=== PATIENT | female | born 1980 | race Caucasian/White ===

== ENCOUNTER 2020-06-18 15:46 | Emergency (ER) | payer OTHER, SELFPAY ==
[2020-06-18 16:26] VITALS: BP 129/58; PULSE 69; RESP 18; TEMP 36.1; O2SAT 98; BMI 30.2
--- NOTE | 2020-06-18 19:05 | XR_ITS ---
EXAMINATION: XR CHEST CLINICAL INFORMATION: Chest pain COMPARISON: 10/04/2018 TECHNIQUE: Frontal view of the chest was obtained. FINDINGS: No significant abnormality is noted involving the heart, lungs, mediastinum, bony thorax or soft tissues. XR/XR chest 1V IMPRESSION: Unremarkable examination.
[2020-06-18 19:25] VITALS: BP 121/70; PULSE 58; RESP 13; TEMP 36.7; O2SAT 99
--- NOTE | 2020-06-18 19:38 | ECG_ITS ---
Test Reason : CHEST AIN Blood Pressure : / mmHG Vent. Rate : 063 BPM Atrial Rate : 063 BPM P-R Int : 120 ms QRS Dur : 080 ms QT Int : 394 ms P-R-T Axes : 057 067 040 degrees QTc Int : 403 ms Normal sinus rhythm Normal ECG When compared with ECG of 04-OCT-2018 18:15, No significant change was found Referred By: Nesha Arce Electronically Signed By:SHEMAR THORNE MD
[2020-06-18 19:47] LABS: MANUAL DIFF FLAG NO
--- NOTE | 2020-06-18 19:47 | ED_ITS ---
HPI - Chest Pain General Chief Complaint: Chest Pain Stated Complaint: cp Time Seen by Provider: 06/18/20 19:29 Source: patient Mode of arrival: ambulatory Limitations: no limitations History of Present Illness HPI narrative: 40yoF c PMHx of anxiety reaction, depression, chronic migraine headaches, vertigo, asthma, bronchospasm, atypical chest pain, pleurisy, rheumatoid arthritis, recurrent UTIs an ovarian cyst presenting to the ED with complaints of left-sided chest pain pressure-like in sensation intermittent for the past week constant since 12 this afternoon with associated dizziness. Reports the chest pain is worse with laying down. Reports the dizziness is worse with standing. Denies anything making the chest pain better. Denies any changes in vision, nausea/vomiting, radiation of the chest pain, paresthesias, arm numbness/tingling, palpitations, dyspnea on exertion, orthopnea, back pain, symptoms, lower extremity edema or extremity edema or any other symptoms complaints or concerns at this time. Denies recent surgery, immobilization, recent travel no long plane train or car ride, patient denies being on any OCPs, history of PE or DVT or hypercoagulation disorder. Denies any drug usage including cocaine. Denies any alcohol usage. MD complaint: chest pain Pertinent past history: asthma Onset (ago): day(s) (Intermittent for 1 week constant since 12 this afternoon) Timing of current episode: episodic and constant Prior episodes: Yes Onset: during rest and during exertion Pain location: left chest Pain radiation: none Severity: moderate Quality: other (Pressure sensation) Relieving factors: nothing Exacerbating factors: supine Treatment prior to arrival: none Risk Factors Coronary artery disease risk factors: none Thoracic aortic dissection risk factors: none Related Data On Oral Contraceptives: No Previous Rx's Medication Instructions Recorded diazepam [Valium] 5 mg PO TID PRN #10 tab 06/18/20 naproxen 500 mg PO BID PRN #10 tab 06/18/20 Allergies Allergy/AdvReac Type Severity Reaction Status Date / Time shrimp [SHRIMP] Allergy Unknown UNKNOWN Verified 06/18/20 16:26 Review of Systems Review of Systems: Constitutional : No Weight loss, No Fever, No Chills, No Night Sweats, No Fatigue, No Malaise ENT/Mouth : No Hearing loss, No Ear Pain, No Nasal Congestion, No Sinus Pain, No Hoarseness, No sore throat, No Rhinorrhea, No Swallowing Difficulty Eyes: No Eye Pain, No Swelling, No Redness, No Foreign Body, No Discharge, No Vision Changes Cardiovascular : + Chest pain, No SOB, no Dyspnea on Exertion, No Orthopnea, No Edema, No extremity swelling, No Palpitations Respiratory : + Cough, No Sputum, No Wheezing, No Dyspnea Gastrointestinal : No Nausea, No Vomiting, No Diarrhea, No abdominal Pain, No Hematochezia, No Melena Genitourinary : No irregular bleeding, No Dysuria, No Urinary Frequency, No Hematuria,No Urinary Incontinence, No Urgency, No Flank Pain, No Urinary Flow Changes, No Hesitancy Musculoskeletal : No joint pain, No Myalgias, No Joint Swelling Skin : No Skin Lesions, No rash Neuro : + Dizziness, No Weakness, No Numbness, No Paresthesias, No Loss of Consciousness, No Headache Psych : No Anxiety/Panic, No Depression, No SI/HI/AH/VH Heme/Lymph: No Bruising, No Bleeding,No Lymphadenopathy Endocrine : No Polyuria, No Polydipsia, No Temperature Intolerance Yes all other systems are reviewed and are negative [facility] Past Medical History Attestation statement: The following information was validated with the patient. Social History Social History Alcohol intake: current Alcohol intake frequency: a few times a month Smoking Status: Never smoker Use of substances other than those prescribed or required for medical reasons: No Advance Directives: No Advance Directives Information Provided: Yes Physical Exam Vital Signs: Vital Signs: Last Vital Signs Temp 98.1 F 06/18/20 19:25 Pulse 58 06/18/20 19:25 Resp 13 06/18/20 19:25 BP 121/70 06/18/20 19:25 Pulse Ox 99 06/18/20 19:25 Body Mass Index 30.2 vital signs have been reviewed as normal and appeared to be correct. Blood pressure normal. Heart rate normal. Respiration rate normal. Temperature normal. Oxygen saturation normal. Appearance: Alert. Oriented X3. No acute distress. Head: Normal external exam. Normocephalic. Atraumatic. Eyes: PERRLA. EOMI. Conjunctiva and sclera normal. Eyelids normal. ENT: Pharynx normal. Uvula midline. Moist mucous membranes. Neck: Normal inspection. Neck supple. FROM. No adenopathy. Thyroid Normal. Trachea midline. No meningeal signs. No neck mass noted. CVS: Normal heart rate and rhythm. Heart sound normal. No murmurs noted. Pulses normal throughout. Respiratory: No respiratory distress. Painless inspiration. Breath sounds nor mal. No wheezes/rales/rhonchi noted. Chest nontender. No accessory muscle usage noted or decreased air movement noted. No rashes/lesion/induration/fluctuance or signs of infection noted. Back: Full range of motion noted. Skin: Skin warm and dry. Normal skin color. Normal skin turgor. No rashe s/lesions/lacerations noted. Extremities: No lower extremity edema. No calf tenderness noted. Extremities exhibit normal range of motion. Extremities nontender. Neuro: Oriented X 3. No motor deficit. No sensory deficit. Reflexes normal. Course Course Course Narrative: 19:38pm - 40yoF c PMHx of anxiety reaction, depression, chronic migraine headaches, vertigo, asthma, bronchospasm, atypical chest pain, pleurisy, rheumatoid arthritis, recurrent UTIs an ovarian cyst presenting to the ED with complaints of left-sided chest pain pressure-like in sensation intermittent for the past week constant since 12 this afternoon with associated dizziness. Reports the chest pain is worse with laying down. Reports the dizziness is worse with standing. - Concern for ACS vs PE vs PNA vs Anxiety vs COVID-19 - Plan: Labs, CXR, EKG. Provide 5 mg of Valium and 500 mg of naproxen and re- evaluate. MDM - Chest Pain Medical Records Data Attestation: I reviewed the patient's medical records. Lab Data Attestation: I reviewed the patient's lab results. Result diagrams: 06/18/20 19:41 06/18/20 19:41 Labs: Lab Results 06/18/20 06/18/20 06/18/20 Range/Units 19:41 19:41 19:41 WBC 6.8 (4.8-10.8) X10*3/uL RBC 4.62 (4.20-5.50) X10*6/uL Hgb 14.7 (12.0-16.0) g/dl Hct 42.3 (37-47) % MCV 91.6 (80-98) fL MCH 31.8 (27.0-33.0) pg MCHC 34.8 (31.0-35.0) g/dl RDW 11.8 (11.0-16.0) % Plt Count 270 (160-400) X10*3/uL MPV 11.3 (9.4-12.3) fL Immature Gran % (Auto) 0.3 (0.0-0.4) % Neut % (Auto) 61.9 (45-73) % Lymph % (Auto) 30.4 (20-40) % Braxton % (Auto) 5.3 (2-11) % Eos % (Auto) 1.5 (0-4) % Baso % (Auto) 0.6 (0-2) % Lymph # (Auto) 2.1 (1.2-4.9) X10*3/uL Braxton # (Auto) 0.4 (0.1-1.2) X10*3/uL Eos # (Auto) 0.1 (0.0-0.4) X10*3/uL Baso # (Auto) 0.0 (0.0-0.2) X10*3/uL Abs Immat Gran (auto) 0.02 (0.00-0.03) X10*3/uL Absolute Neuts (auto) 4.2 (2.0-8.3) X10*3/uL Absolute Nucleated RBC 0.000 (0.0-0.012) X10*3/uL Nucleated RBC % (auto) 0.0 (0.0-0.2) /100WBC PT 12.9 (10.8-13.0) SEC INR 1.1 (0.9-1.1) D-Dimer < 200 NG/ML Hold Blue Top SEE NOTE Sodium 141 (135-145) mmol/L Potassium 3.8 (3.3-5.1) mmol/L Chloride 108 (96-108) mmol/L Carbon Dioxide 25 (22-29) mmol/L Anion Gap 12 (12-20) BUN 11 (9-16) mg/dL Creatinine 0.79 (0.5-1.4) mg/dL Estim Creat Clear Calc 80.9 Estimated GFR > 60 Random Glucose 80 (60-115) mg/dL Calcium 8.9 (8.4-10.2) mg/dL Magnesium 2.0 (1.6-2.6) mg/dL Troponin I High Sens (<3.5-17.0) ng/L 06/18/20 Range/Units 19:41 WBC (4.8-10.8) X10*3/uL RBC (4.20-5.50) X10*6/uL Hgb (12.0-16.0) g/dl Hct (37-47) % MCV (80-98) fL MCH (27.0-33.0) pg MCHC (31.0-35.0) g/dl RDW (11.0-16.0) % Plt Count (160-400) X10*3/uL MPV (9.4-12.3) fL Immature Gran % (Auto) (0.0-0.4) % Neut % (Auto) (45-73) % Lymph % (Auto) (20-40) % Braxton % (Auto) (2-11) % Eos % (Auto) (0-4) % Baso % (Auto) (0-2) % Lymph # (Auto) (1.2-4.9) X10*3/uL Braxton # (Auto) (0.1-1.2) X10*3/uL Eos # (Auto) (0.0-0.4) X10*3/uL Baso # (Auto) (0.0-0.2) X10*3/uL Abs Immat Gran (auto) (0.00-0.03) X10*3/uL Absolute Neuts (auto) (2.0-8.3) X10*3/uL Absolute Nucleated RBC (0.0-0.012) X10*3/uL Nucleated RBC % (auto) (0.0-0.2) /100WBC PT (10.8-13.0) SEC INR (0.9-1.1) D-Dimer NG/ML Hold Blue Top Sodium (135-145) mmol/L Potassium (3.3-5.1) mmol/L Chloride (96-108) mmol/L Carbon Dioxide (22-29) mmol/L Anion Gap (12-20) BUN (9-16) mg/dL Creatinine (0.5-1.4) mg/dL Estim Creat Clear Calc Estimated GFR Random Glucose (60-115) mg/dL Calcium (8.4-10.2) mg/dL Magnesium (1.6-2.6) mg/dL Troponin I High Sens < 3.5 (<3.5-17.0) ng/L Imaging Data Chest x-ray: Attestation: I personally reviewed and interpreted this imaging study as follows: Radiologist's impression: FINDINGS: No significant abnormality is noted involving the heart, lungs, mediastinum, bony thorax or soft tissues. XR/XR chest 1V IMPRESSION: Unremarkable examination. ECG Data ECG #1: Attestation: I personally reviewed and interpreted this ECG as follows: ECG interpretation date: 06/18/20 ECG interpretation time: 19:00 Interpretation: Normal sinus rhythm with ventricular rate of 63 with a normal [place] interval normal QRS duration normal QT/QTC interval. No acute ischemic changes noted. No prior EKGs to compare to at this time. Scores Heart Score History: -0- slightly suspicious ECG: -0- normal Age: -0- < or = 45 Risk factory: -0- no risk factors known Troponin: -0- < or = normal limit Score: 0 Risk: 1.7% Discharge Plan Discharge Clinical Impression: Atypical chest pain Patient Disposition: Home, Self-Care Instructions: Chest Pain (ED) Prescriptions: New diazepam [Valium] 5 mg tablet 5 mg PO TID PRN (Reason: muscle spasm) Qty: 10 RF: 0 naproxen 500 mg tablet 500 mg PO BID PRN (Reason: pain) Qty: 10 RF: 0 Referrals: Ludy Daley MD [Primary Care Provider] - 2 days Stand Alone Forms: Work/School Release Print Language: Kyrgyz
[2020-06-18 19:51] LABS: Basophils Percent Auto 0.6 % (0-2); Eosinophils Absolute Auto 0.1 X10*3/uL (0.0-0.4); Eosinophils Percent Auto 1.5 % (0-4); Hematocrit 42.3 % (37-47); Hemoglobin 14.7 g/dl (12.0-16.0); Imm Gran Abs Auto 0.02 X10*3/uL (0.00-0.03); Imm Gran Pct Auto 0.3 % (0.0-0.4); Lymphocytes Absolute Auto 2.1 X10*3/uL (1.2-4.9); Lymphocytes Percent Auto 30.4 % (20-40); Mean Corpuscular HGB Conc 34.8 g/dl (31.0-35.0); Mean Corpuscular Hemoglobin 31.8 pg (27.0-33.0); Mean Corpuscular Volume 91.6 fL (80-98); Mean Platelet Volume 11.3 fL (9.4-12.3); Monocytes Absolute Auto 0.4 X10*3/uL (0.1-1.2); Monocytes Percent Auto 5.3 % (2-11); Neutrophils Absolute Auto 4.2 X10*3/uL (2.0-8.3); Neutrophils Percent Auto 61.9 % (45-73); Platelet Count 270 X10*3/uL (160-400); Red Blood Count 4.62 X10*6/uL (4.20-5.50); Red Cell Distribution Width 11.8 % (11.0-16.0); White Blood Count 6.8 X10*3/uL (4.8-10.8)
[2020-06-18 19:56] LABS: INTERNATIONAL NORM RATIO 1.1 (0.9-1.1); Prothrombin Time 12.9 SEC (10.8-13.0)
[2020-06-18 20:01] LABS: D Dimer < 200 NG/ML
[2020-06-18 20:11] LABS: Anion Gap 12 (12-20); Blood Urea Nitrogen 11 mg/dL (9-16); Calcium 8.9 mg/dL (8.4-10.2); Carbon Dioxide 25 mmol/L (22-29); Chloride 108 mmol/L (96-108); Creatinine Clr Calc Pharmacy 80.9; Estimated Glomerular Filt Rate > 60; Glucose Random 80 mg/dL (60-115); Potassium 3.8 mmol/L (3.3-5.1); Sodium 141 mmol/L (135-145)
[2020-06-18 20:26] LABS: Troponin-I High Sensitivity < 3.5 ng/L (<3.5-17.0)
[2020-06-18] MEDS: NaPROXEN 500 MG TABLET PO (20:33)
[2020-06-18 20:59] VITALS: BP 110/73; PULSE 62; RESP 15; O2SAT 98
== END 2020-06-18 21:06 | disposition home or self-care (01) ==
PROVIDERS: Physician Assistant Medical; Emergency Provider Internal Medicine; PCP Internal Medicine
DX: R07.89 Other chest pain (principal); F41.1 Generalized anxiety disorder; F43.0 Acute stress reaction; R42 Dizziness and giddiness
CPT/HCPCS: 36415; 71045; 80048; 83735; 84484; 85025; 85379; 85610; 93005; 99284

== ENCOUNTER 2020-07-22 23:13 | Emergency (ER) | payer OTHER, SELFPAY ==
[2020-07-22 23:23] VITALS: BP 121/73; PULSE 61; RESP 16; TEMP 36.6; O2SAT 98; BMI 30.2
--- NOTE | 2020-07-22 23:42 | ED_ITS ---
HPI - General Adult General Chief complaint: Back Pain/Injury Stated complaint: Lower Back pain/abd pain Time Seen by Provider: 07/22/20 23:26 Source: patient Mode of arrival: ambulatory Limitations: no limitations History of Present Illness HPI narrative: 40-year-old female who presents emergency department for evaluation of lower back pain which began yesterday. The patient does not recall any injury. She states that yesterday morning at 8:30 a.m. she had a gradual onset of lower back pain. She states the pain started in the middle of her back and radiated to her left lower back. She states that the pain then developed in her right lower back as well. The pain did radiate down her left leg yesterday and now is radiating down her right leg today. She states the pain is a constant, dull ache which is 10/10 at its worst. The pain is worse with movement. She denied any fever, chills, nausea, vomiting, chest pain, shortness of breath, cough. She has had no loss of bowel or bladder control. She denies numbness or weakness of her lower extremities. She states that she took 1 dose of naproxen yesterday and 1 dose of naproxen this morning with no relief of her pain. She states that this evening the pain got severe so she came to the emergency department for evaluation. In reviewing the record, the patient was here in May 2020 for atypical chest pain/anxiety. She states that the symptoms resolved. Related Data Previous Rx's Medication Instructions Recorded diazepam [Valium] 5 mg PO TID PRN #10 tab 06/18/20 naproxen 500 mg PO BID PRN #10 tab 06/18/20 cyclobenzaprine 10 mg PO TID PRN #20 tab 07/23/20 Allergies Allergy/AdvReac Type Severity Reaction Status Date / Time shrimp [SHRIMP] Allergy Unknown UNKNOWN Verified 06/18/20 16:26 Review of Systems Review of Systems: Yes all other systems are reviewed and are negative Neurologic: Denies Abnormal speech present [facility] Past Medical History [facility] Narrative: Patient has history of asthma, depression, anxiety, pleurisy, proctitis, rheumatoid arthritis, UTI. Past surgical history of cholecystectomy, x2 and ovarian torsion. She denies tobacco, alcohol and drug use. Social History Social History Alcohol intake: current Alcohol intake frequency: a few times a month Smoking Status: Never smoker Advance Directives: No Physical Exam Vital Signs: Vital Signs: Last Vital Signs Temp 97.9 F 07/22/20 23:23 Pulse 61 07/22/20 23:23 Resp 16 07/22/20 23:23 BP 121/73 07/22/20 23:23 Pulse Ox 98 07/22/20 23:23 Body Mass Index 30.2 Const: General: cooperative and in distress moderate (Secondary to pain) Orientation/consciousness: oriented to person and oriented to place Limitations: no limitations HENMT: Head: Yes normal to inspection, Yes normocephalic and Yes atraumatic Ears: external ears normal General nose exam: Normal external nose present Face and sinus: Yes normal facial exam Mouth: Normal oral and palatal mucosa present Throat: Yes posterior oropharynx normal Eyes: Periorbital: periorbital findings normal Eyelids: Yes eyelids normal Conjunctivae: conjunctivae normal Sclerae: sclerae normal Corneas: corneas normal Pupils: Equal, round and reactive pupils present Direct Ophthalmoscopy: normal light reflex Neck: Neck: Yes full ROM, Yes no lymphadenopathy, Yes no meningeal signs, Yes trachea midline and Yes supple Chest: Chest palpation & inspection: normal inspection of the chest and normal palpation of entire chest wall Resp: Effort & Inspection: normal respiratory effort and able to speak in complete sentences Auscultation: clear to auscultation bilaterally Cardio: Rate: regular rate Rhythm: regular rhythm Heart sounds: S1 normal heart sound present, S2 normal heart sound present and no murmurs GI: Inspection: Yes normal to inspection Palpation (GI): Soft to palpation, nontender, no guarding, not rigid and No hepatosplenomegaly present : General: Yes no CVA tenderness Back/Spine/Pelvis: Back: no CVA tenderness Cervical Spine: normal cervical lordosis Thoracic/Lumbar Spine: thoracic and lumbar spine normal to inspection, paraspinal muscle tenderness bilaterally in the lower lumbar (Moderate), lumbar spinal tenderness at L1, at L2, at L3, at L4 and at L5 and No straight leg raise positive Skin: Lesions: no lesions Rashes: no rashes Wounds: no wounds Neuro: General: oriented to person, oriented to place and no meningeal signs Cranial nerves: Yes CN's II-XII intact bilaterally and Yes Equal, round and reactive pupils present Cognition (Neuro): normal cognition Speech: No Abnormal speech present Motor exam (neuro): 5/5 motor strength present throughout Extrem: General: Yes normal to inspection and Yes full ROM Psych: Appearance: well kempt Mental Status: mental status grossly normal Speech and movement: Normal speech and movement present Affect: normal affect Attitude: cooperative Thought process: Normal thought process present Thought content: Normal thought content present Course Course Course Narrative: 40-year-old female who presents emergency department for evaluation of lower back pain which began yesterday is gotten progressively worse to the point where the pain is now 10/10. The patient's vital signs were normal, the patient was afebrile. Patient's exam did reveal lumbar vertebral tenderness and lumbar sacral paraspinal muscle tenderness with negative straight leg raise bilaterally and nonfocal neurologic exam. Patient's presentation is consistent with acute musculoskeletal so drain her lower back. The patient was treated with Toradol 60 mg IM. The patient does appear to be anxious and she was given Ativan 1 mg orally. 0047: The patient feels significantly better after the above treatment. The patient was advised to take her prescribed naproxen twice a day for 4 days, extra-strength Tylenol 1000 mg 3 times a day and Flexeril 10 mg 3 times a day as needed for pain or spasm. Patient was given a note not return to work tomorrow. She was given verbal and printed instructions discharged home. Discharge Plan Discharge Clinical Impression: Back strain Qualifiers: Encounter type: initial encounter Qualified Code(s): S39.012A - Strain of muscle, fascia and tendon of lower back, initial encounter Patient Disposition: Home, Self-Care Instructions: Acute Low Back Pain (ED) Additional Instructions: Back Pain Discharge Instructions: Take your prescribed naproxen 1 pill every 12 hours for 4 days then every 12 hours as needed for pain. Take Tyleno(acetaminophen) 500 mg pills, 2 pills every 6 hours as needed for pain. Take Flexerl(cyclobenzaprine) 10 mg pills, 1 pill every 8 hours as needed for pain or muscle spasm. This is a prescription medication. This medication will make you sleepy, therefore do not drive or work while taking this medication. Apply ice for 15 minutes to the area that hurts on your back, then apply a heating a pad on low for 15 minutes. Do this 4-6 times a day to help reduce the pain in your back. Continue with normal activities as tolerated since staying in bed and not moving around will make your pain worse. Please return to the Emergency Department or see your doctor immediately if your symptoms get worse or if you develop any new symptoms that are concerning you. Follow up with your doctor in 2 day. Please read the other printed discharge instructions on back pain. Prescriptions: New cyclobenzaprine 10 mg tablet 10 mg PO TID PRN (Reason: muscle pain or spasm) Qty: 20 RF: 0 No Action diazepam [Valium] 5 mg tablet 5 mg PO TID PRN (Reason: muscle spasm) Qty: 10 RF: 0 naproxen 500 mg tablet 500 mg PO BID PRN (Reason: pain) Qty: 10 RF: 0
[2020-07-22] MEDS: Ketorolac Tromethamine 60 MG/2 ML VIAL IM (23:52)
[2020-07-22] MEDS: LORazepam 1 MG TABLET PO (23:52)
== END 2020-07-23 01:00 | disposition home or self-care (01) ==
PROVIDERS: Emergency Provider Emergency Medicine Emergency Medical Services; PCP Internal Medicine
DX: S39.012A Strain of muscle, fascia and tendon of lower back, initial encounter (principal); X58.XXXA Exposure to other specified factors, initial encounter; F41.9 Anxiety disorder, unspecified; J45.909 Unspecified asthma, uncomplicated; Z87.440 Personal history of urinary (tract) infections; Z90.49 Acquired absence of other specified parts of digestive tract; Y93.9 Activity, unspecified; Y92.9 Unspecified place or not applicable; Y99.9 Unspecified external cause status
CPT/HCPCS: 96372; 99283; 99284; J1885

== ENCOUNTER 2020-12-25 23:16 | Emergency (ER) | payer OTHER, SELFPAY ==
[2020-12-25 23:41] VITALS: BP 110/57; PULSE 52; RESP 16; TEMP 36.7; O2SAT 99; BMI 28.3
[2020-12-26] VITALS: BP 110/57; PULSE 52; RESP 16; TEMP 36.7; O2SAT 99
--- NOTE | 2020-12-26 01:34 | ED.URI ---
HPI - URI/Sore Throat General Chief Complaint: Upper Respiratory Symptoms Stated Complaint: Flu like Time Seen by Provider: 12/26/20 00:14 Source: patient Mode of arrival: ambulatory Limitations: no limitations History of Present Illness HPI Narrative: Patient post vaccinated with COVID complaining of mild headache sinus pressure , no COVID contacts lately no fever or shortness of breath or cough Related Data Previous Rx's Medication Instructions Recorded diazepam 5 mg tablet (Valium) 5 mg PO TID PRN #10 tab 06/18/20 naproxen 500 mg tablet 500 mg PO BID PRN #10 tab 06/18/20 cyclobenzaprine 10 mg tablet 10 mg PO TID PRN #20 tab 07/23/20 Allergies Allergy/AdvReac Type Severity Reaction Status Date / Time shrimp [SHRIMP] Allergy Unknown UNKNOWN Verified 06/18/20 16:26 Review of Systems Review of Systems: Yes all other systems are reviewed and are negative [facility] Social History Social History Alcohol intake: current Alcohol intake frequency: a few times a month Advance Directives: No Advance Directives Information Provided: Yes Patient : No Physical Exam Vital Signs: Vital Signs: Last Vital Signs Temp 98.0 F 12/25/20 23:41 Pulse 52 12/25/20 23:41 Resp 16 12/25/20 23:41 BP 110/57 L 12/25/20 23:41 Pulse Ox 99 12/25/20 23:41 Body Mass Index 28.3 Appearance: Alert. Oriented X3. No acute distress. ENT: Pharynx normal. Oral Mucosa moist nasal turbinates inflamed with some clear discharge no sinus tenderness Neck: Normal inspection. Neck supple. No lymphadenopathy CVS: Normal heart rate and rhythm. Pulses normal. Respiratory: No respiratory distress. Equal air entry bilateral, no wheezing/rales/rhonchi Abdomen: Soft and nontender. Skin: Skin warm and dry. . Extremities: No lower extremity edema. Neuro: Oriented X 3. MDM - URI/Sore Throat Lab Data Attestation: I reviewed the patient's lab results. Labs: Lab Results 12/26/20 Range/Units 00:48 Coronavirus (PCR) NEGATIVE (Negative) Influenza Type A (PCR) NEGATIVE (Negative) Influenza Type B (PCR) NEGATIVE (Negative) RSV RNA Qual (PCR) NEGATIVE (Negative) Discharge Plan Discharge Clinical Impression: Allergic rhinitis Qualifiers: Allergic rhinitis trigger: other Allergic rhinitis seasonality: seasonal Qualified Code(s): J30.89 - Other allergic rhinitis Patient Disposition: Home, Self-Care Instructions: Allergic Rhinitis (ED) Additional Instructions: Take Claritin daily as needed Your COVID test is negative Prescriptions: No Action cyclobenzaprine 10 mg tablet 10 mg PO TID PRN (Reason: muscle pain or spasm) Qty: 20 RF: 0 diazepam [Valium] 5 mg tablet 5 mg PO TID PRN (Reason: muscle spasm) Qty: 10 RF: 0 naproxen 500 mg tablet 500 mg PO BID PRN (Reason: pain) Qty: 10 RF: 0
[2020-12-26 01:50] LABS: Influenza A PCR NEGATIVE (Negative); Influenza B PCR NEGATIVE (Negative); Resp Syncy Virus RNA Qual PCR NEGATIVE (Negative); SARS COV2 PCR INHOUSE NEGATIVE (Negative)
== END 2020-12-26 02:15 | disposition home or self-care (01) ==
PROVIDERS: Emergency Provider Internal Medicine; PCP Internal Medicine
DX: J30.89 Other allergic rhinitis (principal); Z20.822 Contact with and (suspected) exposure to COVID-19; R51.9 Headache, unspecified
CPT/HCPCS: 0241U; 36415; 99283; 99285

== ENCOUNTER 2021-01-18 02:31 | Emergency (ER) | payer OTHER, SELFPAY ==
[2021-01-18 02:46] VITALS: BP 116/59; PULSE 67; RESP 16; TEMP 36.1; O2SAT 99; BMI 32.4
--- NOTE | 2021-01-18 03:06 | ED.URI ---
HPI - URI/Sore Throat General Chief Complaint: Upper Respiratory Symptoms Stated Complaint: Covid symptoms Time Seen by Provider: 01/18/21 02:39 Source: patient Mode of arrival: ambulatory History of Present Illness HPI Narrative: 40-year-old female with positive COVID-19 exposure via her boyfriend now comes in with body aches but denies any fevers, nausea, vomiting. Patient has had both COVID-19 vaccines. Related Data Previous Rx's Medication Instructions Recorded diazepam 5 mg tablet (Valium) 5 mg PO TID PRN #10 tab 06/18/20 naproxen 500 mg tablet 500 mg PO BID PRN #10 tab 06/18/20 cyclobenzaprine 10 mg tablet 10 mg PO TID PRN #20 tab 07/23/20 Allergies Allergy/AdvReac Type Severity Reaction Status Date / Time shrimp [SHRIMP] Allergy Unknown UNKNOWN Verified 06/18/20 16:26 Review of Systems Review of Systems: Pertinent positives and negatives as stated in HPI 10 point review of systems is otherwise negative. [facility] Past Medical History Source: nursing notes reviewed Social History Social History Alcohol intake: never Patient Tobacco Use Status: Never used Tobacco Advance Directives: No Patient : No Physical Exam Vital Signs: Vital Signs: Last Vital Signs Temp 97.0 F 01/18/21 02:46 Pulse 67 01/18/21 02:46 Resp 16 01/18/21 02:46 BP 116/59 L 01/18/21 02:46 Pulse Ox 99 01/18/21 02:46 Body Mass Index 32.4 VITAL SIGNS: Reviewed. GENERAL: Well developed, well nourished, in no acute distress. HEAD: Normocephalic/atraumatic EYES: PERRLA, EOMI OROPHARYNX: no oral lesions noted, posterior pharynx clear but erythematous without noted tonsillar enlargement/erythema/exudates NECK: Supple, no adenopathy LUNGS: Normal breath sounds. No adventitious sounds or accessory muscle use. SpO2<99> CARDIOVASCULAR: Regular rate and rhythm without noted murmurs ABDOMEN: Soft, non-tender, non-distended with bowel sounds. Course Course Course Narrative: 40-year-old female with history and clinical presentation consistent with viral syndrome and on review of all investigations patient is found to be COVID-19 positive MDM - URI/Sore Throat Lab Data Labs: Lab Results 01/18/21 Range/Units 02:58 COVID-19 (BELL) Positive A (Negative) COVID-19 Clin Com See Note Discharge Plan Discharge Clinical Impression: Lab test positive for detection of COVID-19 virus, Viral syndrome Patient Disposition: Home, Self-Care Instructions: COVID-19 (Coronavirus Disease 2019) (ED), Viral Syndrome (ED) Additional Instructions: 1. You must quarantine for 14 days and follow all state and Federal guidelines regarding COVID-19 positivity. 2. Increase fluid hydration especially with water and treat all body aches and temperatures greater than 100.4 with [id number] Tylenol/ibuprofen. 3. Follow-up with your primary care provider next 2-3 days via telemedicine appointment. Return to the ER for acute worsening of symptoms. Prescriptions: No Action cyclobenzaprine 10 mg tablet 10 mg PO TID PRN (Reason: muscle pain or spasm) Qty: 20 RF: 0 diazepam [Valium] 5 mg tablet 5 mg PO TID PRN (Reason: muscle spasm) Qty: 10 RF: 0 naproxen 500 mg tablet 500 mg PO BID PRN (Reason: pain) Qty: 10 RF: 0 Referrals: Physician,Unknown [Primary Care Provider] - 2 days
[2021-01-18 03:12] LABS: IDNOW Serial# 9DD0AD1C
[2021-01-18 03:15] LABS: COVID-19 Test Positive (Negative)
[2021-01-18 05:14] VITALS: PULSE 72; RESP 16; O2SAT 100
== END 2021-01-18 05:17 | disposition home or self-care (01) ==
PROVIDERS: Emergency Provider Student in an Organized Health Care Education/Training Program
DX: U07.1 COVID-19 (principal); B34.9 Viral infection, unspecified
CPT/HCPCS: 36415; 87635; 99283; 99284

== ENCOUNTER 2021-01-23 21:48 | Emergency (ER) | payer OTHER, SELFPAY ==
--- NOTE | 2021-01-23 | ECG_ITS ---
Test Reason : CHEST PAIN Blood Pressure : / mmHG Vent. Rate : 066 BPM Atrial Rate : 066 BPM P-R Int : 122 ms QRS Dur : 084 ms QT Int : 392 ms P-R-T Axes : 050 077 044 degrees QTc Int : 410 ms Normal sinus rhythm Normal ECG When compared with ECG of 18-JUN-2020 16:19, No significant change was found Referred By: Generic ED Physician Electronically Signed By:LAKISHA RIOS
--- NOTE | ~2021-01-23 | XR_ITS ---
EXAMINATION: XR CHEST CLINICAL INFORMATION: COVID positive COMPARISON: 06/18/2020 TECHNIQUE: AP portable upright view of the chest was obtained. FINDINGS: No plain film evidence for COVID pneumonia. Incidental azygous fissure again noted. Normal lung volumes. No consolidation effusion or pneumothorax. Normal, stable cardiac and mediastinal contours. Cholecystectomy. Normal gas pattern. Normal osseous structures. XR/XR chest 1V IMPRESSION: No focal pneumonia.
[2021-01-23 22:04] VITALS: BP 113/70; PULSE 65; RESP 18; TEMP 36.6; O2SAT 98; BMI 33.3
--- NOTE | 2021-01-23 22:26 | ED_ITS ---
HPI - Chest Pain General Chief Complaint: Chest Pain Stated Complaint: covid + Time Seen by Provider: 01/23/21 22:16 Source: patient Mode of arrival: ambulatory Limitations: no limitations History of Present Illness HPI narrative: Patient comes emergency room complaining of substernal chest pain that is present with coughing. Patient states that she has been having dry cough for a week, 6 days ago she tested positive for COVID-19. Patient denies shortness of breath, no vomiting or diarrhea. Patient states that this time she has no chest pain, is only happens when she coughs, in the middle of the chest. Related Data Previous Rx's Medication Instructions Recorded diazepam 5 mg tablet (Valium) 5 mg PO TID PRN #10 tab 06/18/20 naproxen 500 mg tablet 500 mg PO BID PRN #10 tab 06/18/20 cyclobenzaprine 10 mg tablet 10 mg PO TID PRN #20 tab 07/23/20 benzonatate 100 mg capsule 100 mg PO TID PRN #10 cap 01/23/21 (Laron Betancourt) Allergies Allergy/AdvReac Type Severity Reaction Status Date / Time shrimp [SHRIMP] Allergy Unknown UNKNOWN Verified 06/18/20 16:26 Review of Systems Review of Systems: Constitutional : No Weight loss, No Fever, No Chills, No Night Sweats, No Fatigue, No Malaise ENT/Mouth : No Hearing loss, No Ear Pain, No Nasal Congestion, No Sinus Pain, No Hoarseness, No sore throat, No Rhinorrhea, No Swallowing Difficulty Eyes: No Eye Pain, No Swelling, No Redness, No Foreign Body, No Discharge, No Vision Changes Cardiovascular : Substernal chest pressure while coughing No SOB, No Dyspnea on Exertion, No Orthopnea, No Edema, No Palpitations Respiratory : Dry Cough, No Sputum, No Wheezing, No Smoke Exposure, No Dyspnea Gastrointestinal : No Nausea, No Vomiting, No Diarrhea, No Constipation, No abdominal Pain, No Hematochezia, No Melena Genitourinary : no irregular bleeding, No Dysuria, No Urinary Frequency, No Hematuria, No Urinary Incontinence, No Urgency, No Flank Pain, No Urinary Flow Changes, No Hesitancy Musculoskeletal : No joint pain, No Myalgias, No Joint Swelling Skin : No Skin Lesions, No rash Neuro : No Weakness, No Numbness, No Paresthesias, No Loss of Consciousness, No Dizziness, No Headache Psych : No Anxiety/Panic, No Depression, No SI/HI/AH/VH, No Social Issues, Heme/Lymph: No Bruising, No Bleeding,No Lymphadenopathy Endocrine : No Polyuria, No Polydipsia, No Temperature Intolerance COUNT INCLUDES THE [facility] Past Medical History Medical History (Updated 01/23/21 @ 23:51 by Lindsey Noriega MD) COVID-19 Social History Social History Alcohol intake: never Patient Tobacco Use Status: Never used Tobacco Use of substances other than those prescribed or required for medical reasons: No Advance Directives: No Advance Directives Information Provided: No Physical Exam Vital Signs: Vital Signs: Last Vital Signs Temp 97.8 F 01/23/21 22:04 Pulse 65 01/23/21 22:04 Resp 18 01/23/21 22:04 BP 113/70 01/23/21 22:04 Pulse Ox 98 01/23/21 22:04 Body Mass Index 33.3 Const: Other: Appearance: Alert. Oriented X3. No acute distress. Well- appearing Eyes: Pupils equal, round and reactive to light. ENT: Pharynx normal. Neck: Normal inspection. Neck supple. No lymph nodes noted. No crepitus CVS: Normal heart rate and rhythm. Pulses normal. Normal S1 and S2, clear reproducible chest pain to palpation over the sternum Respiratory: No respiratory distress. Breath sounds normal. No Wheezing. No rales Abdomen: Soft and nontender. No rigidity. No distention. Skin: Skin warm and dry. Normal skin color. Normal skin turgor. Extremities: No lower extremity edema. No lower extremity edema. No Lacerations. No Rash Neuro: Oriented X 3. No motor deficit. No sensory deficit. Moving all extermities. No slurred speech. Course Course Course Narrative: I discussed the x-ray finding with the patient, patient's pain is musculoskeletal, has reproducible pain on deep palpation, and the chest pain only is present with coughs, otherwise asymptomatic. Chest pain from cardiac etiology not suspected at this time. MDM - Chest Pain Imaging Data Chest x-ray: Radiologist's impression: No plain film evidence for COVID pneumonia. Incidental azygous fissure again noted. Normal lung volumes. No consolidation effusion or pneumothorax. Normal, stable cardiac and mediastinal contours. Cholecystectomy. Normal gas pattern. Normal osseous structures. XR/XR chest 1V IMPRESSION: No focal pneumonia. ECG Data ECG #1: Attestation: I personally reviewed and interpreted this ECG as follows: (Heart rate 66, no ST segment depression or elevation, no T-wave inversion, QTC 410) Discharge Plan Discharge Clinical Impression: Costochondritis Patient Disposition: Home, Self-Care Instructions: Costochondritis (ED) Additional Instructions: Please follow-up with your primary care physician tomorrow. If you have any worsening or new symptoms, please return to the emergency room or call 911 Prescriptions: New benzonatate [Tessalon Perles] 100 mg capsule 100 mg PO TID PRN (Reason: cough) Qty: 10 RF: 0 No Action cyclobenzaprine 10 mg tablet 10 mg PO TID PRN (Reason: muscle pain or spasm) Qty: 20 RF: 0 diazepam [Valium] 5 mg tablet 5 mg PO TID PRN (Reason: muscle spasm) Qty: 10 RF: 0 naproxen 500 mg tablet 500 mg PO BID PRN (Reason: pain) Qty: 10 RF: 0
[2021-01-23] MEDS: Benzonatate 100 MG CAPSULE 200 MG PO (23:10)
== END 2021-01-24 00:10 | disposition home or self-care (01) ==
PROVIDERS: Emergency Provider Emergency Medicine
DX: M94.0 Chondrocostal junction syndrome [Tietze] (principal); R07.89 Other chest pain; R05 Cough; Z20.822 Contact with and (suspected) exposure to COVID-19; Z79.899 Other long term (current) drug therapy; Z86.16 Personal history of COVID-19
CPT/HCPCS: 71045; 93005; 99284

== ENCOUNTER 2021-07-17 21:34 | Emergency (ER) | payer OTHER, SELFPAY ==
--- NOTE | ~2021-07-17 | CT_ITS ---
EXAMINATION: CT ABDOMEN AND PELVIS WITH CONTRAST CLINICAL INFORMATION: Right lower quadrant pain COMPARISON: 05/12/2018 TECHNIQUE: Multidetector volumetric images were obtained from the superior aspect of the liver through the pubic symphysis following administration 85 mL of Omnipaque 350 intravenous contrast. Sagittal and coronal reformatted images were obtained on the technologist's workstation. Oral contrast: No This CT examination was performed using dose optimization techniques as appropriate, variously including the following: *Automated exposure control *Adjustment of mA and/or kV according to patient size (this includes techniques or standardized protocols for targeted exams where dose is matched to indication/reason for exam; i.e. extremities or head) *Use of iterative reconstruction technique DLP: 464 mGy-cm FINDINGS: LUNG BASES: The visualized lung bases are unremarkable. LIVER, GALLBLADDER, AND BILIARY TREE: The liver is normal in size, shape, and attenuation. No biliary ductal dilatation is present. Multiple hypoattenuating lesions throughout the liver, too small to fully characterize. Cholecystectomy. PANCREAS: Unremarkable. SPLEEN: Unremarkable. ADRENAL GLANDS: Unremarkable. KIDNEYS AND URETERS: The kidneys are normal in size, shape, and attenuation. No hydronephrosis, hydroureter, or calculi seen. No perinephric stranding. BLADDER: Unremarkable. GASTROINTESTINAL TRACT: The small and large bowel are unremarkable. The appendix is unremarkable. ABDOMINAL WALL: No significant hernia is appreciated. LYMPH NODES: Normal. VASCULAR: Unremarkable. PELVIC VISCERA: Anteverted uterus. No suspicious adnexal mass. Prominent follicles in both ovaries. Trace pelvic free fluid. OSSEOUS STRUCTURES: No acute or suspicious osseous abnormality. CT/CT abdomen pelvis w con IMPRESSION: No suspicious findings of the abdomen or pelvis. Prominent follicles of both ovaries with trace pelvic free fluid, likely physiologic. Fleischner guidelines were followed.
--- NOTE | ~2021-07-17 | US_ITS ---
EXAMINATION: ULTRASOUND OF THE PELVIS CLINICAL INFORMATION: Pain. Rule out torsion.. COMPARISON: None. TECHNIQUE: Transabdominal and transvaginal pelvic ultrasound. Doppler evaluation with spectral analysis was performed. A transvaginal study was performed in addition to the transabdominal study which did not yield an adequate examination of the uterus and ovaries due to superimposed distended gas-filled loops of bowel. FINDINGS: The uterus is normal in size and appearance, measuring 12.9 x 3.7 x 6.4 cm longitudinally, anteroposteriorly and transversely. The endometrial stripe thickness is normal, measuring 1.2 cm in thickness. No focal myometrial mass is seen. Nabothian cyst at the cervix. The ovaries bilaterally are visualized and appear normal, with the right ovary measuring 4 x 2.8 x 3.3 cm and the left ovary measuring 4.4 x 1.7 x 2.9 cm. There are normal arterial and venous spectral waveforms bilaterally. Trace pelvic free fluid. US/US pelvic and transvaginal IMPRESSION: Unremarkable pelvic ultrasound. No evidence of active ovarian torsion at this time..
--- NOTE | ~2021-07-17 | US_ITS ---
EXAMINATION: ULTRASOUND OF THE PELVIS CLINICAL INFORMATION: Pain. Rule out torsion.. COMPARISON: None. TECHNIQUE: Transabdominal and transvaginal pelvic ultrasound. Doppler evaluation with spectral analysis was performed. A transvaginal study was performed in addition to the transabdominal study which did not yield an adequate examination of the uterus and ovaries due to superimposed distended gas-filled loops of bowel. FINDINGS: The uterus is normal in size and appearance, measuring 12.9 x 3.7 x 6.4 cm longitudinally, anteroposteriorly and transversely. The endometrial stripe thickness is normal, measuring 1.2 cm in thickness. No focal myometrial mass is seen. Nabothian cyst at the cervix. The ovaries bilaterally are visualized and appear normal, with the right ovary measuring 4 x 2.8 x 3.3 cm and the left ovary measuring 4.4 x 1.7 x 2.9 cm. There are normal arterial and venous spectral waveforms bilaterally. Trace pelvic free fluid. US/US pelvic ovarian doppler IMPRESSION: Unremarkable pelvic ultrasound. No evidence of active ovarian torsion at this time..
[2021-07-17 21:37] VITALS: BP 113/79; PULSE 62; RESP 17; TEMP 36.2; O2SAT 98; BMI 29.9
[2021-07-17 23:46] VITALS: BP 116/62; PULSE 56; RESP 12; TEMP 36.9; O2SAT 100
--- NOTE | 2021-07-17 23:47 | ED_ITS ---
HPI - Female Genitourinary General Chief complaint: Urogenital-Female Stated complaint: uro gen female Time Seen by Provider: 07/17/21 21:51 Source: patient Mode of arrival: ambulatory Limitations: no limitations History of Present Illness HPI Narrative: Patient comes to the emergency room complaining of right lower quadrant pain. Patient states it started tonight while shopping. The pain is intermittent, radiates towards the back. Patient states she has had ovarian cysts in the past. Patient denies nausea vomiting or diarrhea, no hematuria or dysuria. No flank pain. No fever chills. Related Data Previous Rx's Medication Instructions Recorded diazepam 5 mg tablet (Valium) 5 mg PO TID PRN #10 tab 06/18/20 naproxen 500 mg tablet 500 mg PO BID PRN #10 tab 06/18/20 cyclobenzaprine 10 mg tablet 10 mg PO TID PRN #20 tab 07/23/20 benzonatate 100 mg capsule 100 mg PO TID PRN #10 cap 01/23/21 (Tessalon [place]) ketorolac 10 mg tablet 10 mg PO TID PRN 5 Days #10 tab 07/18/21 tramadol 50 mg tablet 50 mg PO BID PRN #7 tab 07/18/21 Allergies Allergy/AdvReac Type Severity Reaction Status Date / Time No Known Allergies Allergy Verified 07/17/21 21:37 Review of Systems Review of Systems: Constitutional : No Weight loss, No Fever, No Chills, No Night Sweats, No Fatigue, No Malaise ENT/Mouth : No Hearing loss, No Ear Pain, No Nasal Congestion, No Sinus Pain, No Hoarseness, No sore throat, No Rhinorrhea, No Swallowing Difficulty Eyes: No Eye Pain, No Swelling, No Redness, No Foreign Body, No Discharge, No Vision Changes Cardiovascular : No Chest Pain, No SOB, No Dyspnea on Exertion, No Orthopnea, No Edema, No Palpitations Respiratory : No Cough, No Sputum, No Wheezing, No Smoke Exposure, No Dyspnea Gastrointestinal : No Nausea, No Vomiting, No Diarrhea, No Constipation, complaining of right lower quadrant pain radiating towards the back, No Hematochezia, No Melena Genitourinary : no irregular bleeding, No Dysuria, No Urinary Frequency, No Hematuria, No Urinary Incontinence, No Urgency, No Flank Pain, No Urinary Flow Changes, No Hesitancy Musculoskeletal : No joint pain, No Myalgias, No Joint Swelling Skin : No Skin Lesions, No rash Neuro : No Weakness, No Numbness, No Paresthesias, No Loss of Consciousness, No Dizziness, No Headache Psych : No Anxiety/Panic, No Depression, No SI/HI/AH/VH, No Social Issues, Heme/Lymph: No Bruising, No Bleeding,No Lymphadenopathy Endocrine : No Polyuria, No Polydipsia, No Temperature Intolerance [facility] Past Medical History Medical History Asthma COVID-19 Migraine Ovarian cyst Surgical History Hx of tubal ligation Social History Social History Alcohol intake: never Patient Tobacco Use Status: Never used Tobacco Advance Directives: No Advance Directives Information Provided: Yes Patient : No Physical Exam Vital Signs: Vital Signs: Last Vital Signs Temp 98.6 F 07/18/21 02:26 Pulse 52 07/18/21 02:26 Resp 12 07/18/21 02:26 BP 121/68 07/18/21 02:26 Pulse Ox 99 07/18/21 02:26 BMI result Body Mass Index 29.9 Const: Other: Appearance: Alert. Oriented X3. No acute distress. Eyes: Pupils equal, round and reactive to light. ENT: Pharynx normal. Neck: Normal inspection. Neck supple. No lymph nodes noted. No crepitus CVS: Normal heart rate and rhythm. Pulses normal. Normal S1 and S2 Respiratory: No respiratory distress. Breath sounds normal. No Wheezing. No rales Abdomen: Soft , pain to palpation on the right lower quadrant, borderline rebound and guarding Back: No CVA tenderness Skin: Skin warm and dry. Normal skin color. Normal skin turgor. Extremities: No lower extremity edema. No Lacerations. No Rash Neuro: Oriented X 3. No motor deficit. No sensory deficit. Moving all extermi ties. No slurred speech. Course Course Course Narrative: I discussed the CT scan and the ultrasound with the patient, at this time, there is no evidence of ovarian torsion. However she has prominent ovarian cyst. 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 Patient received 1 dose of IV Toradol and 1 p.o. dose of tramadol. MDM - Female Genitourinary Lab Data Result diagrams: 07/18/21 00:11 07/18/21 00:11 Labs: Lab Results 07/18/21 07/18/21 07/18/21 Range/Units 00:11 00:11 00:22 WBC 8.9 (4.8-10.8) X10*3/uL RBC 4.59 (4.20-5.50) X10*6/uL Hgb 14.6 (12.0-16.0) g/dl Hct 42.5 (37.0-47.0) % MCV 92.6 (80.0-98.0) fL MCH 31.8 (27.0-33.0) pg MCHC 34.4 (31.0-35.0) g/dl RDW 12.1 (11.0-16.0) % Plt Count 247 (160-400) X10*3/uL MPV 11.3 (9.4-12.3) fL Immature Gran % (Auto) 0.2 (0.0-0.4) % Neut % (Auto) 67.2 (45-73) % Lymph % (Auto) 25.3 (20-40) % Young % (Auto) 5.5 (2-11) % Eos % (Auto) 1.2 (0-4) % Baso % (Auto) 0.6 (0-2) % Lymph # (Auto) 2.2 (1.2-4.9) X10*3/uL Young # (Auto) 0.5 (0.1-1.2) X10*3/uL Eos # (Auto) 0.1 (0.0-0.4) X10*3/uL Baso # (Auto) 0.1 (0.0-0.2) X10*3/uL Abs Immat Gran (auto) 0.02 (0.00-0.03) X10*3/uL Absolute Neuts (auto) 6.0 (2.0-8.3) x10*3/uL Absolute Nucleated RBC 0.000 (0.0-0.012) X10*3/uL Nucleated RBC % (auto) 0.0 (0.0-0.2) /100WBC Sodium 140 (135-145) mmol/L Potassium 4.3 (3.3-5.1) mmol/L Chloride 106 (96-108) mmol/L Carbon Dioxide 26 (22-29) mmol/L Anion Gap 12 (12-20) BUN 14 (9-16) mg/dL Creatinine 0.74 (0.5-1.4) mg/dL Estim Creat Clear Calc 85.0 Estimated GFR > 60 Random Glucose 87 (60-115) mg/dL Calcium 9.9 D (8.4-10.2) mg/dL Total Bilirubin 1.7 H (0.0-1.0) mg/dL Direct Bilirubin 0.6 H (0.0-0.5) mg/dL AST 17 (5-31) U/L ALT 19 (0-31) U/L Alkaline Phosphatase 59 (39-117) U/L Total Protein 7.3 (6.5-8.0) g/dL Albumin 4.2 (3.5-5.0) g/dL Urine Color YELLOW Urine Appearance CLEAR Urine pH 6.0 (5.0-8.0) Ur Specific [place] >= 1.030 H (1.005-1.025) Urine Protein NEG (NEG-TRACE) MG/DL Urine Glucose (UA) NEG (NEG) MG/DL Urine Ketones NEG (NEG) MG/DL Urine Blood NEG (NEG) Urine Nitrite NEG (NEG) Ur Leukocyte Esterase NEG (NEG) Urine Test (NEGATIVE) 07/18/21 Range/Units 00:22 WBC (4.8-10.8) X10*3/uL RBC (4.20-5.50) X10*6/uL Hgb (12.0-16.0) g/dl Hct (37.0-47.0) % MCV (80.0-98.0) fL MCH (27.0-33.0) pg MCHC (31.0-35.0) g/dl RDW (11.0-16.0) % Plt Count (160-400) X10*3/uL MPV (9.4-12.3) fL Immature Gran % (Auto) (0.0-0.4) % Neut % (Auto) (45-73) % Lymph % (Auto) (20-40) % Young % (Auto) (2-11) % Eos % (Auto) (0-4) % Baso % (Auto) (0-2) % Lymph # (Auto) (1.2-4.9) X10*3/uL Young # (Auto) (0.1-1.2) X10*3/uL Eos # (Auto) (0.0-0.4) X10*3/uL Baso # (Auto) (0.0-0.2) X10*3/uL Abs Immat Gran (auto) (0.00-0.03) X10*3/uL Absolute Neuts (auto) (2.0-8.3) x10*3/uL Absolute Nucleated RBC (0.0-0.012) X10*3/uL Nucleated RBC % (auto) (0.0-0.2) /100WBC Sodium (135-145) mmol/L Potassium (3.3-5.1) mmol/L Chloride (96-108) mmol/L Carbon Dioxide (22-29) mmol/L Anion Gap (12-20) BUN (9-16) mg/dL Creatinine (0.5-1.4) mg/dL Estim Creat Clear Calc Estimated GFR Random Glucose (60-115) mg/dL Calcium (8.4-10.2) mg/dL Total Bilirubin (0.0-1.0) mg/dL Direct Bilirubin (0.0-0.5) mg/dL AST (5-31) U/L ALT (0-31) U/L Alkaline Phosphatase (39-117) U/L Total Protein (6.5-8.0) g/dL Albumin (3.5-5.0) g/dL Urine Color Urine Appearance Urine pH (5.0-8.0) Ur Specific [place] (1.005-1.025) Urine Protein (NEG-TRACE) MG/DL Urine Glucose (UA) (NEG) MG/DL Urine Ketones (NEG) MG/DL Urine Blood (NEG) Urine Nitrite (NEG) Ur Leukocyte Esterase (NEG) Urine Test NEGATIVE (NEGATIVE) Imaging Data US - abdomen: Radiologist's impression: FINDINGS: The uterus is normal in size and appearance, measuring 12.9 x 3.7 x 6.4 cm longitudinally, anteroposteriorly and transversely. The endometrial stripe thickness is normal, measuring 1.2 cm in thickness. No focal myometrial mass is seen. Nabothian cyst at the cervix. The ovaries bilaterally are visualized and appear normal, with the right ovary measuring 4 x 2.8 x 3.3 cm and the left ovary measuring 4.4 x 1.7 x 2.9 cm. There are normal arterial and venous spectral waveforms bilaterally. Trace pelvic free fluid. US/US pelvic ovarian doppler IMPRESSION: Unremarkable pelvic ultrasound. No evidence of active ovarian torsion at this time.. CT scan - abdomen: Radiologist's impression: FINDINGS: LUNG BASES: The visualized lung bases are unremarkable.? LIVER, GALLBLADDER, AND BILIARY TREE: The liver is normal in size, shape, and attenuation. No biliary ductal dilatation is present. Multiple hypoattenuating lesions throughout the liver, too small to fully characterize. Cholecystectomy.? PANCREAS: Unremarkable.? SPLEEN: Unremarkable.? ADRENAL GLANDS: Unremarkable.? KIDNEYS AND URETERS: The kidneys are normal in size, shape, and attenuation. No hydronephrosis, hydroureter, or calculi seen. No perinephric stranding. ? BLADDER: Unremarkable.? GASTROINTESTINAL TRACT: The small and large bowel are unremarkable. The appendix is unremarkable.? ABDOMINAL WALL: No significant hernia is appreciated.? LYMPH NODES: Normal. VASCULAR: Unremarkable. PELVIC VISCERA: Anteverted uterus. No suspicious adnexal mass. Prominent follicles in both ovaries. Trace pelvic free fluid.? OSSEOUS STRUCTURES: No acute or suspicious osseous abnormality.? CT/CT abdomen pelvis w con IMPRESSION: No suspicious findings of the abdomen or pelvis. Prominent follicles of both ovaries with trace pelvic free fluid, likely physiologic. ? ? ? Fleischner guidelines were followed. Discharge Plan Discharge Clinical Impression: Ovarian cyst Patient Disposition: Home, Self-Care Instructions: Ovarian Cyst (ED) Additional Instructions: Please follow-up with your primary care physician tomorrow. If you have any worsening or new symptoms, please return to the emergency room or call 911 Prescriptions: New ketorolac 10 mg tablet 10 mg PO TID PRN (Reason: pain) 5 Days Qty: 10 0RF Rx Instructions: Do not use naproxen, ibuprofen. You may use tramadol or Tylenol if needed tramadol 50 mg tablet 50 mg PO BID PRN (Reason: pain) Qty: 7 0RF No Action cyclobenzaprine 10 mg tablet 10 mg PO TID PRN (Reason: muscle pain or spasm) Qty: 20 0RF benzonatate [Tessalon Perles] 100 mg capsule 100 mg PO TID PRN (Reason: cough) Qty: 10 0RF diazepam [Valium] 5 mg tablet 5 mg PO TID PRN (Reason: muscle spasm) Qty: 10 0RF naproxen 500 mg tablet 500 mg PO BID PRN (Reason: pain) Qty: 10 0RF
[2021-07-18 00:16] LABS: MANUAL DIFF FLAG NO
[2021-07-18 00:22] LABS: Basophils Absolute Auto 0.1 X10*3/uL (0.0-0.2); Basophils Percent Auto 0.6 % (0-2); Eosinophils Absolute Auto 0.1 X10*3/uL (0.0-0.4); Eosinophils Percent Auto 1.2 % (0-4); Hematocrit 42.5 % (37.0-47.0); Hemoglobin 14.6 g/dl (12.0-16.0); Imm Gran Abs Auto 0.02 X10*3/uL (0.00-0.03); Imm Gran Pct Auto 0.2 % (0.0-0.4); Lymphocytes Absolute Auto 2.2 X10*3/uL (1.2-4.9); Lymphocytes Percent Auto 25.3 % (20-40); Mean Corpuscular HGB Conc 34.4 g/dl (31.0-35.0); Mean Corpuscular Hemoglobin 31.8 pg (27.0-33.0); Mean Corpuscular Volume 92.6 fL (80.0-98.0); Mean Platelet Volume 11.3 fL (9.4-12.3); Monocytes Absolute Auto 0.5 X10*3/uL (0.1-1.2); Monocytes Percent Auto 5.5 % (2-11); Neutrophils Percent Auto 67.2 % (45-73); Platelet Count 247 X10*3/uL (160-400); Red Blood Count 4.59 X10*6/uL (4.20-5.50); Red Cell Distribution Width 12.1 % (11.0-16.0); White Blood Count 8.9 X10*3/uL (4.8-10.8)
[2021-07-18 00:40] LABS: Alanine Aminotransferase 19 U/L (0-31); Albumin Level 4.2 g/dL (3.5-5.0); Alkaline Phosphatase 59 U/L (39-117); Anion Gap 12 (12-20); Aspartate Amino Transferase 17 U/L (5-31); Bilirubin Direct 0.6 mg/dL (0.0-0.5); Bilirubin Total 1.7 mg/dL (0.0-1.0); Blood Urea Nitrogen 14 mg/dL (9-16); Calcium 9.9 mg/dL (8.4-10.2); Carbon Dioxide 26 mmol/L (22-29); Chloride 106 mmol/L (96-108); Estimated Glomerular Filt Rate > 60; Glucose Random 87 mg/dL (60-115); Potassium 4.3 mmol/L (3.3-5.1); Sodium 140 mmol/L (135-145); Total Protein 7.3 g/dL (6.5-8.0)
[2021-07-18 00:41] LABS: Appearance Urine CLEAR; Color Urine YELLOW; Glucose Urine UA NEG (NEG); Leukocyte Esterase Urine NEG (NEG); Nitrite Urine NEG (NEG); Specific Gravity - Urine >= 1.030 (1.005-1.025); Urine Blood NEG (NEG); Urine Ketones NEG (NEG); Urine Protein NEG (NEG-TRACE)
[2021-07-18] MEDS: Ketorolac Tromethamine 30 MG/ML VIAL IVPUSH (00:42)
[2021-07-18 00:48] LABS: UPreg QC Valid YES; Urine Pregnancy NEGATIVE (NEGATIVE)
[2021-07-18] MEDS: iohexoL 350 MG/ML 100 ML INFUS..BTL 85 ML IV (00:57)
[2021-07-18 02:26] VITALS: BP 121/68; PULSE 52; RESP 12; TEMP 37; O2SAT 99
== END 2021-07-18 03:40 | disposition home or self-care (01) ==
PROVIDERS: Emergency Provider Emergency Medicine; PCP Internal Medicine
DX: N83.201 Unspecified ovarian cyst, right side (principal); R10.31 Right lower quadrant pain; M54.50 Low back pain, unspecified; Z79.899 Other long term (current) drug therapy
CPT/HCPCS: 36415; 74177; 76830; 76856; 80048; 80076; 81003; 81025; 85025; 93975; 96374; 99283; 99284; J1885; Q9967

== ENCOUNTER 2021-09-19 06:46 | Outpatient (REF) | payer OTHER, SELFPAY ==
--- NOTE | ~2021-09-19 | XR_ITS ---
EXAMINATION: XI KNEES, STANDING AP XR KNEE, RIGHT XR KNEE, LEFT CLINICAL INFORMATION: Knee pain, M25.569 COMPARISON: Standing AP knees and right knee radiographs 01/15/2017. TECHNIQUE: Standing AP view of both knees is performed. In addition, each knee is imaged in lateral and axial patella views. FINDINGS: Right: Normal bony mineralization. No fracture, dislocation, or destructive process. No definite joint narrowing. No erosive change or chondrocalcinosis or subchondral sclerosis. No effusion. Hoffa's fat pad appears normal. Axial view patella shows no lateralization or tilting. Left: Normal bony mineralization. No fracture, dislocation, or destructive process. No definite joint narrowing. No erosive change or chondrocalcinosis or subchondral sclerosis. No effusion. Hoffa's fat pad appears normal. Punctate soft tissue mineralization overlies the mid patellar tendon on lateral view. Axial view patella shows no lateralization or tilting. XR/XR knee standing BI IMPRESSION: -No focal joint narrowing or subchondral sclerosis. No erosive change. -No suprapatellar effusion. -No lateralization or tilting patella.
--- NOTE | ~2021-09-19 | XR_ITS ---
EXAMINATION: XI KNEES, STANDING AP XR KNEE, RIGHT XR KNEE, LEFT CLINICAL INFORMATION: Knee pain, M25.569 COMPARISON: Standing AP knees and right knee radiographs 01/15/2017. TECHNIQUE: Standing AP view of both knees is performed. In addition, each knee is imaged in lateral and axial patella views. FINDINGS: Right: Normal bony mineralization. No fracture, dislocation, or destructive process. No definite joint narrowing. No erosive change or chondrocalcinosis or subchondral sclerosis. No effusion. Hoffa's fat pad appears normal. Axial view patella shows no lateralization or tilting. Left: Normal bony mineralization. No fracture, dislocation, or destructive process. No definite joint narrowing. No erosive change or chondrocalcinosis or subchondral sclerosis. No effusion. Hoffa's fat pad appears normal. Punctate soft tissue mineralization overlies the mid patellar tendon on lateral view. Axial view patella shows no lateralization or tilting. XR/XR knee LT 2V IMPRESSION: -No focal joint narrowing or subchondral sclerosis. No erosive change. -No suprapatellar effusion. -No lateralization or tilting patella.
--- NOTE | ~2021-09-19 | XR_ITS ---
EXAMINATION: XI KNEES, STANDING AP XR KNEE, RIGHT XR KNEE, LEFT CLINICAL INFORMATION: Knee pain, M25.569 COMPARISON: Standing AP knees and right knee radiographs 01/15/2017. TECHNIQUE: Standing AP view of both knees is performed. In addition, each knee is imaged in lateral and axial patella views. FINDINGS: Right: Normal bony mineralization. No fracture, dislocation, or destructive process. No definite joint narrowing. No erosive change or chondrocalcinosis or subchondral sclerosis. No effusion. Hoffa's fat pad appears normal. Axial view patella shows no lateralization or tilting. Left: Normal bony mineralization. No fracture, dislocation, or destructive process. No definite joint narrowing. No erosive change or chondrocalcinosis or subchondral sclerosis. No effusion. Hoffa's fat pad appears normal. Punctate soft tissue mineralization overlies the mid patellar tendon on lateral view. Axial view patella shows no lateralization or tilting. XR/XR knee RT 2V IMPRESSION: -No focal joint narrowing or subchondral sclerosis. No erosive change. -No suprapatellar effusion. -No lateralization or tilting patella.
== END 2021-09-19 06:47 | disposition home or self-care (01) ==
LOC: HO.HOSX 06:46
PROVIDERS: Visit Provider Orthopaedic Surgery
DX: M06.9 Rheumatoid arthritis, unspecified (principal); M25.361 Other instability, right knee; M25.362 Other instability, left knee
CPT/HCPCS: 73560; 73565; 99202

== ENCOUNTER 2021-10-02 12:39 | Emergency (ER) | payer OTHER, SELFPAY ==
--- NOTE | ~2021-10-02 | XR_ITS ---
EXAMINATION: XR CHEST CLINICAL INFORMATION: Upper respiratory tract infection COMPARISON: Previous x-ray January 2021 TECHNIQUE: Frontal view of the chest was obtained. FINDINGS: The cardiac and mediastinal contours are normal. The lungs are clear. There is no pleural effusion or pneumothorax. There are new radiopaque densities projecting over the soft tissues right lateral lower chest wall and over the skin presumably representing something on the patient's clothing. Clinical correlation recommended. XR/XR chest 1V IMPRESSION: No evidence of pneumonia. New radiopaque densities project over the soft tissues of the right lateral lower chest wall and over the skin. These presumably represent something on the patient's clothing. Clinical correlation recommended.
[2021-10-02 13:32] VITALS: BP 128/83; PULSE 70; RESP 18; TEMP 36; O2SAT 100; BMI 23.2
[2021-10-02 13:50] LABS: MANUAL DIFF FLAG NO
[2021-10-02 13:52] LABS: Basophils Percent Auto 0.3 % (0-2); Eosinophils Absolute Auto 0.1 X10*3/uL (0.0-0.4); Hematocrit 45.1 % (37.0-47.0); Hemoglobin 15.6 g/dl (12.0-16.0); Imm Gran Abs Auto 0.02 X10*3/uL (0.00-0.03); Imm Gran Pct Auto 0.2 % (0.0-0.4); Lymphocytes Absolute Auto 1.5 X10*3/uL (1.2-4.9); Lymphocytes Percent Auto 15.9 % (20-40); Mean Corpuscular HGB Conc 34.6 g/dl (31.0-35.0); Mean Corpuscular Volume 92.6 fL (80.0-98.0); Mean Platelet Volume 11.3 fL (9.4-12.3); Monocytes Absolute Auto 0.7 X10*3/uL (0.1-1.2); Monocytes Percent Auto 7.5 % (2-11); Neutrophils Percent Auto 75.1 % (45-73); Platelet Count 268 X10*3/uL (160-400); Red Blood Count 4.87 X10*6/uL (4.20-5.50); Red Cell Distribution Width 12.2 % (11.0-16.0); White Blood Count 9.3 X10*3/uL (4.8-10.8)
[2021-10-02 14:10] LABS: COVID-19 Test Negative (Negative); IDNOW Serial# 55D5AD1C
[2021-10-02 14:12] LABS: Influenza A Negative (Negative); Influenza B2 Negative (Negative)
[2021-10-02 14:42] LABS: Alanine Aminotransferase 14 U/L (0-31); Albumin Level 4.4 g/dL (3.5-5.0); Alkaline Phosphatase 59 U/L (39-117); Anion Gap 10 (12-20); Aspartate Amino Transferase 13 U/L (5-31); Bilirubin Total 2.2 mg/dL (0.0-1.0); Blood Urea Nitrogen 12 mg/dL (9-16); Calcium 10.1 mg/dL (8.4-10.2); Carbon Dioxide 26 mmol/L (22-29); Chloride 108 mmol/L (96-108); Creatinine Clr Calc Pharmacy 69.7; Estimated Glomerular Filt Rate > 60; Glucose Random 55 mg/dL (60-115); Potassium 4.8 mmol/L (3.3-5.1); Sodium 139 mmol/L (135-145); Total Protein 7.8 g/dL (6.5-8.0)
--- NOTE | 2021-10-02 14:45 | PC.NURSE ---
critical glucose recieved from lab. patient provided fernanda and JAJA at this time and updated on lab result. will recheck patient's glucose in 15 mins
[2021-10-02 15:29] LABS: Glucose, Whole Blood 142 mg/dL (60-115)
--- NOTE | 2021-10-02 17:13 | ED.URI ---
HPI - URI/Sore Throat General Chief Complaint: Upper Respiratory Symptoms Stated Complaint: allergies dry cough chest congestion Time Seen by Provider: 10/02/21 17:12 Source: patient Mode of arrival: ambulatory Limitations: no limitations History of Present Illness HPI Narrative: 41 y/o female with history of rheumatoid arthritis, asthma, anxiety, depressions, hx UTI who presents to the ER for evaluation of severe seasonal allergy symptoms. She reports her PCP sent her to the ER for an inhaler. She states when her seasonal allergies flare up she tends to need an inhaler. Because she has not been seen for over a year her doctor was unable to call one in. She denies any wheezing or SOB. Her main complaint today is her loss of voice. Last night she had post nasal drip, dry cough and ear pain. She denies nasal congestion, runny nose or watery eyes. She has been taking Darlene for her allergies. MD elicited complaint: rhinorrhea Pertinent past history: asthma Onset (ago): day(s) (2) Consistency: progressively worsening Severity: moderate Description of mucous: clear Able to tolerate fluids by mouth: Yes Exacerbating factors: speaking Relieving factors: nothing Associated symptoms: cough Treatments prior to arrival: none Related Data Home Medications Medication Instructions Recorded Confirmed fluoxetine 20 mg capsule 20 mg PO QAM 09/19/21 meclizine 12.5 mg tablet 12.5 mg PO Q8H PRN 09/19/21 valacyclovir 1 gram tablet 1,000 mg PO DAILY PRN 09/19/21 Previous Rx's Medication Instructions Recorded diazepam 5 mg tablet (Valium) 5 mg PO TID PRN #10 tab 06/18/20 naproxen 500 mg tablet 500 mg PO BID PRN #10 tab 06/18/20 cyclobenzaprine 10 mg tablet 10 mg PO TID PRN #20 tab 07/23/20 benzonatate 100 mg capsule 100 mg PO TID PRN #10 cap 01/23/21 (Laron Betancourt) ketorolac 10 mg tablet 10 mg PO TID PRN 5 Days #10 tab 07/18/21 tramadol 50 mg tablet 50 mg PO BID PRN #7 tab 07/18/21 albuterol sulfate 90 mcg/actuation 2 inh INHALATION Q6H PRN #6.7 g 10/02/21 aerosol inhaler fluticasone propionate 50 2 spray INTRANASAL DAILY #16 g 10/02/21 mcg/actuation nasal spray,suspension (Flonase Allergy Relief) Allergies Allergy/AdvReac Type Severity Reaction Status Date / Time No Known Allergies Allergy Verified 07/17/21 21:37 Review of Systems Review of Systems: Constitutional: No Fever, No Chills ENT/Mouth: No sore throat, No Rhinorrhea, No Swallowing Difficulty, +voice loss Cardiovascular: No Chest Pain, No SOB Respiratory: + Cough, No Sputum, No Wheezing, No dyspnea Gastrointestinal: No Nausea, No Vomiting, No Diarrhea, No abdominal Pain Musculoskeletal: No joint pain, No Myalgias Skin: No Skin Lesions, No rash Neuro: No Weakness, No Numbness, No Dizziness, No Headache Psych: No Anxiety/Panic, No Depression Heme/Lymph: No Bruising, No Lymphadenopathy PMFSH Past Medical History Medical History Asthma COVID-19 Migraine Ovarian cyst Surgical History Hx of tubal ligation Social History Social History (Updated 09/19/21 @ 09:30 by Zita Alamo CMA) Alcohol intake: never Patient Tobacco Use Status: Never used Tobacco Advance Directives: No Advance Directives Information Provided: No 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 Oriented X3. No acute distress. Eyes: Pupils equal, round and reactive to light. ENT: Pharynx with mild generalized erythema, no tonsillar swelling or exudate, uvula midline. Normal inspection the bilateral tympanic membranes. Nasal turbinates are erythematous with clear nasal discharge. Neck: Normal inspection. Neck supple. No LAD CVS: Normal heart rate and rhythm. Pulses normal. Respiratory: No respiratory distress. Breath sounds normal. Very harsh voice. Skin: Skin warm and dry. Normal skin color. Normal skin turgor. No rashes. Extremities: Normal inspection x4, normal range of motion. Neuro: Oriented X 3. Grossly normal, nonfocal Course Course Course Narrative: 41-year-old female with history of RA, asthma, depression, anxiety, migraines, UTI, ovarian cysts who presents to the ER for evaluation allergy symptoms. She reports she lost her voice but does not have a sore throat. She has postnasal drip and some mild coughing along with some ear pain. She has been taking Darlene and sent to the ER for evaluation of a possible bronchodilator. On examination today she does not have any wheezing. She states when she gets sick she sometimes needs an inhaler to help her breathe. PCP unable to fill. Exam and clinical presentation are consistent with laryngitis, most likely viral in etiology. COVID, flu, chest x-ray and lab workup is pending. Reevaluation(s) Reevaluation #1: Patient is negative for COVID, negative for flu. Chest x-ray does not show any infiltrate. Her lab work did show a hypoglycemia, glucose 55. Critical result was obtained by staff in the ER while patient was in the [facility] waiting room. She was approached in told of her low blood sugar, she denied any symptoms at the time. She was given p.o. and ate and drank. She had not eaten or drinking anything in several hours. Repeat glucose 140. She denies any history of diabetes or history of hypoglycemia in the past. Question lab error. Reassuring that she was asymptomatic at the time. Repeat glucose again was in normal range 92. She is stable for discharge. Will give nasal steroid as well as albuterol inhaler p.r.n.. Patient agrees with plan will follow-up with her PCP. MDM - URI/Sore Throat Lab Data Result diagrams: 10/02/21 13:43 10/02/21 13:43 Labs: Lab Results 10/02/21 10/02/21 10/02/21 Range/Units 13:43 13:43 13:45 WBC 9.3 (4.8-10.8) X10*3/uL RBC 4.87 (4.20-5.50) X10*6/uL Hgb 15.6 (12.0-16.0) g/dl Hct 45.1 (37.0-47.0) % MCV 92.6 (80.0-98.0) fL MCH 32.0 (27.0-33.0) pg MCHC 34.6 (31.0-35.0) g/dl RDW 12.2 (11.0-16.0) % Plt Count 268 (160-400) X10*3/uL MPV 11.3 (9.4-12.3) fL Immature Gran % (Auto) 0.2 (0.0-0.4) % Neut % (Auto) 75.1 H (45-73) % Lymph % (Auto) 15.9 L (20-40) % [place] % (Auto) 7.5 (2-11) % Eos % (Auto) 1.0 (0-4) % Baso % (Auto) 0.3 (0-2) % Lymph # (Auto) 1.5 (1.2-4.9) X10*3/uL [place] # (Auto) 0.7 (0.1-1.2) X10*3/uL Eos # (Auto) 0.1 (0.0-0.4) X10*3/uL Baso # (Auto) 0.0 (0.0-0.2) X10*3/uL Abs Immat Gran (auto) 0.02 (0.00-0.03) X10*3/uL Absolute Neuts (auto) 7.0 (2.0-8.3) x10*3/uL Absolute Nucleated RBC 0.000 (0.0-0.012) X10*3/uL Nucleated RBC % (auto) 0.0 (0.0-0.2) /100WBC Sodium 139 (135-145) mmol/L Potassium 4.8 (3.3-5.1) mmol/L Chloride 108 (96-108) mmol/L Carbon Dioxide 26 (22-29) mmol/L Anion Gap 10 L (12-20) BUN 12 (9-16) mg/dL Creatinine 0.80 (0.5-1.4) mg/dL Estim Creat Clear Calc 69.7 Estimated GFR > 60 POC Glucose (60-115) mg/dL Random Glucose 55 L* (60-115) mg/dL Calcium 10.1 (8.4-10.2) mg/dL Total Bilirubin 2.2 H (0.0-1.0) mg/dL AST 13 (5-31) U/L ALT 14 (0-31) U/L Alkaline Phosphatase 59 (39-117) U/L Total Protein 7.8 (6.5-8.0) g/dL Albumin 4.4 (3.5-5.0) g/dL COVID-19 (BELL) (Negative) COVID-19 Clin Com Influenza Type A (SHIRA) Negative (Negative) Influenza Type B (SHIRA) Negative (Negative) Influenza A & B Note See Note 10/02/21 10/02/21 10/02/21 Range/Units 13:45 15:24 17:28 WBC (4.8-10.8) X10*3/uL RBC (4.20-5.50) X10*6/uL Hgb (12.0-16.0) g/dl Hct (37.0-47.0) % MCV (80.0-98.0) fL MCH (27.0-33.0) pg MCHC (31.0-35.0) g/dl RDW (11.0-16.0) % Plt Count (160-400) X10*3/uL MPV (9.4-12.3) fL Immature Gran % (Auto) (0.0-0.4) % Neut % (Auto) (45-73) % Lymph % (Auto) (20-40) % [place] % (Auto) (2-11) % Eos % (Auto) (0-4) % Baso % (Auto) (0-2) % Lymph # (Auto) (1.2-4.9) X10*3/uL [place] # (Auto) (0.1-1.2) X10*3/uL Eos # (Auto) (0.0-0.4) X10*3/uL Baso # (Auto) (0.0-0.2) X10*3/uL Abs Immat Gran (auto) (0.00-0.03) X10*3/uL Absolute Neuts (auto) (2.0-8.3) x10*3/uL Absolute Nucleated RBC (0.0-0.012) X10*3/uL Nucleated RBC % (auto) (0.0-0.2) /100WBC Sodium (135-145) mmol/L Potassium (3.3-5.1) mmol/L Chloride (96-108) mmol/L Carbon Dioxide (22-29) mmol/L Anion Gap (12-20) BUN (9-16) mg/dL Creatinine (0.5-1.4) mg/dL Estim Creat Clear Calc Estimated GFR POC Glucose 142 H 92 (60-115) mg/dL Random Glucose (60-115) mg/dL Calcium (8.4-10.2) mg/dL Total Bilirubin (0.0-1.0) mg/dL AST (5-31) U/L ALT (0-31) U/L Alkaline Phosphatase (39-117) U/L Total Protein (6.5-8.0) g/dL Albumin (3.5-5.0) g/dL COVID-19 (BELL) Negative (Negative) COVID-19 Clin Com See Note Influenza Type A (SHIRA) (Negative) Influenza Type B (SHIRA) (Negative) Influenza A & B Note Critical Care Time Critical Care Time Critical Care Time: No Discharge Plan Discharge Clinical Impression: Laryngitis Patient Disposition: Home, Self-Care Instructions: Laryngitis (ED) Additional Instructions: Your test today showed you are negative for COVID-19 and influenza. Your chest x-ray did not show any evidence of pneumonia. Recommend voice rest, minimi speaking for the next 24-48 hours. Use the prescribed nasal spray for your allergies and postnasal drip. Use warm salt water gargles several times per day. Rest and stay hydrated. Continue Darlene every day Follow up with your doctor If you develop new or worsening symptoms call 911 or come back to the ER for further evaluation. Prescriptions: New fluticasone propionate [Flonase Allergy Relief] 50 mcg/actuation spray,suspension 2 spray intranasal DAILY Qty: 16 0RF Rx Instructions: administer into each nostril albuterol sulfate 90 mcg/actuation HFA aerosol inhaler 2 inh inhalation Q6H PRN (Reason: shortness of breath or wheezing) Qty: 6.7 0RF No Action cyclobenzaprine 10 mg tablet 10 mg PO TID PRN (Reason: muscle pain or spasm) Qty: 20 0RF benzonatate [Tessalon Perles] 100 mg capsule 100 mg PO TID PRN (Reason: cough) Qty: 10 0RF diazepam [Valium] 5 mg tablet 5 mg PO TID PRN (Reason: muscle spasm) Qty: 10 0RF naproxen 500 mg tablet 500 mg PO BID PRN (Reason: pain) Qty: 10 0RF ketorolac 10 mg tablet 10 mg PO TID PRN (Reason: pain) 5 Days Qty: 10 0RF Rx Instructions: Do not use naproxen, ibuprofen. You may use tramadol or Tylenol if needed tramadol 50 mg tablet 50 mg PO BID PRN (Reason: pain) Qty: 7 0RF fluoxetine 20 mg capsule 20 mg PO QAM 0RF valacyclovir 1 gram tablet 1,000 mg PO DAILY PRN0RF meclizine 12.5 mg tablet 12.5 mg PO Q8H PRN (Reason: dizziness) 0RF Stand Alone Forms: Work/School Release
[2021-10-02 17:32] LABS: Glucose, Whole Blood 92 mg/dL (60-115)
== END 2021-10-02 17:45 | disposition home or self-care (01) ==
PROVIDERS: Emergency Provider Internal Medicine; PCP Internal Medicine
DX: J04.0 Acute laryngitis (principal); E16.2 Hypoglycemia, unspecified; J45.909 Unspecified asthma, uncomplicated; Z91.09 Other allergy status, other than to drugs and biological substances; Z20.822 Contact with and (suspected) exposure to COVID-19
CPT/HCPCS: 36415; 71045; 80053; 82947; 85025; 87502; 87635; 99282; 99283

== ENCOUNTER 2022-03-17 10:25 | Outpatient (REF) | payer OTHER, SELFPAY ==
--- NOTE | ~2022-03-17 | XR_ITS ---
EXAMINATION: RIGHT ANKLE. RIGHT FOOT. LEFT ANKLE. LEFT FOOT. RIGHT WRIST. LEFT WRIST. CLINICAL INFORMATION: Rheumatoid arthritis evaluation COMPARISON: None TECHNIQUE: 3 views right wrist. 3 views left wrist. 3 views left foot and left ankle. 3 views right foot and right ankle. FINDINGS: Right hand and wrist: Carpal alignment normal. No erosive change. No fracture, dislocation or destructive process. Left hand and wrist: Carpal alignment normal. No erosive change. No fracture, dislocation or destructive process. Left foot: No fracture, dislocation or destructive process or erosive change. Small plantar spur. Left ankle: Mortise intact. No fracture or destructive process or erosive change. Right foot: No fracture, dislocation or destructive process or erosive change. Tiny bone island distal tibia. Small plantar spur. Right ankle: Mortise intact. No fracture or destructive process. No erosive change. XR/XR hand wrist LT IMPRESSION: No erosive changes observed. No radiographic evidence for an inflammatory arthritis.
--- NOTE | ~2022-03-17 | XR_ITS ---
EXAMINATION: RIGHT ANKLE. RIGHT FOOT. LEFT ANKLE. LEFT FOOT. RIGHT WRIST. LEFT WRIST. CLINICAL INFORMATION: Rheumatoid arthritis evaluation COMPARISON: None TECHNIQUE: 3 views right wrist. 3 views left wrist. 3 views left foot and left ankle. 3 views right foot and right ankle. FINDINGS: Right hand and wrist: Carpal alignment normal. No erosive change. No fracture, dislocation or destructive process. Left hand and wrist: Carpal alignment normal. No erosive change. No fracture, dislocation or destructive process. Left foot: No fracture, dislocation or destructive process or erosive change. Small plantar spur. Left ankle: Mortise intact. No fracture or destructive process or erosive change. Right foot: No fracture, dislocation or destructive process or erosive change. Tiny bone island distal tibia. Small plantar spur. Right ankle: Mortise intact. No fracture or destructive process. No erosive change. XR/XR ankle RT min 3V IMPRESSION: No erosive changes observed. No radiographic evidence for an inflammatory arthritis.
--- NOTE | ~2022-03-17 | XR_ITS ---
EXAMINATION: RIGHT ANKLE. RIGHT FOOT. LEFT ANKLE. LEFT FOOT. RIGHT WRIST. LEFT WRIST. CLINICAL INFORMATION: Rheumatoid arthritis evaluation COMPARISON: None TECHNIQUE: 3 views right wrist. 3 views left wrist. 3 views left foot and left ankle. 3 views right foot and right ankle. FINDINGS: Right hand and wrist: Carpal alignment normal. No erosive change. No fracture, dislocation or destructive process. Left hand and wrist: Carpal alignment normal. No erosive change. No fracture, dislocation or destructive process. Left foot: No fracture, dislocation or destructive process or erosive change. Small plantar spur. Left ankle: Mortise intact. No fracture or destructive process or erosive change. Right foot: No fracture, dislocation or destructive process or erosive change. Tiny bone island distal tibia. Small plantar spur. Right ankle: Mortise intact. No fracture or destructive process. No erosive change. XR/XR foot RT min 3V IMPRESSION: No erosive changes observed. No radiographic evidence for an inflammatory arthritis.
--- NOTE | ~2022-03-17 | XR_ITS ---
EXAMINATION: RIGHT ANKLE. RIGHT FOOT. LEFT ANKLE. LEFT FOOT. RIGHT WRIST. LEFT WRIST. CLINICAL INFORMATION: Rheumatoid arthritis evaluation COMPARISON: None TECHNIQUE: 3 views right wrist. 3 views left wrist. 3 views left foot and left ankle. 3 views right foot and right ankle. FINDINGS: Right hand and wrist: Carpal alignment normal. No erosive change. No fracture, dislocation or destructive process. Left hand and wrist: Carpal alignment normal. No erosive change. No fracture, dislocation or destructive process. Left foot: No fracture, dislocation or destructive process or erosive change. Small plantar spur. Left ankle: Mortise intact. No fracture or destructive process or erosive change. Right foot: No fracture, dislocation or destructive process or erosive change. Tiny bone island distal tibia. Small plantar spur. Right ankle: Mortise intact. No fracture or destructive process. No erosive change. XR/XR foot LT min 3V IMPRESSION: No erosive changes observed. No radiographic evidence for an inflammatory arthritis.
--- NOTE | ~2022-03-17 | XR_ITS ---
EXAMINATION: RIGHT ANKLE. RIGHT FOOT. LEFT ANKLE. LEFT FOOT. RIGHT WRIST. LEFT WRIST. CLINICAL INFORMATION: Rheumatoid arthritis evaluation COMPARISON: None TECHNIQUE: 3 views right wrist. 3 views left wrist. 3 views left foot and left ankle. 3 views right foot and right ankle. FINDINGS: Right hand and wrist: Carpal alignment normal. No erosive change. No fracture, dislocation or destructive process. Left hand and wrist: Carpal alignment normal. No erosive change. No fracture, dislocation or destructive process. Left foot: No fracture, dislocation or destructive process or erosive change. Small plantar spur. Left ankle: Mortise intact. No fracture or destructive process or erosive change. Right foot: No fracture, dislocation or destructive process or erosive change. Tiny bone island distal tibia. Small plantar spur. Right ankle: Mortise intact. No fracture or destructive process. No erosive change. XR/XR ankle LT min 3V IMPRESSION: No erosive changes observed. No radiographic evidence for an inflammatory arthritis.
--- NOTE | ~2022-03-17 | XR_ITS ---
EXAMINATION: RIGHT ANKLE. RIGHT FOOT. LEFT ANKLE. LEFT FOOT. RIGHT WRIST. LEFT WRIST. CLINICAL INFORMATION: Rheumatoid arthritis evaluation COMPARISON: None TECHNIQUE: 3 views right wrist. 3 views left wrist. 3 views left foot and left ankle. 3 views right foot and right ankle. FINDINGS: Right hand and wrist: Carpal alignment normal. No erosive change. No fracture, dislocation or destructive process. Left hand and wrist: Carpal alignment normal. No erosive change. No fracture, dislocation or destructive process. Left foot: No fracture, dislocation or destructive process or erosive change. Small plantar spur. Left ankle: Mortise intact. No fracture or destructive process or erosive change. Right foot: No fracture, dislocation or destructive process or erosive change. Tiny bone island distal tibia. Small plantar spur. Right ankle: Mortise intact. No fracture or destructive process. No erosive change. XR/XR hand wrist RT IMPRESSION: No erosive changes observed. No radiographic evidence for an inflammatory arthritis.
[2022-03-17 11:05] LABS: MANUAL DIFF FLAG NO
[2022-03-17 12:16] LABS: Basophils Percent Auto 0.4 % (0-2); Eosinophils Absolute Auto 0.1 X10*3/uL (0.0-0.4); Eosinophils Percent Auto 1.6 % (0-4); Hematocrit 41.6 % (37.0-47.0); Hemoglobin 14.2 g/dl (12.0-16.0); Imm Gran Abs Auto 0.02 X10*3/uL (0.00-0.03); Imm Gran Pct Auto 0.3 % (0.0-0.4); Lymphocytes Absolute Auto 2.2 X10*3/uL (1.2-4.9); Lymphocytes Percent Auto 29.1 % (20-40); Mean Corpuscular HGB Conc 34.1 g/dl (31.0-35.0); Mean Corpuscular Hemoglobin 31.2 pg (27.0-33.0); Mean Corpuscular Volume 91.4 fL (80.0-98.0); Mean Platelet Volume 11.9 fL (9.4-12.3); Monocytes Absolute Auto 0.5 X10*3/uL (0.1-1.2); Monocytes Percent Auto 6.9 % (2-11); Neutrophils Absolute Auto 4.6 x10*3/uL (2.0-8.3); Neutrophils Percent Auto 61.7 % (45-73); Platelet Count 242 X10*3/uL (160-400); Red Blood Count 4.55 X10*6/uL (4.20-5.50); Red Cell Distribution Width 12.3 % (11.0-16.0); White Blood Count 7.4 X10*3/uL (4.8-10.8)
[2022-03-17 12:26] LABS: Estimated Average Glucose 97 mg/dL
[2022-03-17 12:32] LABS: Appearance Urine Clear; Color Urine Yellow; Glucose Urine UA Negative (Negative); Leukocyte Esterase Urine Negative (Negative); Nitrite Urine Negative (Negative); PH 5.5 (5.0-9.0); Specific Gravity - Urine 1.025 (1.005-1.025); Urine Blood Negative (Negative); Urine Ketones Negative (Negative); Urine Protein Negative (Neg-Trace)
[2022-03-17 12:40] LABS: Bacteria Urine None Seen (None Seen); Hyaline Casts Urine 0-2 /LPF (0-2); RBC Urine 0-2 /HPF (0-2); Squamous Epithelial Cell Urine 0-2 /HPF (0-2); WBC Urine 0-5 /HPF (0-5)
[2022-03-17 12:51] LABS: Alanine Aminotransferase 14 U/L (0-31); Albumin Level 4.2 g/dL (3.5-5.0); Alkaline Phosphatase 54 U/L (39-117); Anion Gap 15 (12-20); Aspartate Amino Transferase 13 U/L (5-31); Bilirubin Total 1.7 mg/dL (0.0-1.0); Blood Urea Nitrogen 10 mg/dL (9-16); C Reactive Protein 0.13 mg/dL (< or = 0.50); Calcium 9.2 mg/dL (8.4-10.2); Carbon Dioxide 20 mmol/L (22-29); Chloride 106 mmol/L (96-108); Estimated Glomerular Filt Rate > 60; Glucose Random 76 mg/dL (60-115); Potassium 3.9 mmol/L (3.3-5.1); Sodium 137 mmol/L (135-145); Total Protein 7.3 g/dL (6.5-8.0)
[2022-03-17 13:02] LABS: TSH reflex Free T4 2.24 uIU/mL (0.32-4.0)
[2022-03-17 13:06] LABS: Erythrocyte Sedimentation Rate 7 MM/HR (0-20)
[2022-03-17 13:25] LABS: Creatinine Urine 172.79 mg/dL; Protein/Creatinine Ratio, Ur 0.05 (<0.2); Total Protein Urine Random 9 mg/dL (<12)
[2022-03-20 09:18] LABS: HBS Num1 265.56 mIU/mL (0-7.99); HBc Num1 0.08 S/CO (0.00-0.79); HBsAGNum1 0.21 S/CO (0.00-0.99); HIV AB/AG Nonreactive (Nonreactive); HIV Num 1 0.07 S/CO (0.00-0.99); Hepatitis B Core Antibody Nonreactive (Nonreactive); Hepatitis B Surface Antigen Negative (Negative); ~HepC Num1 0.09 S/CO (0.00-0.79); ~Hepatitis B Surface Antibody REACTIVE (Nonreactive); ~Hepatitis C Antibody Nonreactive (Nonreactive)
[2022-03-20 12:56] LABS: Thyroid Peroxidase Antibodies 2 IU/mL (<9)
[2022-03-20 13:33] LABS: Anti DNA DS Antibody <1 IU/mL; Antibody to SS-A Antigen <1.0 NEG AI (<1.0 NEG); Antibody to SS-B Antigen <1.0 NEG AI (<1.0 NEG); SM/Ribonucleoprotein Ab <1.0 NEG AI (<1.0 NEG); Smith Protein <1.0 NEG AI (<1.0 NEG)
[2022-03-20 18:32] LABS: TS Negative Control Passed; TS Panel A 3; TS Panel B 1; TS Positive Control Passed; TSpotTB Negative (Negative)
[2022-03-20 21:35] LABS: Lyme Abs Screen <0.90 index
[2022-03-20 21:57] LABS: Cardiolipin IgG Ab <2.0 GPL-U/mL; Cardiolipin IgM Ab 3.5 MPL-U/mL
[2022-03-20 22:32] LABS: Thyroglobulin Antibodies <1 IU/mL (< or = 1)
[2022-03-21 13:12] LABS: Anti Nuclear Antibody Screen NEGATIVE (NEGATIVE)
[2022-03-21 13:17] LABS: Complement C3 150 mg/dL (83-193)
[2022-03-21 18:11] LABS: Prot Elec - Albumin 4.1 g/dL (3.8-4.8); Prot Elec - Alpha1 0.2 g/dL (0.2-0.3); Prot Elec - Alpha2 0.6 g/dL (0.5-0.9); Prot Elec - Beta 1 0.4 g/dL (0.4-0.6); Prot Elec - Beta 2 0.3 g/dL (0.2-0.5); Prot Elec - Gamma 1.4 g/dL (0.8-1.7)
[2022-03-21 22:17] LABS: PTT (LAC) Screen 33 sec (<=40)
[2022-03-22 08:05] LABS: Hepatitis A Antibody IgM 0.17 Index (0-0.79); ~Hepatitis A Antibody IgM Nonreactive (Nonreactive)
[2022-03-22 12:52] LABS: Beta-2 Glycoprotein IgA <2.0 U/mL (<20.0); Beta-2 Glycoprotein IgG <2.0 U/mL (<20.0); Beta-2 Glycoprotein IgM 7.1 U/mL (<20.0)
[2022-03-22 14:31] LABS: DNAds, Crithidia Antibody Negative (Negative)
[2022-03-22 15:57] LABS: IgA 136 mg/dL (47-310); IgG 1580 mg/dL (600-1640); IgM 276 mg/dL (50-300)
== END 2022-03-17 10:26 | disposition home or self-care (01) ==
LOC: HO.XRAY 10:25
PROVIDERS: PCP Internal Medicine; Visit Provider Student in an Organized Health Care Education/Training Program
DX: M06.9 Rheumatoid arthritis, unspecified (principal); R76.8 Other specified abnormal immunological findings in serum; E66.9 Obesity, unspecified; Z11.7 Encounter for testing for latent tuberculosis infection; Z11.59 Encounter for screening for other viral diseases
CPT/HCPCS: 36415; 73110; 73130; 73610; 73630; 80053; 81001; 82784; 83036; 84156; 84165; 84443; 85025; 85597; 85613; 85652; 85730; 86038; 86039; 86140; 86146; 86147; 86160; 86225; 86235; 86255; 86334; 86376; 86481; 86617; 86618; 86704; 86706; 86709; 86800; 86803; 87340; 87389; 99202

== ENCOUNTER → 2022-04-19 10:34 | Outpatient (BNVA) | payer OTHER, SELFPAY | PROVIDERS: PCP Internal Medicine; Referring Provider Internal Medicine; Visit Provider Student in an Organized Health Care Education/Training Program | DX: R76.8 Other specified abnormal immunological findings in serum (principal); E80.6 Other disorders of bilirubin metabolism; M65.4 Radial styloid tenosynovitis [de Quervain]; M51.36 Other intervertebral disc degeneration, lumbar region; M62.830 Muscle spasm of back | CPT/HCPCS: 99212 ==

== ENCOUNTER 2022-04-21 01:31 | Emergency (ER) | payer OTHER, SELFPAY ==
[2022-04-21 01:44] VITALS: BP 130/75; PULSE 90; RESP 20; TEMP 36.6; O2SAT 98; BMI 33.3
[2022-04-21 01:58] LABS: Basophils Percent Auto 0.2 % (0-2); Eosinophils Absolute Auto 0.1 X10*3/uL (0.0-0.4); Eosinophils Percent Auto 0.8 % (0-4); Hemoglobin 14.8 g/dl (12.0-16.0); Imm Gran Abs Auto 0.03 X10*3/uL (0.00-0.03); Imm Gran Pct Auto 0.3 % (0.0-0.4); Lymphocytes Absolute Auto 0.6 X10*3/uL (1.2-4.9); Lymphocytes Percent Auto 6.1 % (20-40); MANUAL DIFF FLAG NO; Mean Corpuscular HGB Conc 35.2 g/dl (31.0-35.0); Mean Corpuscular Hemoglobin 31.2 pg (27.0-33.0); Mean Corpuscular Volume 88.4 fL (80.0-98.0); Mean Platelet Volume 11.1 fL (9.4-12.3); Monocytes Absolute Auto 0.5 X10*3/uL (0.1-1.2); Monocytes Percent Auto 5.1 % (2-11); Neutrophils Absolute Auto 8.8 x10*3/uL (2.0-8.3); Neutrophils Percent Auto 87.5 % (45-73); Platelet Count 219 X10*3/uL (160-400); Red Blood Count 4.75 X10*6/uL (4.20-5.50); Red Cell Distribution Width 12.1 % (11.0-16.0); White Blood Count 10.1 X10*3/uL (4.8-10.8)
[2022-04-21 02:14] LABS: Anion Gap 11 (12-20); Blood Urea Nitrogen 12 mg/dL (9-16); Calcium 9.4 mg/dL (8.4-10.2); Carbon Dioxide 20 mmol/L (22-29); Chloride 106 mmol/L (96-108); Creatinine Clr Calc Pharmacy 86.4; Estimated Glomerular Filt Rate > 60; Glucose Random 114 mg/dL (60-115); Potassium 3.7 mmol/L (3.3-5.1); Sodium 133 mmol/L (135-145)
[2022-04-21 02:25] VITALS: BP 119/67; PULSE 96; RESP 16; TEMP 36.6; O2SAT 98
[2022-04-21 02:33] LABS: Appearance Urine Clear; Color Urine Yellow; Glucose Urine UA Negative (Negative); Leukocyte Esterase Urine Small (1+) (Negative); Nitrite Urine Negative (Negative); Specific Gravity - Urine >= 1.030 (1.005-1.025); UMIC TRIGGER UACC YES; Urine Blood Negative (Negative); Urine Ketones Trace mg/dL (Negative); Urine Protein Negative (Neg-Trace)
[2022-04-21 02:34] LABS: UPreg QC Valid YES; Urine Pregnancy NEGATIVE (NEGATIVE)
[2022-04-21 02:37] LABS: Bacteria Urine None Seen (None Seen); Hyaline Casts Urine 0-2 /LPF (0-2); RBC Urine 0-2 /HPF (0-2); UACC Culture Trigger YES
[2022-04-21] MEDS: Ondansetron ODT 4 MG TAB.RAPDIS TRANSLINGU (02:47)
[2022-04-21] MEDS: Ibuprofen 600 MG TABLET PO (02:47)
--- NOTE | 2022-04-21 03:05 | ED_ITS ---
HPI - Female Genitourinary General Chief complaint: Urogenital-Female Stated complaint: UTI Time Seen by Provider: 04/21/22 02:19 Mode of arrival: ambulatory Limitations: no limitations History of Present Illness HPI Narrative: Patient having cold symptoms for last 2- 3 days body aches back pain had urine tested at doctor's office positive for infection started on antibiotic yesterday patient does not have any dysuria has slight frequency early today been coughing with low back pain no fever no chills no shortness of breath Related Data Home Medications Medication Instructions Recorded Confirmed fluoxetine 20 mg capsule 20 mg PO QAM 09/19/21 valacyclovir 1 gram tablet 1,000 mg PO DAILY PRN 09/19/21 amitriptyline 25 mg tablet 25 mg PO BEDTIME 03/17/22 nxhmalzrhp-yxbqbofjzdkoy-etugmelf 1 tab PO Q8H PRN 03/17/22 50 mg-325 mg-40 mg tablet cholecalciferol (vitamin D3) 1,250 1,250 mcg PO QWEEK 03/17/22 mcg (50,000 unit) capsule cyanocobalamin (vitamin B-12) 500 500 mcg PO DAILY 03/17/22 mcg tablet epinephrine 0.3 mg/0.3 mL 0.3 mg IM ONCE PRN 03/17/22 injection, auto-injector fexofenadine 180 mg tablet 180 mg PO DAILY 03/17/22 topiramate 50 mg tablet 50 mg PO DAILY 03/17/22 Previous Rx's Medication Instructions Recorded albuterol sulfate 90 mcg/actuation 2 inh inhalation Q6H PRN shortness 10/02/21 aerosol inhaler of breath or wheezing #6.7 grams fluticasone propionate 50 2 spray intranasal DAILY #16 grams 10/02/21 mcg/actuation nasal spray,suspension (Flonase Allergy Relief) diclofenac sodium 1 % topical gel 4 g topical QID #100 grams 03/17/22 (Voltaren Arthritis Pain) thumb spica #2 ea 03/17/22 benzonatate 200 mg capsule 200 mg PO TID PRN cough #30 caps 04/21/22 ibuprofen 600 mg tablet 600 mg PO Q6H PRN fever or pain 04/21/22 #30 tabs Allergies Allergy/AdvReac Type Severity Reaction Status Date / Time prednisone Allergy Intermediate HEART Verified 04/21/22 01:49 RACING benzoyl peroxide AdvReac Unknown Rash Verified 04/21/22 01:49 [From Benzamycin] erythromycin base AdvReac Unknown Rash Verified 04/21/22 01:49 [From Benzamycin] SEAFOOD Allergy Intermediate TONGUE Uncoded 04/21/22 01:49 SWELLING Review of Systems Review of Systems: Yes all other systems are reviewed and are negative [facility] Past Medical History Medical History Asthma COVID-19 Migraine Ovarian cyst Rheumatoid arthritis Surgical History History of 2 sections History of removal of ovarian cyst Hx of arthroscopic knee surgery Hx of cholecystectomy Hx of tubal ligation S/P fine needle aspiration Family History Family History Father Hypertension Arthritis Hypercholesteremia Paternal Grandfather Arthritis Paternal Grandmother Arthritis Brother Thyroid disease Seizures Other Diabetes Social History Social History Alcohol intake: current Alcohol intake frequency: does not drink Patient Tobacco Use Status: Never used Tobacco Smoked in Last 30 Days: No Use of substances other than those prescribed or required for medical reasons: No Advance Directives: No Advance Directives Information Provided: Yes Current occupational status: employed 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 Oriented X3. No acute distress. ENT: Pharynx normal. Oral Mucosa moist Neck: Normal inspection. Neck supple. CVS: Normal heart rate and rhythm. Pulses normal. Respiratory: No respiratory distress. Equal air entry bilateral, no wheezing/rales/rhonchi abd: Soft nontender nondistended bowel sounds present no mass palpable no CVA tenderness Skin: Skin warm and dry. Normal skin color. Normal skin turgor. back: Diffuse tenderness in lumbar area no severe tenderness good range of movement Extremities: No lower extremity edema. Neuro: Oriented X 3. Medications Administered Discontinued Medications Generic Name Dose Route Start Last Admin Trade Name Jann PRN Reason Stop Dose Admin Ibuprofen 600 mg 04/21/22 02:32 04/21/22 02:47 Ibuprofen 600 Mg Tablet PO 04/21/22 02:33 600 mg ONCE ONE Administration Ondansetron HCl 4 mg 04/21/22 02:32 04/21/22 02:47 Ondansetron Odt 4 Mg Tab.Rapdis TRANSLINGU 04/21/22 02:33 4 mg ONCE ONE Administration MDM - Female Genitourinary MDM Narrative Medical decision making narrative: Patient here with diffuse pain in the back area urine showed few WBCs no bacteria but patient already took antibiotic today. Patient has influenza A positive likely the cause of the body aches discharge patient on ibuprofen Differential Diagnosis Differential diagnosis: Likely urinary tract infection Lab Data Attestation: I reviewed the patient's lab results. Result diagrams: 04/21/22 01:53 04/21/22 01:53 Labs: Lab Results 04/21/22 04/21/22 04/21/22 Range/Units 01:53 01:53 02:23 WBC 10.1 (4.8-10.8) X10*3/uL RBC 4.75 (4.20-5.50) X10*6/uL Hgb 14.8 (12.0-16.0) g/dl Hct 42.0 (37.0-47.0) % MCV 88.4 (80.0-98.0) fL MCH 31.2 (27.0-33.0) pg MCHC 35.2 H (31.0-35.0) g/dl RDW 12.1 (11.0-16.0) % Plt Count 219 (160-400) X10*3/uL MPV 11.1 (9.4-12.3) fL Immature Gran % (Auto) 0.3 (0.0-0.4) % Neut % (Auto) 87.5 H (45-73) % Lymph % (Auto) 6.1 L (20-40) % [place] % (Auto) 5.1 (2-11) % Eos % (Auto) 0.8 (0-4) % Baso % (Auto) 0.2 (0-2) % Lymph # (Auto) 0.6 L (1.2-4.9) X10*3/uL [place] # (Auto) 0.5 (0.1-1.2) X10*3/uL Eos # (Auto) 0.1 (0.0-0.4) X10*3/uL Baso # (Auto) 0.0 (0.0-0.2) X10*3/uL Abs Immat Gran (auto) 0.03 (0.00-0.03) X10*3/uL Absolute Neuts (auto) 8.8 H (2.0-8.3) x10*3/uL Absolute Nucleated RBC 0.000 (0.0-0.012) X10*3/uL Nucleated RBC % (auto) 0.0 (0.0-0.2) /100WBC Sodium 133 L (135-145) mmol/L Potassium 3.7 (3.3-5.1) mmol/L Chloride 106 (96-108) mmol/L Carbon Dioxide 20 L (22-29) mmol/L Anion Gap 11 L (12-20) BUN 12 (9-16) mg/dL Creatinine 0.77 (0.5-1.4) mg/dL Estim Creat Clear Calc 86.4 Estimated GFR > 60 Random Glucose 114 (60-115) mg/dL Calcium 9.4 (8.4-10.2) mg/dL Urine Color Yellow Urine Appearance Clear Urine pH 6.0 (5.0-9.0) Ur Specific [place] >= 1.030 H (1.005-1.025) Urine Protein Negative (Neg-Trace) mg/dL Urine Glucose (UA) Negative (Negative) mg/dL Urine Ketones Trace (Negative) mg/dL Urine Blood Negative (Negative) Urine Nitrite Negative (Negative) Ur Leukocyte Esterase Small (1+) H (Negative) Urine RBC 0-2 (0-2) /HPF Urine WBC 6-10 H (0-5) /HPF Ur Squamous Epith Cells 3-5 (0-2) /HPF Urine Bacteria None Seen (None Seen) Hyaline Casts 0-2 (0-2) /LPF Urine Test (NEGATIVE) Influenza Type A (PCR) (Negative) Influenza Type B (PCR) (Negative) RSV RNA Qual (PCR) (Negative) SARS-CoV-2 RNA (RT-PCR) (Negative) 04/21/22 04/21/22 Range/Units 02:23 02:43 WBC (4.8-10.8) X10*3/uL RBC (4.20-5.50) X10*6/uL Hgb (12.0-16.0) g/dl Hct (37.0-47.0) % MCV (80.0-98.0) fL MCH (27.0-33.0) pg MCHC (31.0-35.0) g/dl RDW (11.0-16.0) % Plt Count (160-400) X10*3/uL MPV (9.4-12.3) fL Immature Gran % (Auto) (0.0-0.4) % Neut % (Auto) (45-73) % Lymph % (Auto) (20-40) % [place] % (Auto) (2-11) % Eos % (Auto) (0-4) % Baso % (Auto) (0-2) % Lymph # (Auto) (1.2-4.9) X10*3/uL [place] # (Auto) (0.1-1.2) X10*3/uL Eos # (Auto) (0.0-0.4) X10*3/uL Baso # (Auto) (0.0-0.2) X10*3/uL Abs Immat Gran (auto) (0.00-0.03) X10*3/uL Absolute Neuts (auto) (2.0-8.3) x10*3/uL Absolute Nucleated RBC (0.0-0.012) X10*3/uL Nucleated RBC % (auto) (0.0-0.2) /100WBC Sodium (135-145) mmol/L Potassium (3.3-5.1) mmol/L Chloride (96-108) mmol/L Carbon Dioxide (22-29) mmol/L Anion Gap (12-20) BUN (9-16) mg/dL Creatinine (0.5-1.4) mg/dL Estim Creat Clear Calc Estimated GFR Random Glucose (60-115) mg/dL Calcium (8.4-10.2) mg/dL Urine Color Urine Appearance Urine pH (5.0-9.0) Ur Specific [place] (1.005-1.025) Urine Protein (Neg-Trace) mg/dL Urine Glucose (UA) (Negative) mg/dL Urine Ketones (Negative) mg/dL Urine Blood (Negative) Urine Nitrite (Negative) Ur Leukocyte Esterase (Negative) Urine RBC (0-2) /HPF Urine WBC (0-5) /HPF Ur Squamous Epith Cells (0-2) /HPF Urine Bacteria (None Seen) Hyaline Casts (0-2) /LPF Urine Test NEGATIVE (NEGATIVE) Influenza Type A (PCR) POSITIVE A (Negative) Influenza Type B (PCR) NEGATIVE (Negative) RSV RNA Qual (PCR) NEGATIVE (Negative) SARS-CoV-2 RNA (RT-PCR) NEGATIVE (Negative) Discharge Plan Discharge Clinical Impression: UTI (urinary tract infection), Influenza A Patient Disposition: Home, Self-Care Instructions: Urinary Tract Infection in Women (ED), Influenza (ED) Additional Instructions: Stay hydrated Tylenol/Motrin for pain Continue antibiotic as prescribed by your PCP for UTI Prescriptions: New benzonatate 200 mg capsule 200 mg PO TID PRN (Reason: cough) Qty: 30 0RF ibuprofen 600 mg tablet 600 mg PO Q6H PRN (Reason: fever or pain) Qty: 30 0RF No Action fluticasone propionate [Flonase Allergy Relief] 50 mcg/actuation spray,suspension 2 spray intranasal DAILY Qty: 16 0RF Rx Instructions: administer into each nostril albuterol sulfate 90 mcg/actuation HFA aerosol inhaler 2 inh inhalation Q6H PRN (Reason: shortness of breath or wheezing) Qty: 6.7 0RF fluoxetine 20 mg capsule 20 mg PO QAM valacyclovir 1 gram tablet 1,000 mg PO DAILY PRN topiramate 50 mg tablet 50 mg PO DAILY amitriptyline 25 mg tablet 25 mg PO BEDTIME izzpxjfxmf-nnldakgtjudyz-tych 50-325-40 mg tablet 1 tab PO Q8H PRN epinephrine 0.3 mg/0.3 mL auto-injector 0.3 mg IM ONCE PRN fexofenadine 180 mg tablet 180 mg PO DAILY cyanocobalamin (vitamin B-12) 500 mcg tablet 500 mcg PO DAILY cholecalciferol (vitamin D3) 1,250 mcg (50,000 unit) capsule 1,250 mcg PO QWEEK (DME) thumb spica See Rx Instructions .Route .MEDSUPPLY Qty: 2 0RF Rx Instructions: As directed use as much as possible throughout the day diclofenac sodium [Voltaren Arthritis Pain] 1 % gel 4 g topical QID Qty: 100 0RF Rx Instructions: apply to single knee, ankle, foot; for foot includes sole/toes/top of foot Stand Alone Forms: Work/School Release Interventions: ED Discharge Assessment Last Done: 04/21/22 04:11 Discharge Date/Time: 04/21/22 04:12
[2022-04-21 03:28] LABS: Influenza A PCR POSITIVE (Negative); Influenza B PCR NEGATIVE (Negative); Resp Syncy Virus RNA Qual PCR NEGATIVE (Negative); SARS COV2 PCR INHOUSE NEGATIVE (Negative)
== END 2022-04-21 04:12 | disposition home or self-care (01) ==
PROVIDERS: Emergency Provider Internal Medicine
DX: J10.1 Influenza due to other identified influenza virus with other respiratory manifestations (principal); N39.0 Urinary tract infection, site not specified; Z20.822 Contact with and (suspected) exposure to COVID-19; Z79.899 Other long term (current) drug therapy
CPT/HCPCS: 0241U; 36415; 80048; 81001; 81025; 85025; 87086; 99284

== ENCOUNTER 2022-06-01 11:30 | Outpatient (RCR) | payer OTHER, SELFPAY ==
--- NOTE | 2022-05-03 09:44 | MHC.OT.EP ---
[address] [phone] Occupational Therapy Plan of Care Date of Evaluation: 05/03/22 Diagnosis: Bilateral DeQuervains tenosynovitis Assessment: Pt. is a 41 y/o female referred to OT for bilateral radial styloid tenosynovitis. Pt. reports approx 5 month history of worsening pain in thumbs/wrists left greater than right. She was issued bilateral thumb spica splints which reportedly have been helping. Pt. presents with 5/10 pain in right and 8/10 pain in left, very TTP over EBP and ABL tendons, with positive Finklesteins tests bilaterally. 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 A 63.6% limitation is reported per the Quick DASH assessment. Tiana would benefit from skilled OT services to address pain management, activity modification, and exercises to improve function and return to PLOF. Frequency and Duration: The patient will be seen 2x/wk for 6 weeks Short Term Goals: Decrease bilateral thumb pain to <4/10 IND with HEP IND with orthosis wear and activity modification Improve elton gross grasp by 5# each Capacity Planning Analyst Goals: Pain free with BADL's and IADL's IND with progression of HEP Gross grasp >30# bilaterally Quick DASH <25% Treatment Plan: Therapeutic Exercise Home Exercise Program Splinting Patient Education ADL Training Ultrasound Iontophoresis Paraffin Fluidotherapy MHP Soft Tissue Mobilization Kinesiotaping Electronically Signed By: Ritu Adame MS ORL/L Please Sign and return to therapist. Thank you once again for your referral.
== END 2022-07-13 14:28 | disposition home or self-care (01) ==
LOC: HO.OT 11:30
PROVIDERS: PCP Internal Medicine; Visit Provider Student in an Organized Health Care Education/Training Program
DX: M65.4 Radial styloid tenosynovitis [de Quervain] (principal)
CPT/HCPCS: 97033; 97035; 97110; 97165

== ENCOUNTER → 2022-06-05 15:06 | Outpatient (BNVA) | payer OTHER, SELFPAY | PROVIDERS: PCP Internal Medicine; Referring Provider Student in an Organized Health Care Education/Training Program; Visit Provider Nurse Practitioner Family | DX: E80.6 Other disorders of bilirubin metabolism (principal); K21.9 Gastro-esophageal reflux disease without esophagitis | CPT/HCPCS: 99202 ==

== ENCOUNTER → 2022-06-07 10:08 | Outpatient (BNVA) | payer OTHER, SELFPAY | PROVIDERS: PCP Internal Medicine; Visit Provider Student in an Organized Health Care Education/Training Program | DX: M65.4 Radial styloid tenosynovitis [de Quervain] (principal); R76.8 Other specified abnormal immunological findings in serum; E80.6 Other disorders of bilirubin metabolism; M62.830 Muscle spasm of back | CPT/HCPCS: 99212 ==

== ENCOUNTER 2022-07-07 08:28 | Outpatient (REF) | payer OTHER, SELFPAY ==
--- NOTE | ~2022-07-07 | US_ITS ---
EXAMINATION: US ABDOMEN COMPLETE CLINICAL INFORMATION: Unspecified abdominal pain. COMPARISON: CT abdomen and pelvis with contrast 07/18/2021. TECHNIQUE: Real-time imaging of the abdominal viscera. FINDINGS: PANCREAS: The pancreas appears unremarkable, without masses or ductal dilatation, with the exception of the tail which is obscured by bowel gas. ABDOMINAL AORTA: The proximal, mid, and distal segments are normal in caliber. INFERIOR VENA CAVA: Visualized portions are normal. LIVER: The liver is normal in size. The liver contour is normal. There is diffuse increased liver parenchymal echogenicity, consistent with hepatic steatosis. Small subcentimeter hepatic cysts are present but no solid masses are seen. There is no intrahepatic biliary duct dilatation seen. GALLBLADDER: Surgically absent. COMMON BILE DUCT: Normal in caliber measuring 0.5 cm in diameter. RIGHT KIDNEY: Normal. No hydronephrosis. No renal calculi or focal parenchymal lesions. The kidney measures 10.0 cm in maximum dimension. LEFT KIDNEY: Normal. No hydronephrosis. No renal calculi or focal parenchymal lesions. The kidney measures 10.4 cm in maximum dimension. SPLEEN: Normal. The spleen measures 8.8 cm in maximum dimension. FREE FLUID: None US/US abdomen complete IMPRESSION: Hepatic steatosis.
[2022-07-07 11:16] LABS: Bilirubin Direct 0.5 mg/dL (0.0-0.5); Bilirubin Total 2.3 mg/dL (0.0-1.0)
== END 2022-07-07 08:29 | disposition home or self-care (01) ==
LOC: HO.US 08:28
PROVIDERS: Visit Provider Nurse Practitioner Family
DX: R10.9 Unspecified abdominal pain (principal); R17 Unspecified jaundice
CPT/HCPCS: 36415; 76700; 82247; 82248

== ENCOUNTER → 2022-07-17 16:23 | Outpatient (BNVA) | payer OTHER, SELFPAY | PROVIDERS: PCP Internal Medicine; Visit Provider Nurse Practitioner Family | DX: K76.0 Fatty (change of) liver, not elsewhere classified (principal); K21.9 Gastro-esophageal reflux disease without esophagitis; E80.6 Other disorders of bilirubin metabolism | CPT/HCPCS: 99212 ==

== ENCOUNTER 2022-07-25 16:00 | Outpatient (RCR) | payer OTHER, SELFPAY ==
--- NOTE | 2022-06-27 17:44 | MHC.PT.EP ---
[facility] [place] Office [place] Office [place] Office [address] Jovanna Erazo [address] [phone] F: [phone] F: [phone] F: [phone] F: [phone] Physical Therapy Plan of Care Date of Evaluation: Date of Surgery: Diagnosis: low back pain, intervertebral disc degeneration Assessment: Patient is a 42 y.o. female who is referred to PT by Dr. Marie Lance MD with Dx of low back pain, intervertebral disc degeneration. PT diagnosis is LBP with possible disc bulge/involvement on R due to radicular sxs. Patient impairments include pain, radicular sxs, limited ROM, weakness. Patient current functional limitations are getting up from bed, rolling/turning in bed, prolonged sitting, squat/bend at work, cleaning at home (sweep/mop/vacuum). Patient will benefit from skilled PT to address aforementioned impairments and functional limitations to meet established goals. Frequency and Duration: The patient will be seen 1-2x/week for 4 weeks Short Term Goals: 2 weeks Patient demonstrates consistency and independence with HEP to self manage symptoms. Patient is able to centralize R LE symptoms with exercises, demonstrating understanding of lumbar centralization vs peripheralization. 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 Treatment Plan: Modalities to reduce pain, spasms and effusion. Manual therapy to restore motion and function. Therapeutic exercise to improve strength and flexibility. Neuromuscular re-education for posture and balance. Therapeutic activities to return to functional activities of daily living. Electronically signed by: aCrlos Curtis, PT, DPT Please sign and return to therapist. Thank you for your referral.
--- NOTE | 2022-10-03 14:25 | MHC.PT.DC ---
[facility] [place] Office [place] Office [place] Office [address] Jovanna Erazo [address] [facility] [phone] F: [phone] F: [phone] F: [phone] F: [phone] Physical Therapy Discharge Report Diagnosis: low back pain, intervertebral disc degeneration Date of Surgery: Date of Evaluation: 06/27/22 Date of Discharge: 10/03/22 Treatments to Date: 4 Cancellations to Date: 2 No Shows to Date: 3 Discharge Status: Visit Non-compliance Discharge Summary: Patient ceased attending PT on her own accord and is discharged for visit non-compliance. Electronically signed by: Carlos Curtis PT, DPT Please sign and return to therapist. Thank you for your referral.
== END 2022-10-03 14:26 | disposition home or self-care (01) ==
LOC: HO.PT 16:00
PROVIDERS: PCP Student in an Organized Health Care Education/Training Program; Visit Provider Student in an Organized Health Care Education/Training Program
DX: M25.361 Other instability, right knee (principal); M25.362 Other instability, left knee; M51.36 Other intervertebral disc degeneration, lumbar region
CPT/HCPCS: 97110; 97140; 97161

== ENCOUNTER 2022-10-25 16:42 | Emergency (ER) | payer OTHER, SELFPAY ==
[2022-10-25 16:48] VITALS: BP 124/79; PULSE 66; RESP 19; TEMP 36.6; O2SAT 98; BMI 32.3
--- NOTE | 2022-10-25 16:48 | ED_ITS ---
HPI - General Adult General Chief complaint: Dizziness Stated complaint: head pressure affecting vision, dizziness Time Seen by Provider: 10/25/22 19:28 Source: patient Mode of arrival: ambulatory History of Present Illness HPI narrative: 42-year-old female who drove herself and and reports 2-3 days of intermittent head pressure that she states goes from alevism to alevism and at the time that she feels the pressure she becomes dizzy and states that she has visual changes. She then states that completely resolves and she denies any relation with time of day or activity and denies any recent fevers, chills, nausea, vomiting, change in appetite, right ear ringing, year/speech difficulties but does states that she has titrated her Prozac off by herself. Related Data Home Medications Medication Instructions Recorded Confirmed fluoxetine 20 mg capsule 20 mg PO QAM 09/19/21 valacyclovir 1 gram tablet 1,000 mg PO DAILY PRN 09/19/21 amitriptyline 25 mg tablet 25 mg PO BEDTIME 03/17/22 guqsvuxghl-ckxgagpvlwgpp-oehvyeyw 1 tab PO Q8H PRN 03/17/22 50 mg-325 mg-40 mg tablet cyanocobalamin (vitamin B-12) 500 500 mcg PO DAILY 03/17/22 mcg tablet epinephrine 0.3 mg/0.3 mL 0.3 mg IM ONCE PRN 03/17/22 injection, auto-injector fexofenadine 180 mg tablet 180 mg PO DAILY 03/17/22 topiramate 50 mg tablet 50 mg PO DAILY 03/17/22 cholecalciferol (vitamin D3) 25 25 mcg PO DAILY 07/17/22 mcg (1,000 unit) tablet Previous Rx's Medication Instructions Recorded albuterol sulfate 90 mcg/actuation 2 inh inhalation Q6H PRN shortness 10/02/21 aerosol inhaler of breath or wheezing #6.7 grams fluticasone propionate 50 2 spray intranasal DAILY #16 grams 10/02/21 mcg/actuation nasal spray,suspension (Flonase Allergy Relief) diclofenac sodium 1 % topical gel 4 g topical QID #100 grams 03/17/22 (Voltaren Arthritis Pain) thumb spica #2 ea 03/17/22 benzonatate 200 mg capsule 200 mg PO TID PRN cough #30 caps 04/21/22 ibuprofen 600 mg tablet 600 mg PO Q6H PRN fever or pain 04/21/22 #30 tabs Allergies Allergy/AdvReac Type Severity Reaction Status Date / Time prednisone Allergy Intermediate HEART Verified 10/25/22 16:48 RACING benzoyl peroxide AdvReac Unknown Rash Verified 10/25/22 16:48 [From Benzamycin] erythromycin base AdvReac Unknown Rash Verified 10/25/22 16:48 [From Benzamycin] SEAFOOD Allergy Intermediate TONGUE Uncoded 10/25/22 16:48 SWELLING Review of Systems Review of Systems: Pertinent positives and negatives as stated in HPI [facility] Past Medical History Source: nursing notes reviewed Medical History Asthma COVID-19 Hepatic steatosis Migraine Ovarian cyst Rheumatoid arthritis Surgical History History of 2 sections History of removal of ovarian cyst Hx of arthroscopic knee surgery Hx of cholecystectomy Hx of tubal ligation S/P fine needle aspiration Family History Family History Father Hypertension Arthritis Hypercholesteremia Paternal Grandfather Arthritis Paternal Grandmother Arthritis Brother Thyroid disease Seizures Other Diabetes Social History Social History Alcohol intake: never Patient Tobacco Use Status: Never used Tobacco Smoked in Last 30 Days: No Use of substances other than those prescribed or required for medical reasons: No Advance Directives: No Advance Directives Information Provided: No Patient : No Current occupational status: employed 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 GENERAL: Well developed, well nourished, in no acute distress. HEAD: Normocephalic/atraumatic EYES: PERRLA, EOMI OD- 20/70, OS- 20/70 EARS: Ext canals without abnormality NOSE: Nares patent bilateral OROPHARYNX: no oral lesions noted, posterior pharynx clear NECK: Supple, no adenopathy LUNGS: Normal breath sounds. No adventitious sounds or accessory muscle use. SpO2<97> CARDIOVASCULAR: Regular rate and rhythm without noted murmurs ABDOMEN: Soft, non-tender, non-distended with bowel sounds. MUSCULOSKELETAL: No tenderness, deformities, or effusions noted on gross inspection. EXTREMITIES: No cyanosis, clubbing or edema. SKIN: Inspection of the skin reveals no rashes NEUROLOGIC: Alert and oriented x 4. Strength and sensation to light touch were grossly intact x 4, no facial asymmetry, no pronator drift, cranial nerves 2-12 are grossly intact. Course Course Course Narrative: 42-year-old female presents for evaluation of head pressure and dizziness. She reports that the pressure head is ?affecting her vision. ? No trauma to the head or neck. Patient is well-appearing Medical Decision Making Medical Decision Making MDM Narrative: 42-year-old female with symptoms in my interpretation that are most associated with self removal from Prozac. Patient was provided with the relevant withdrawal symptoms, I did review all investigations which are Differential Diagnosis Please see the discussion above Lab Data Please see the discussion above 10/25/22 20:03 10/25/22 20:03 Labs: Lab Results 10/25/22 10/25/22 10/25/22 Range/Units 20:03 20:03 20:03 WBC 9.1 (4.8-10.8) X10*3/uL RBC 4.59 (4.20-5.50) X10*6/uL Hgb 14.7 (12.0-16.0) g/dl Hct 42.2 (37.0-47.0) % MCV 91.9 (80.0-98.0) fL MCH 32.0 (27.0-33.0) pg MCHC 34.8 (31.0-35.0) g/dl RDW 12.4 (11.0-16.0) % Plt Count 257 (160-400) X10*3/uL MPV 11.7 (9.4-12.3) fL Immature Gran % (Auto) 0.3 (0.0-0.4) % Neut % (Auto) 69.1 (45-73) % Lymph % (Auto) 21.5 (20-40) % [place] % (Auto) 7.1 (2-11) % Eos % (Auto) 1.6 (0-4) % Baso % (Auto) 0.4 (0-2) % Lymph # (Auto) 2.0 (1.2-4.9) X10*3/uL [place] # (Auto) 0.7 (0.1-1.2) X10*3/uL Eos # (Auto) 0.2 (0.0-0.4) X10*3/uL Baso # (Auto) 0.0 (0.0-0.2) X10*3/uL Abs Immat Gran (auto) 0.03 (0.00-0.03) X10*3/uL Absolute Neuts (auto) 6.3 (2.0-8.3) x10*3/uL Absolute Nucleated RBC 0.000 (0.0-0.012) X10*3/uL Nucleated RBC % (auto) 0.0 (0.0-0.2) /100WBC ESR (0-20) MM/HR PT 10.3 (10.0-13.1) SEC INR 0.9 (0.9-1.1) Sodium 139 (135-145) mmol/L Potassium 4.3 (3.3-5.1) mmol/L Chloride 110 H (96-108) mmol/L Carbon Dioxide 23 (22-29) mmol/L Anion Gap 10 L (12-20) BUN 11 (9-16) mg/dL Creatinine 0.77 (0.5-1.4) mg/dL Estim Creat Clear Calc 84.2 Estimated GFR > 60 Random Glucose 87 (60-115) mg/dL Calcium 9.7 (8.4-10.2) mg/dL Total Bilirubin 0.9 (0.0-1.0) mg/dL AST 14 (5-31) U/L ALT 17 (0-31) U/L Alkaline Phosphatase 64 (39-117) U/L C-Reactive Protein 0.11 (< or = 0.50) mg/dL Total Protein 7.6 (6.5-8.0) g/dL Albumin 4.3 (3.5-5.0) g/dL 10/25/22 Range/Units 20:04 WBC (4.8-10.8) X10*3/uL RBC (4.20-5.50) X10*6/uL Hgb (12.0-16.0) g/dl Hct (37.0-47.0) % MCV (80.0-98.0) fL MCH (27.0-33.0) pg MCHC (31.0-35.0) g/dl RDW (11.0-16.0) % Plt Count (160-400) X10*3/uL MPV (9.4-12.3) fL Immature Gran % (Auto) (0.0-0.4) % Neut % (Auto) (45-73) % Lymph % (Auto) (20-40) % [place] % (Auto) (2-11) % Eos % (Auto) (0-4) % Baso % (Auto) (0-2) % Lymph # (Auto) (1.2-4.9) X10*3/uL [place] # (Auto) (0.1-1.2) X10*3/uL Eos # (Auto) (0.0-0.4) X10*3/uL Baso # (Auto) (0.0-0.2) X10*3/uL Abs Immat Gran (auto) (0.00-0.03) X10*3/uL Absolute Neuts (auto) (2.0-8.3) x10*3/uL Absolute Nucleated RBC (0.0-0.012) X10*3/uL Nucleated RBC % (auto) (0.0-0.2) /100WBC ESR 7 (0-20) MM/HR PT (10.0-13.1) SEC INR (0.9-1.1) Sodium (135-145) mmol/L Potassium (3.3-5.1) mmol/L Chloride (96-108) mmol/L Carbon Dioxide (22-29) mmol/L Anion Gap (12-20) BUN (9-16) mg/dL Creatinine (0.5-1.4) mg/dL Estim Creat Clear Calc Estimated GFR Random Glucose (60-115) mg/dL Calcium (8.4-10.2) mg/dL Total Bilirubin (0.0-1.0) mg/dL AST (5-31) U/L ALT (0-31) U/L Alkaline Phosphatase (39-117) U/L C-Reactive Protein (< or = 0.50) mg/dL Total Protein (6.5-8.0) g/dL Albumin (3.5-5.0) g/dL External Record Review External record reviewed: Prior outpatient labs Discharge Plan Discharge Clinical Impression: Side effect of medication Patient Disposition: Home, Self-Care Instructions: General Headache (ED) Additional Instructions: 1. You have received in complete workup which does not demonstrate any abnormality, however the symptoms are very consistent with withdrawal from Prozac and I strongly recommend that in the future when you titrate this medication down that you do it under the supervision of your physician. Please follow-up with your doctor in the morning and I strongly recommend that you resume your medication. Return to the ER for any worsening symptoms. Prescriptions: No Action benzonatate 200 mg capsule 200 mg PO TID PRN (Reason: cough) Qty: 30 0RF ibuprofen 600 mg tablet 600 mg PO Q6H PRN (Reason: fever or pain) Qty: 30 0RF fluticasone propionate [Flonase Allergy Relief] 50 mcg/actuation spray,suspension 2 spray intranasal DAILY Qty: 16 0RF Rx Instructions: administer into each nostril albuterol sulfate 90 mcg/actuation HFA aerosol inhaler 2 inh inhalation Q6H PRN (Reason: shortness of breath or wheezing) Qty: 6.7 0RF fluoxetine 20 mg capsule 20 mg PO QAM valacyclovir 1 gram tablet 1,000 mg PO DAILY PRN topiramate 50 mg tablet 50 mg PO DAILY amitriptyline 25 mg tablet 25 mg PO BEDTIME lvowmchhxv-lpuaifmjagqjv-ccmr 50-325-40 mg tablet 1 tab PO Q8H PRN epinephrine 0.3 mg/0.3 mL auto-injector 0.3 mg IM ONCE PRN fexofenadine 180 mg tablet 180 mg PO DAILY cyanocobalamin (vitamin B-12) 500 mcg tablet 500 mcg PO DAILY (DME) thumb spica See Rx Instructions .Route .MEDSUPPLY Qty: 2 0RF Rx Instructions: As directed use as much as possible throughout the day diclofenac sodium [Voltaren Arthritis Pain] 1 % gel 4 g topical QID Qty: 100 0RF Rx Instructions: apply to single knee, ankle, foot; for foot includes sole/toes/top of foot cholecalciferol (vitamin D3) 25 mcg (1,000 unit) tablet 25 mcg PO DAILY Referrals: Marlena Barnes MD [Primary Care Provider] -
[2022-10-25 19:46] VITALS: BP 116/76; PULSE 87; RESP 12; TEMP 37.3; O2SAT 97
--- NOTE | 2022-10-25 19:58 | PC.NURSE ---
Patient received in bed with eyes open patient have no complaints of pain at this time patient vitals are stable patient is calm and cooperative with staff patient received a saline lock 20g in the RAC with no issues patient was seen by the doctor all labs were collected and patient was given a UA specimen cup encouraged to give a specimen patient was placed on a monitor and encouraged to reach out to staff if any issues should occur safety will be maintained
[2022-10-25 20:10] LABS: MANUAL DIFF FLAG NO
[2022-10-25 20:12] LABS: Basophils Percent Auto 0.4 % (0-2); Eosinophils Absolute Auto 0.2 X10*3/uL (0.0-0.4); Eosinophils Percent Auto 1.6 % (0-4); Hematocrit 42.2 % (37.0-47.0); Hemoglobin 14.7 g/dl (12.0-16.0); Imm Gran Abs Auto 0.03 X10*3/uL (0.00-0.03); Imm Gran Pct Auto 0.3 % (0.0-0.4); Lymphocytes Percent Auto 21.5 % (20-40); Mean Corpuscular HGB Conc 34.8 g/dl (31.0-35.0); Mean Corpuscular Volume 91.9 fL (80.0-98.0); Mean Platelet Volume 11.7 fL (9.4-12.3); Monocytes Absolute Auto 0.7 X10*3/uL (0.1-1.2); Monocytes Percent Auto 7.1 % (2-11); Neutrophils Absolute Auto 6.3 x10*3/uL (2.0-8.3); Neutrophils Percent Auto 69.1 % (45-73); Platelet Count 257 X10*3/uL (160-400); Red Blood Count 4.59 X10*6/uL (4.20-5.50); Red Cell Distribution Width 12.4 % (11.0-16.0); White Blood Count 9.1 X10*3/uL (4.8-10.8)
[2022-10-25 20:17] LABS: INTERNATIONAL NORM RATIO 0.9 (0.9-1.1); Prothrombin Time 10.3 SEC (10.0-13.1)
[2022-10-25 20:25] LABS: Alanine Aminotransferase 17 U/L (0-31); Albumin Level 4.3 g/dL (3.5-5.0); Alkaline Phosphatase 64 U/L (39-117); Anion Gap 10 (12-20); Aspartate Amino Transferase 14 U/L (5-31); Bilirubin Total 0.9 mg/dL (0.0-1.0); Blood Urea Nitrogen 11 mg/dL (9-16); C Reactive Protein 0.11 mg/dL (< or = 0.50); Calcium 9.7 mg/dL (8.4-10.2); Carbon Dioxide 23 mmol/L (22-29); Chloride 110 mmol/L (96-108); Creatinine Clr Calc Pharmacy 84.2; Estimated Glomerular Filt Rate > 60; Glucose Random 87 mg/dL (60-115); Potassium 4.3 mmol/L (3.3-5.1); Sodium 139 mmol/L (135-145); Total Protein 7.6 g/dL (6.5-8.0)
[2022-10-25 20:54] LABS: Erythrocyte Sedimentation Rate 7 MM/HR (0-20)
[2022-10-25 21:49] VITALS: BP 130/78; PULSE 80; RESP 18; TEMP 36.9; O2SAT 99
== END 2022-10-25 22:01 | disposition home or self-care (01) ==
PROVIDERS: Emergency Provider Student in an Organized Health Care Education/Training Program; PCP Internal Medicine
DX: R42 Dizziness and giddiness (principal); T43.225A Adverse effect of selective serotonin reuptake inhibitors, initial encounter; Y92.9 Unspecified place or not applicable
CPT/HCPCS: 36415; 80053; 85025; 85610; 85652; 86140; 99283; 99284

== ENCOUNTER 2022-12-02 17:43 | Emergency (ER) | payer OTHER, SELFPAY ==
--- NOTE | ~2022-12-02 | XR_ITS ---
Examination: Lumbar spine and right shoulder. CLINICAL INDICATION: Low back pain and shoulder pain. COMPARISON: None. TECHNIQUE: Right shoulder 3 views. Lumbar spine 3 views. FINDINGS: Lumbar spine: There is normal lumbar lordosis. The vertebral heights, alignment and disc heights are normal. There is no visible acute fracture, dislocation or subluxation seen. No aggressive lytic or sclerotic process seen. SI joints are symmetrical and normal. Right shoulder: There is no visible acute fracture, dislocation or subluxation seen. No bony erosive changes seen. The soft tissues are normal. XR/XR shoulder RT min 2V IMPRESSION: 1. Unremarkable lumbar spine exam. 2. Unremarkable right shoulder exam.
--- NOTE | ~2022-12-02 | XR_ITS ---
Examination: Lumbar spine and right shoulder. CLINICAL INDICATION: Low back pain and shoulder pain. COMPARISON: None. TECHNIQUE: Right shoulder 3 views. Lumbar spine 3 views. FINDINGS: Lumbar spine: There is normal lumbar lordosis. The vertebral heights, alignment and disc heights are normal. There is no visible acute fracture, dislocation or subluxation seen. No aggressive lytic or sclerotic process seen. SI joints are symmetrical and normal. Right shoulder: There is no visible acute fracture, dislocation or subluxation seen. No bony erosive changes seen. The soft tissues are normal. XR/XR lumbar spine 2-3V IMPRESSION: 1. Unremarkable lumbar spine exam. 2. Unremarkable right shoulder exam.
[2022-12-02 17:54] VITALS: BP 123/70; PULSE 73; RESP 18; TEMP 36.8; O2SAT 98; BMI 30.5
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
[2022-12-02] MEDS: Ibuprofen 800 MG TABLET PO (19:55)
== END 2022-12-02 20:11 | disposition home or self-care (01) ==
PROVIDERS: Emergency Provider Emergency Medicine
DX: S30.0XXA Contusion of lower back and pelvis, initial encounter (principal); V43.62XA Car passenger injured in collision with other type car in traffic accident, initial encounter; Y93.89 Activity, other specified; Y92.411 Interstate highway as the place of occurrence of the external cause; Y99.9 Unspecified external cause status
CPT/HCPCS: 72100; 73030; 99283

== ENCOUNTER → 2023-05-03 16:01 | Outpatient (REF) | payer OTHER, SELFPAY | LOC: HO.SL 16:01 | PROVIDERS: Visit Provider Psychiatry & Neurology Neurology | DX: Z13.89 Encounter for screening for other disorder (principal) ==

== ENCOUNTER → 2023-05-17 08:55 | Outpatient (REF) | payer OTHER, SELFPAY | LOC: HO.SL 08:55 | PROVIDERS: Visit Provider Psychiatry & Neurology Neurology | DX: G47.33 Obstructive sleep apnea (adult) (pediatric) (principal) | CPT/HCPCS: 95806 ==

== ENCOUNTER → 2023-05-17 19:00 | Outpatient (BNV) | payer OTHER, SELFPAY | PROVIDERS: Visit Provider Internal Medicine | DX: R06.83 Snoring (principal) | CPT/HCPCS: 95806 ==

== ENCOUNTER 2023-06-07 08:01 | Outpatient (AMB) | payer OTHER, SELFPAY ==
[2023-06-07 08:04] VITALS: BP 116/78; PULSE 81; TEMP 36; O2SAT 97; BMI 33.7
--- NOTE | 2023-06-07 08:04 | MHC.OFFVIS ---
Intake Vital Signs 06/07/23 08:04 Height 4 ft 11 in Weight 167 lb BMI 33.7 BP 116/78 Blood Pressure Location Rt brachial Position Sitting Pulse 81 Pulse Source Pulse Oximeter Temp 96.8 F Temp Source Skin Pulse Oximetry (%) 97 Oxygen Delivery Method Room Air Intake Visit Reasons: dequiervain's tenosynovitis Intake Note: Pt last seen 06/07/22 presents today for follow up. 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 Accompanied by: Self / Same As Patient Allergies prednisone Allergy (Intermediate, Verified 06/07/23 08:13) HEART RACING benzoyl peroxide [From Benzamycin] Adverse Reaction (Unknown, Verified 06/07/23 08:13) Rash erythromycin base [From Benzamycin] Adverse Reaction (Unknown, Verified 06/07/23 08:13) Rash SEAFOOD Allergy (Intermediate, Uncoded 06/07/23 08:13) TONGUE SWELLING Medication List - Last Reconciled 06/07/23 by Marie Lance MD albuterol sulfate 90 mcg/actuation 2 inhalations inhalation Q6H PRN amitriptyline 25 mg PO BEDTIME yyzxtdjxeq-vpiisdhwbdpaj-pgwf 50-325-40 mg 1 tab PO Q8H PRN cholecalciferol (vitamin D3) 25 mcg PO DAILY cyanocobalamin (vitamin B-12) 500 mcg PO DAILY diclofenac sodium 1% (Voltaren Arthritis Pain) 4 grams topical QID epinephrine 0.3 mg IM ONCE PRN fexofenadine 180 mg PO DAILY fluoxetine 20 mg PO QAM fluticasone propionate 50 mcg/actuation (Flonase Allergy Relief) 2 sprays intranasal DAILY ibuprofen 600 mg PO Q6H PRN [thumb spica As directed use as much as possible throughout the day] topiramate 50 mg PO DAILY valacyclovir 1,000 mg PO DAILY PRN HPI HPI Comments History of Present Illness Details 43-year-old patient returns for follow-up of de Quervain tenosynovitis. Patient states that she is feeling much better overall. She has not had any significant recurrence of her symptoms. She is currently on naproxen for a bone spur on her left foot prescribed for 2 weeks. Initial history: This is a 41-year-old female with a past medical history of asthma, migraines presents for evaluation of an inflammatory arthritis.. Patient stated she has had bilateral hand pain and stiffness for years. Her hand pain is worse with activity. She had a positive BANDAR in the past and was evaluated by Dr. Jonas in 2018 and was deemed not to have an inflammatory arthritis. She had bilateral thumb trigger finger injections which helped for a few months. She states she has always been wobbly when she walks and recently she injured her right ankle. She also has been having worsening fatigue and headaches over the last few weeks. More than a year ago she developed an itchy skin rash on her breast. She was evaluated by Dermatology and she was advised to take Darlene daily to prevent the rash. She states that some of these rashes are worse in the sun. She did not have a skin biopsy. She denies any blood or frothy urine. No history of DVT/PE. 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 Review of Systems [facility] – [place], [place] Reports arthralgias Physical Exam Vital Signs: Last Vital Signs Temp 96.8 F 06/07/23 08:04 Pulse 81 06/07/23 08:04 BP 116/78 06/07/23 08:04 Pulse Ox 97 06/07/23 08:04 Oxygen Delivery Method Room Air 06/07/23 08:04 BMI result Body Mass Index 33.7 Const General: cooperative, healthy appearing, comfortable and no acute distress Nutritional Appearance: obese Orientation/consciousness: patient oriented x3 Limitations: no limitations HEENT Head: Yes normocephalic and Yes atraumatic Mouth: Normal oral and palatal mucosa present Resp Effort & Inspection: normal respiratory effort and able to speak in complete sentences Neuro General: patient oriented x3 Extrem Other: Negative Stacey's test bilaterally No active synovitis Normal nailfold capillaroscopy Results Reviewed Results Reviewed: X-RAY EXAM OF ANKLE, COMPLETE Exam Date: 03/02/2022 11:11 AM Ordering Diagnosis: Acute right ankle painGanglion cyst of right foot ? Right ankle, 3 views. History pain for one week. No injury. There is no visible fractures, dislocations or destructive lesions. There is tiny inferior calcaneal spur. ? CONCLUSIONS: Tiny inferior calcaneal spur. Otherwise unremarkable examination. X-RAY EXAM OF HAND, 3+ VIEWS Exam Date: 10/22/2017 4:12 PM Ordering Diagnosis: Bilateral hand painSwelling of both hands ? BILATERAL HANDS, 3 VIEWS EACH ? HISTORY: Pain. ? COMPARISON: Bilateral hands 08/05/2013. ? FINDINGS: Mild periarticular osteopenia of the metacarpal phalangeal joints bilaterally is not significantly changed. ? There is no acute fracture, malalignment, joint effusion, soft tissue abnormality, or radiopaque foreign body in either hand. ? IMPRESSION IMPRESSION: Unchanged mild periarticular osteopenia. No acute findings. Assessment & Plan Assessment & Plan (1) De Quervain's tenosynovitis, bilateral: Code(s): M65.4 - Radial styloid tenosynovitis [de Quervain] Plan: Discussed the nature of de Quervain tenosynovitis. It is an overuse tendinitis. Symptoms significantly improved with occupational therapy and using the thumb splints. Advised patient to use thumb splints as needed when she has recurrence, can try using Voltaren gel. Patient can follow-up as needed (2) BANDAR positive: Code(s): R76.8 - Other specified abnormal immunological findings in serum Plan: Patient had a positive BANDAR 1-320 in the past, it was negative on repeat testing. As well as comprehensive serology. She has normal inflammatory markers & I could not find any evidence of autoimmune rheumatic condition. Plan I spent 15 minutes reviewing patient's chart, evaluating patient, counseling patient and documenting in the chart Coding Level of Care Code Est Pt Level 3 (90805) Diagnoses De Quervain's tenosynovitis, bilateral M65.4 BANDAR positive R76.8
== END 2023-06-07 08:19 | disposition home or self-care (01) ==
PROVIDERS: Visit Provider Student in an Organized Health Care Education/Training Program
DX: M65.4 Radial styloid tenosynovitis [de Quervain] (principal); R76.8 Other specified abnormal immunological findings in serum
CPT/HCPCS: 99213

== ENCOUNTER → 2023-06-07 08:01 | Outpatient (BNVA) | payer OTHER, SELFPAY | PROVIDERS: Visit Provider Student in an Organized Health Care Education/Training Program | DX: M65.4 Radial styloid tenosynovitis [de Quervain] (principal); R76.8 Other specified abnormal immunological findings in serum | CPT/HCPCS: 99212 ==

== ENCOUNTER 2023-08-28 17:02 | Emergency (ER) | payer OTHER, SELFPAY ==
--- NOTE | ~2023-08-28 | XR_ITS ---
EXAMINATION:XR foot RT min 3V, XR ankle RT min 3V VIEWS ACQUIRED: Frontal lateral and oblique CLINICAL INFORMATION: Reason for Exam swelling to lateral ankle/foot COMPARISON: February 2022 FINDINGS: There is soft tissue swelling around lateral malleolus. There is no evidence of acute fracture or dislocation. Intertarsal, tarsometatarsal, metatarsophalangeal and interphalangeal joints are intact. Surrounding soft tissues is normal. , Small inferior calcaneal spur. Metatarsophalangeal and interphalangeal joints are intact. Frontal alignment normal XR/XR foot RT min 3V IMPRESSION: 1. No radiographic evidence of acute fracture. 2. Small inferior calcaneal spur. 3. Soft tissue swelling around lateral malleolus.
--- NOTE | ~2023-08-28 | XR_ITS ---
EXAMINATION:XR foot RT min 3V, XR ankle RT min 3V VIEWS ACQUIRED: Frontal lateral and oblique CLINICAL INFORMATION: Reason for Exam swelling to lateral ankle/foot COMPARISON: February 2022 FINDINGS: There is soft tissue swelling around lateral malleolus. There is no evidence of acute fracture or dislocation. Intertarsal, tarsometatarsal, metatarsophalangeal and interphalangeal joints are intact. Surrounding soft tissues is normal. , Small inferior calcaneal spur. Metatarsophalangeal and interphalangeal joints are intact. Frontal alignment normal XR/XR ankle RT min 3V IMPRESSION: 1. No radiographic evidence of acute fracture. 2. Small inferior calcaneal spur. 3. Soft tissue swelling around lateral malleolus.
--- NOTE | 2023-08-28 18:08 | ED.LOWEXIN ---
HPI - Extremity Injury (Lower) General Chief Complaint: Extremity Injury, Lower Stated Complaint: RT ankle swelling Time Seen by Provider: 08/28/23 22:23 Source: patient Mode of arrival: ambulatory Limitations: no limitations History of Present Illness HPI Narrative: Patient with history of ganglion cyst on the right ankle woke up yesterday with swelling with bruising without significant pain accept on touching that area no recent trauma Related Data Home Medications ?Medication ?Instructions ?Recorded ?Confirmed fluoxetine 20 mg capsule 20 mg PO QAM 09/19/21 06/07/23 valacyclovir 1 gram tablet 1,000 mg PO DAILY PRN 09/19/21 06/07/23 amitriptyline 25 mg tablet 25 mg PO BEDTIME 03/17/22 06/07/23 olnbnfyzbx-etemlzejfouor-eqmolcep 1 tab PO Q8H PRN 03/17/22 06/07/23 50 mg-325 mg-40 mg tablet cyanocobalamin (vitamin B-12) 500 500 mcg PO DAILY 03/17/22 06/07/23 mcg tablet epinephrine 0.3 mg/0.3 mL 0.3 mg IM ONCE PRN 03/17/22 06/07/23 injection, auto-injector fexofenadine 180 mg tablet 180 mg PO DAILY 03/17/22 06/07/23 topiramate 50 mg tablet 50 mg PO DAILY 03/17/22 06/07/23 cholecalciferol (vitamin D3) 25 25 mcg PO DAILY 07/17/22 06/07/23 mcg (1,000 unit) tablet Previous Rx's ?Medication ?Instructions ?Recorded albuterol sulfate 90 mcg/actuation 2 inh inhalation Q6H PRN shortness 10/02/21 aerosol inhaler of breath or wheezing #6.7 grams fluticasone propionate 50 2 spray intranasal DAILY #16 grams 10/02/21 mcg/actuation nasal spray,suspension (Flonase Allergy Relief) diclofenac sodium 1 % topical gel 4 g topical QID #100 grams 03/17/22 (Voltaren Arthritis Pain) thumb spica #2 ea 03/17/22 ibuprofen 600 mg tablet 600 mg PO Q6H PRN fever or pain 04/21/22 #30 tabs Allergies Allergy/AdvReac Type Severity Reaction Status Date / Time prednisone AdvReac Intermediate HEART Verified 08/28/23 18:11 RACING benzoyl peroxide AdvReac Unknown Rash Verified 08/28/23 18:11 [From Benzamycin] erythromycin base AdvReac Unknown Rash Verified 08/28/23 18:11 [From Benzamycin] SEAFOOD Allergy Intermediate TONGUE Uncoded 06/07/23 08:13 SWELLING Review of Systems Review of Systems: Yes all other systems are reviewed and are negative [facility] Past Medical History Medical History Hepatic steatosis Rheumatoid arthritis Migraine Asthma Ovarian cyst COVID-19 Surgical History History of removal of ovarian cyst Hx of arthroscopic knee surgery Hx of cholecystectomy S/P fine needle aspiration History of 2 sections Hx of tubal ligation Family History Family History Father Hypertension Arthritis Hypercholesteremia Paternal Grandfather Arthritis Paternal Grandmother Arthritis Brother Thyroid disease Seizures Other Diabetes Social History Social History Alcohol intake: never Patient Tobacco Use Status: Never used Tobacco Advance Directives: No Advance Directives Information Provided: No Current occupational status: employed 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 Soft tissue swelling with ecchymosis no bony deformity slight tenderness neurovascular intact Course Course Course Narrative: RME:?43 yo female here for eval of atraumatic right ankle swelling/ bruising on waking this morning. She has a known ganglion cyst to her right ankle with surgery scheduled for November through . Admits that this was originally a hard nodule, on waking this morning the area was swollen and bruised. Denies any pain. Denies trauma or injury to the ankle. xrs ordered. Full HPI, ROS and PE to be performed by the primary ED provider. Medical Decision Making Medical Decision Making MDM Narrative: Patient with right foot ganglion cyst likely ruptured causing the bruise and pain is wrap was applied patient advised just to the right foot wear the Sridhar wrap and take ibuprofen for pain Discharge Plan Discharge Clinical Impression: Sprain of ankle Patient Disposition: Home, Self-Care Instructions: Ankle Sprain (ED), Ganglion Cysts (ED) Additional Instructions: Likely have ruptured ganglion cyst in the right ankle causing swelling Rest to the right foot Wear the Sridhar wrap for support Ibuprofen for pain Prescriptions: No Action ibuprofen 600 mg tablet 600 mg PO Q6H PRN (Reason: fever or pain) Qty: 30 0RF fluticasone propionate [Flonase Allergy Relief] 50 mcg/actuation spray,suspension 2 spray intranasal DAILY Qty: 16 0RF Rx Instructions: administer into each nostril albuterol sulfate 90 mcg/actuation HFA aerosol inhaler 2 inh inhalation Q6H PRN (Reason: shortness of breath or wheezing) Qty: 6.7 0RF fluoxetine 20 mg capsule 20 mg PO QAM valacyclovir 1 gram tablet 1,000 mg PO DAILY PRN topiramate 50 mg tablet 50 mg PO DAILY amitriptyline 25 mg tablet 25 mg PO BEDTIME ujaohbzgsn-ipstdlydkhwyr-dsef 50-325-40 mg tablet 1 tab PO Q8H PRN epinephrine 0.3 mg/0.3 mL auto-injector 0.3 mg IM ONCE PRN fexofenadine 180 mg tablet 180 mg PO DAILY cyanocobalamin (vitamin B-12) 500 mcg tablet 500 mcg PO DAILY (DME) thumb spica See Rx Instructions .Route .MEDSUPPLY Qty: 2 0RF Rx Instructions: As directed use as much as possible throughout the day diclofenac sodium [Voltaren Arthritis Pain] 1 % gel 4 g topical QID Qty: 100 0RF Rx Instructions: apply to single knee, ankle, foot; for foot includes sole/toes/top of foot cholecalciferol (vitamin D3) 25 mcg (1,000 unit) tablet 25 mcg PO DAILY Print Language: Citizen Of [place]
[2023-08-28 18:09] VITALS: BP 137/73; PULSE 65; RESP 16; TEMP 36.1; O2SAT 99; BMI 32.5
[2023-08-28 23:01] VITALS: BP 120/77; PULSE 52; RESP 17; TEMP 37.1; O2SAT 96
[2023-08-29 02:27] VITALS: BP 120/77; PULSE 52; RESP 7; TEMP 37.1; O2SAT 96
== END 2023-08-29 00:20 | disposition home or self-care (01) ==
PROVIDERS: Emergency Provider Internal Medicine; PCP Internal Medicine
DX: M25.471 Effusion, right ankle (principal); S93.401A Sprain of unspecified ligament of right ankle, initial encounter; X58.XXXA Exposure to other specified factors, initial encounter; Y93.9 Activity, unspecified; Y92.9 Unspecified place or not applicable; Y99.9 Unspecified external cause status; M67.471 Ganglion, right ankle and foot
CPT/HCPCS: 73610; 73630; 99283

== ENCOUNTER 2024-01-18 23:13 | Emergency (ER) | payer OTHER, SELFPAY ==
[2024-01-18 23:18] VITALS: BP 119/78; PULSE 68; RESP 14; TEMP 36; O2SAT 98; BMI 32.0
[2024-01-18 23:48] VITALS: BP 118/59; PULSE 60; RESP 17; TEMP 36.6; O2SAT 97
[2024-01-18 23:51] LABS: Appearance Urine Cloudy; Color Urine Yellow; Glucose Urine UA Negative (Negative); Leukocyte Esterase Urine Large (3+) (Negative); Nitrite Urine Negative (Negative); UMIC TRIGGER UACC YES; Urine Blood Trace (Negative); Urine Ketones Negative (Negative); Urine Protein Trace mg/dL (Neg-Trace)
[2024-01-18 23:54] LABS: Bacteria Urine None Seen (None Seen); Hyaline Casts Urine 0-2 /LPF (0-2); UACC Culture Trigger YES; WBC Urine >50 /HPF (0-5)
--- NOTE | 2024-01-19 00:29 | ED.FEMALEGU ---
HPI - Female Genitourinary General Chief complaint: Urogenital-Female Stated complaint: ?UTI Time Seen by Provider: 01/18/24 23:40 Source: patient Mode of arrival: ambulatory Limitations: no limitations History of Present Illness ED Provider: Dr. Justin Martins HPI Narrative: 43-year-old female with a history of asthma, depression who presents emergency department for evaluation of urinary frequency, cloudy urine and a foul order to her urine times 5 days. The patient denied fever, chills, back pain, abdominal pain. She states she is feeling fatigued. Related Data Home Medications ?Medication ?Instructions ?Recorded ?Confirmed fluoxetine 20 mg capsule 20 mg PO QAM 09/19/21 06/07/23 valacyclovir 1 gram tablet 1,000 mg PO DAILY PRN 09/19/21 06/07/23 amitriptyline 25 mg tablet 25 mg PO BEDTIME 03/17/22 06/07/23 mcfadrfocs-pmmraxndybtjt-cmxnqgdd 1 tab PO Q8H PRN 03/17/22 06/07/23 50 mg-325 mg-40 mg tablet cyanocobalamin (vitamin B-12) 500 500 mcg PO DAILY 03/17/22 06/07/23 mcg tablet epinephrine 0.3 mg/0.3 mL 0.3 mg IM ONCE PRN 03/17/22 06/07/23 injection, auto-injector fexofenadine 180 mg tablet 180 mg PO DAILY 03/17/22 06/07/23 topiramate 50 mg tablet 50 mg PO DAILY 03/17/22 06/07/23 cholecalciferol (vitamin D3) 25 25 mcg PO DAILY 07/17/22 06/07/23 mcg (1,000 unit) tablet Previous Rx's ?Medication ?Instructions ?Recorded albuterol sulfate 90 mcg/actuation 2 inh inhalation Q6H PRN shortness 10/02/21 aerosol inhaler of breath or wheezing #6.7 grams fluticasone propionate 50 2 spray intranasal DAILY #16 grams 10/02/21 mcg/actuation nasal spray,suspension (Flonase Allergy Relief) diclofenac sodium 1 % topical gel 4 g topical QID #100 grams 03/17/22 (Voltaren Arthritis Pain) thumb spica #2 ea 03/17/22 ibuprofen 600 mg tablet 600 mg PO Q6H PRN fever or pain 04/21/22 #30 tabs cefuroxime axetil 250 mg tablet 250 mg PO Q12H 5 days #10 tabs 01/19/24 Allergies Allergy/AdvReac Type Severity Reaction Status Date / Time prednisone AdvReac Intermediate HEART Verified 01/18/24 23:19 RACING benzoyl peroxide AdvReac Unknown Rash Verified 01/18/24 23:19 [From Benzamycin] erythromycin base AdvReac Unknown Rash Verified 01/18/24 23:19 [From Benzamycin] SEAFOOD Allergy Intermediate TONGUE Uncoded 01/18/24 23:19 SWELLING Review of Systems Review of Systems: Yes all other systems are reviewed and are negative [facility] [place] Past Medical History Medical History Hepatic steatosis Rheumatoid arthritis Migraine Asthma Ovarian cyst COVID-19 Surgical History History of removal of ovarian cyst Hx of arthroscopic knee surgery Hx of cholecystectomy S/P fine needle aspiration History of 2 sections Hx of tubal ligation Family History Family History Father Hypertension Arthritis Hypercholesteremia Paternal Grandfather Arthritis Paternal Grandmother Arthritis Brother Thyroid disease Seizures Other Diabetes Social History Social History Alcohol intake: never Patient Tobacco Use Status: Never used Tobacco Smoked in Last 30 Days: No Advance Directives: No Advance Directives Information Provided: Yes Do you have a plan to hurt others: No Plan Patient : No Current occupational status: employed 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 Physical Exam Vital Signs: Vital Signs: Last Vital Signs Temp 97.9 F 01/19/24 00:46 Pulse 60 01/19/24 00:46 Resp 17 01/19/24 00:46 BP 118/59 L 01/19/24 00:46 Pulse Ox 97 01/19/24 00:46 O2 Del Method Room Air 01/19/24 00:46 BMI result Body Mass Index 32.0 Vital signs were normal Exam: General: Awake, alert in no distress Head: Normocephalic, atraumatic EENT: PERRL, Lids normal, sclera normal, conjunctiva normal, nose normal , ears normal, throat without erythema or exudates Neck: Supple, no adenopathy Lung: breath sounds symmetric, no wheezing, rales or rhonchi Chest: symmetric movement, nontender Heart: regular rate and rhythm, normal S1, S2 no murmurs or rubs Abdomen: soft, non-tender, nondistended, normal bowel sounds Back: no vertebral tenderness, no CVAT Extremities: no deformities, moves all extremities symmetrically Neuro: Awake, alert, oriented, normal speech, cranial nerves intact, moves all extremities symmetrically Psych: Pleasant, cooperative Medications Administered Discontinued Medications Generic Name Dose Route Start Last Admin Trade Name Freq PRN Reason Stop Dose Admin Cefuroxime Axetil 250 mg 01/19/24 00:30 01/19/24 00:49 Cefuroxime Axetil 250 Mg Tablet PO 01/19/24 00:31 250 mg ONCE ONE Administration Medical Decision Making Medical Decision Making [facility] Narrative: 43-year-old female with history of depression and asthma presents emergency department for evaluation of 5 days of urinary tract like symptoms including cloudy urine, foul-smelling urine and frequency with no abdominal pain or flank pain. Vital signs were normal. Physical examination was unremarkable. Differential diagnosis: Includes but is not limited to rinary tract infection, pyelonephritis, STD Following evaluation was ordered: urinalysis Patient was initially treated with the following: cefuroxime 250 mg orally Course: the patient's physical examination was unremarkable. Urinalysis did reveal the blood and greater than 50 WBCs with no bacteria. Given her symptoms however I believe that she does have urinary tract infection therefore she was treated empirically with cefuroxime 250 mg q.12 hours x5 days given her 1st dose here in the emergency department. she was given printed and verbal instructions and discharged home. Lab Data [facility] Lab Attestation statement: I reviewed the patient's lab results. My independent interpretation patient's laboratory evaluation is as follows: Urinalysis was trace positive for blood, 3+ positive for leukocyte esterase. Microscopic revealed 3-5 RBCs, greater than 50 WBCs 3-5 squamous cells, no bacteria seen. Labs: Lab Results 01/18/24 Range/Units 23:46 Urine Color Yellow Urine Appearance Cloudy Urine pH 7.0 (5.0-9.0) Ur Specific Cody 1.020 (1.005-1.025) Urine Protein Trace (Neg-Trace) mg/dL Urine Glucose (UA) Negative (Negative) mg/dL Urine Ketones Negative (Negative) mg/dL Urine Blood Trace H (Negative) Urine Nitrite Negative (Negative) Ur Leukocyte Esterase Large (3+) H (Negative) Urine RBC 3-5 H (0-2) /HPF Urine WBC >50 H (0-5) /HPF Ur Squamous Epith Cells 3-5 (0-2) /HPF Urine Bacteria None Seen (None Seen) Hyaline Casts 0-2 (0-2) /LPF Prescription Management I considered prescription management with: Antibiotic Discharge Plan Discharge Clinical Impression: UTI (urinary tract infection) Patient Disposition: Home, Self-Care Instructions: Urinary Tract Infection in Women (ED) Additional Instructions: Your urinalysis was consistent with a urinary tract infection Take cefuroxime 250 mg pills, 1 pill every 12 hours for 5 days Take Tylenol (acetaminophen) 500 mg pills, 2 pills every 6 hours as needed for pain or fever. Follow-up with your doctor in 2 days. Please return to the emergency department if your symptoms get worse or if you develop any symptoms that are concerning to you. Prescriptions: New cefuroxime axetil 250 mg tablet 250 mg PO Q12H 5 Days Qty: 10 0RF No Action ibuprofen 600 mg tablet 600 mg PO Q6H PRN (Reason: fever or pain) Qty: 30 0RF fluticasone propionate [Flonase Allergy Relief] 50 mcg/actuation spray,suspension 2 spray intranasal DAILY Qty: 16 0RF Rx Instructions: administer into each nostril albuterol sulfate 90 mcg/actuation HFA aerosol inhaler 2 inh inhalation Q6H PRN (Reason: shortness of breath or wheezing) Qty: 6.7 0RF fluoxetine 20 mg capsule 20 mg PO QAM valacyclovir 1 gram tablet 1,000 mg PO DAILY PRN topiramate 50 mg tablet 50 mg PO DAILY amitriptyline 25 mg tablet 25 mg PO BEDTIME myjbacinub-wgmaytjlvaygs-cdrv 50-325-40 mg tablet 1 tab PO Q8H PRN epinephrine 0.3 mg/0.3 mL auto-injector 0.3 mg IM ONCE PRN fexofenadine 180 mg tablet 180 mg PO DAILY cyanocobalamin (vitamin B-12) 500 mcg tablet 500 mcg PO DAILY (DME) thumb spica See Rx Instructions .Route .MEDSUPPLY Qty: 2 0RF Rx Instructions: As directed use as much as possible throughout the day diclofenac sodium [Voltaren Arthritis Pain] 1 % gel 4 g topical QID Qty: 100 0RF Rx Instructions: apply to single knee, ankle, foot; for foot includes sole/toes/top of foot cholecalciferol (vitamin D3) 25 mcg (1,000 unit) tablet 25 mcg PO DAILY Interventions: ED Discharge Assessment Last Done: 01/19/24 00:46 Discharge Date/Time: 01/19/24 00:51 Print Language: [place]
[2024-01-19 00:46] VITALS: BP 118/59; PULSE 60; RESP 17; TEMP 36.6; O2SAT 97
[2024-01-19] MEDS: cefuroxime axetiL 250 MG TABLET PO (00:49)
== END 2024-01-19 00:51 | disposition home or self-care (01) ==
PROVIDERS: Emergency Provider Emergency Medicine Emergency Medical Services; PCP Internal Medicine
DX: N39.0 Urinary tract infection, site not specified (principal); R53.83 Other fatigue; Z79.899 Other long term (current) drug therapy
CPT/HCPCS: 81001; 87086; 87088; 87186; 99283; 99284

== ENCOUNTER 2024-07-04 09:46 | Outpatient (AMB) | payer OTHER, SELFPAY ==
--- NOTE | 2024-07-04 09:59 | MHC.OFFVIS ---
Vital Signs 07/04/24 10:08 Height 4 ft 11 in Weight 147 lb 4.301 oz BMI 29.7 BP 100/62 Blood Pressure Location Lt brachial Position Sitting Pulse 74 Pulse Source Pulse Oximeter Pulse Oximetry (%) 99 Oxygen Delivery Method Room Air Intake Visit Reasons: middle finger pain/urgent appt req from MD Intake Note: Patient presents for middle finger pain. Allergies prednisone Adverse Reaction (Intermediate, Verified 07/04/24 10:02) HEART RACING benzoyl peroxide [From Benzamycin] Adverse Reaction (Unknown, Verified 07/04/24 10:02) Rash erythromycin base [From Benzamycin] Adverse Reaction (Unknown, Verified 07/04/24 10:02) Rash SEAFOOD Allergy (Intermediate, Uncoded 01/18/24 23:19) TONGUE SWELLING Medication List - Last Reconciled 07/04/24 by Marge Stone MD albuterol sulfate 90 mcg/actuation 2 inhalations inhalation Q6H PRN amitriptyline 25 mg PO BEDTIME [id number]-[id number] 50-325-40 mg 1 tab PO Q8H PRN cefuroxime axetil 250 mg PO Q12H 5 days cholecalciferol (vitamin D3) 25 mcg PO DAILY cyanocobalamin (vitamin B-12) 500 mcg PO DAILY diclofenac sodium 1% (Voltaren Arthritis Pain) 4 grams topical QID epinephrine 0.3 mg IM ONCE PRN ibuprofen 600 mg PO Q6H PRN [thumb spica As directed use as much as possible throughout the day] valacyclovir 1,000 mg PO DAILY PRN HPI Comments Details: Patient is a 44-year-old female with migraine headaches, nonalcoholic hepatic steatosis and positive BANDAR here today for follow up Interval History: Patient last seen 06/07/[address] Lance. At that time she was complaining of wrist pain bilaterally. Exam was consistent with bilateral de Quervain tenosynovitis and she was recommended splinting and topical Voltaren gel. Has a history of positive BANDAR 1:320 in the past but no evidence was found consistent with synovitis or an underlying autoimmune rheumatic condition. Today, Complaining of sharp pain to the tip of the lateral 3 fingers. Only on the left hand. No aggravating factors. No relieving factors. The sensation lasts about 2 seconds and it resolves on its own. Rheumatologic History: Initial history: This is a 41-year-old female with a past medical history of asthma, migraines presents for evaluation of an inflammatory arthritis.. Patient stated she has had bilateral hand pain and stiffness for years. Her hand pain is worse with activity. She had a positive BANDAR in the past and was evaluated by Dr. Jonas in 2018 and was deemed not to have an inflammatory arthritis. She had bilateral thumb trigger finger injections which helped for a few months. She states she has always been wobbly when she walks and recently she injured her right ankle. She also has been having worsening fatigue and headaches over the last few weeks. More than a year ago she developed an itchy skin rash on her breast. She was evaluated by Dermatology and she was advised to take Darlene daily to prevent the rash. She states that some of these rashes are worse in the sun. She did not have a skin biopsy. She denies any blood or frothy urine. No history of DVT/PE. Current Rheumatology Medication(s): [facility] Medical History Hepatic steatosis Rheumatoid arthritis Migraine Asthma Ovarian cyst COVID-19 Surgical History History of removal of ovarian cyst Hx of arthroscopic knee surgery Hx of cholecystectomy S/P fine needle aspiration History of 2 sections Hx of tubal ligation Family History Father Hypertension Arthritis Hypercholesteremia Paternal Grandfather Arthritis Paternal Grandmother Arthritis Brother Thyroid disease Seizures Other Diabetes Social History Alcohol intake: never Patient Tobacco Use Status: Never used Tobacco Current occupational status: employed 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 Review of Systems Const Details: Review of Systems Constitutional: Denies fever, chills, weight loss ENT: Denies vision changes, eye pain or eye redness, dental caries, dry mouth GI: Denies nausea, vomiting, diarrhea, abdominal pain, change in BM Pulm: Denies SOB, SCHAEFER, hemoptysis, wheezing Cards: Denies chest pain, palpitations Skin: Denies Raynaud's, rash, nail changes, photosensitivity, ADMINISTRATIVE ASSISTANT: Denies headaches, weakness, paresthesias, recurrent falls MSK: as per HPI All other systems reviewed and are unremarkable except noted above Physical Exam Vital Signs: Last Vital Signs Pulse 74 07/04/24 10:08 BP 100/62 07/04/24 10:08 Pulse Ox 99 07/04/24 10:08 Oxygen Delivery Method Room Air 07/04/24 10:08 BMI result Body Mass Index 29.7 Vital signs reviewed Physical Examination CONSTITUITIONAL Patient alert and cooperative. Well appearing and in no apparent painful distress HEENT Conjunctiva and sclera clear. ?Pupils equal round and reactive to light. ?No lymphadenopathy. ? CHEST/RESPIRATORY SYSTEM Normal respiratory effort and able to speak in complete sentences. ?Clear to auscultation bilaterally. ?No crackles, rales, rhonchi, wheezes heard. CARDIAC SYSTEM Regular rate and rhythm. ?S1 and S2 heard no murmurs. ?Radial pulses intact bilaterally MSK Hands: ?Good brickmason strength bilaterally. No deformities noted. ?No synovitis noted to the MCPs, PIPs or DIPs. ?No tenderness to palpation of these joints. Wrists: ?Full range of motion at the wrists without pain. ?No tenderness to palpation or synovitis noted to the wrists. Negative Phalen's test. Elbows: Full range of motion without pain. No tenderness, weakness, swelling, increased warmth or erythema. Shoulders: Full range of motion without pain. No tenderness, weakness, swelling, increased warmth or erythema. Hips: Full range of motion without pain. Hip bursa: No tenderness to palpation Knees: ?Full range of motion. ?No tenderness, swelling, increased warmth or erythema.?No effusion or crepitations Ankles: Full range of motion. ?No tenderness, swelling, increased warmth or erythema.? Feet: ?Negative squeeze test. ?No tenderness to palpation or swelling of the MTPs. Tender points:?No tenderness to palpation of the bilateral trapezius, supraspinatus, greater trochanters, anterior costochondral junctions, bilateral gluteal areas, bilateral suboccipital muscle insertions SKIN Skin intact without rashes. Results Reviewed Results Reviewed: No results for the past 2 years Assessment & Plan Assessment & Plan (1) Neuropathy: Code(s): G62.9 - Polyneuropathy, unspecified Plan: #?Neuropathy Patient complaining of shooting pain down the left arm that occurs intermittently Differentials: herniated cervical disc, thoracic outlet syndrome, shoulder impingment syndrome, cubital tunnel syndrome, radial tunnel syndrome and brachial plexus injury Will start with labs and EMG evaluation Plan - EMG - Labs: CBC, CMP, ESR, Vit D, TSH, Heavy metal screen in urine and blood, Vit B12 - RTC 1 month to discuss labs and imaging Plan I spent 20 minutes reviewing the record and labs, taking a history, examining the patient, discussing the treatment plan and documenting in the medical record Orders: Orders Comprehensive Met. Panel Today E55.9 - Vitamin D deficiency, unspecified, G62.9 - Polyneuropathy, unspecified Erythrocyte Sedimentation Rate Today E55.9 - Vitamin D deficiency, unspecified, G62.9 - Polyneuropathy, unspecified Vitamin D 25-OH (D2 and D3) Today E55.9 - Vitamin D deficiency, unspecified, G62.9 - Polyneuropathy, unspecified Complete Blood Count Auto Diff Today E55.9 - Vitamin D deficiency, unspecified, G62.9 - Polyneuropathy, unspecified C Reactive Protein Today E55.9 - Vitamin D deficiency, unspecified, G62.9 - Polyneuropathy, unspecified Vitamin B12 Today E55.9 - Vitamin D deficiency, unspecified, G62.9 - Polyneuropathy, unspecified TSH reflex Free T4 Today E55.9 - Vitamin D deficiency, unspecified, G62.9 - Polyneuropathy, unspecified Heavy Metals Screen Blood Today E55.9 - Vitamin D deficiency, unspecified, G62.9 - Polyneuropathy, unspecified Heavy Metal Screen [place] Urine Today E55.9 - Vitamin D deficiency, unspecified, G62.9 - Polyneuropathy, unspecified NE electromyogram (EMG) Today G62.9 - Polyneuropathy, unspecified Coding Level of Care Code Est Pt Level 3 (86704) Complex EM visit Add On G2211 Diagnoses Neuropathy G62.9
[2024-07-04 10:08] VITALS: BP 100/62; PULSE 74; O2SAT 99; BMI 29.7
--- OUTSIDE RECORDS SUMMARY | 2024-07-04 10:16 | XMS_ITS | Clinical Summary ---
Author Organization 175 [facility] Address [address] [place] [address] Phone Care Team Providers Care Housekeeping Assistant Name Role Phone Marlena Yo MD Primary Care Prov ider Allergies Active Allergy Reactions Criticality Noted Date Comments Clocortolone 05/11/2023 Erythromycin-Benzoyl Peroxide 2018 rash Propylene Glycol 05/11/2023 Medications EPINEPHrine (EpiPen 2-Zach) 0.3 mg/0.3 mL injection Inject 0.3 mL (0.3 mg total) into the thigh if needed for anaphylaxis. Fill with whichever brand is covered by insurance. 2 Active escitalopram (LEXAPRO) 10 mg tablet Take 1 tablet (10 mg total) by mouth 1 (one) time each day. 4 Active Active Problems Problem Noted Date Diagnosed Date Asthma 04/02/2024 Vitamin B12 deficiency 05/11/2021 Vitamin D deficiency 05/11/2021 Nonintractable headache 03/15/2020 Seasonal allergic rhinitis due to pollen 019 BANDAR positive 04/02/2019 Left ankle pain 03/03/2019 Overview (04/02/2024): Intermittent, since spraining in October Gastroesophageal reflux disease without esophagi tis 07/25/2017 Depression 08/14/2012 Hand swelling 08/14/2012 Knee pain 08/05/2012 Encounters Date Type Department Care Team Description 05/06/2024 11:30 AM EST Office Visit Adult Medicine [address] [phone] Marlena Kraus MD Adult general medical examination (Primary Dx); Encounter for screening mammogram for malignant neoplasm of breast; Urinary tract infection without hematuria, site unspecified; Skin tag 05/01/2024 2:30 PM EST Office Visit Orthopedic Surgery [address] [phone] Alfie Granados, DPLisa Pain in both feet (Primary Dx); Pes planus of both feet; Equinus contracture of left ankle; Plantar fasciitis from Last 3 Months Immunizations Name Administration Dates Next Due Influenza Quadravalent, MDCK , 0.5ml, preservative free (Flucelvax) 6mo and older 02/02/2022,07/01/2020 Influenza trivalent, 0.5mL, preservative free (Fluarix; FluLaval; Fluzone) ages 6mo and older (Afluria) 3 years and older 02/21/2021,02/25/2016,03/05/2015,2013 Influenza trivalent, with preservative (Fluzone; Afluria) 6mo and older 03/16/2019,03/04/2017,02/23/2006 Tdap Tetanus diptheria acell ular pertussis (Boostrix; Adacel) 7yo and older 08/13/2012 Surgical History Surgery Date Site/Laterality Comments CHOLECYSTECTOMY PROCEDURE: HISTORICAL CHOLECYSTECTOMY TUBAL LIGATION 2006 PROCEDURE: HISTORICAL TUBAL LIGATION KNEE ARTHROSCOPY 11/01 Right PROCEDURE: [place] ARTHROSCOPY AID [place] SPINE&/FX KNEE W/O FIXJ; COMMENT: patellar tracking problems OTHER SURGICAL HISTORY 2010 PROCEDURE: [place] UNLISTED LAPAROSCOPY PROCEDURE OVIDUCT OVARY; COMMENT: torsion with removal of scar tissue SECTION PROCEDURE: [place] DELIVERY ONLY; COMMENT: 2004 and 2006 FINE NEEDLE ASPIRATION 12/13/2018 Left PROCEDURE: FINE NDLE ASPRTN W/IMAGING GUIDANCE; COMMENT: no sent out for pathology Medical History Medical History Date Comments Cholelithiasis DX:Cholelithiasi s Asthma DX:Asthma Migraine DX:Migraine; COM MENT: 7 years ago Gastroesophageal reflux dise ase without esophagitis 07/25/2017 DX:Gastroesophageal reflux d isease without esophagitis Seasonal allergies DX:Seasonal a llergies Left ankle pain 03/03/2019 DX:Left ankle pa in Family History Medical History Relation Name Comments Thyroid disease Brother 1 Seizures Brother 2 Diabetes Brother 3 lyme No Known Problems Brother 4 No Known Problems Brother 5 ADD / ADHD Daughter ODD, depression /anxiety, ? bipolar Hypertension Father hypercholestero lemia, arthritis No Known Problems Maternal Grandfather Stroke Maternal Grandmother alzheim er's Other: MVA Mother Arthritis Paternal Grandfather Arthritis Paternal Grandmother [place] Asthma Son eczema, shellfi sh and seasonal allergies, underweight Breast cancer Neg Hx Colon cancer Neg Hx Prostate cancer Neg Hx Uterine cancer Neg Hx Relation Name Status Comments Brother 1 Alive Brother 2 Alive Brother 3 Alive Brother 4 Alive Brother 5 Alive Daughter Alive Father Alive Maternal Grandfather Maternal Grandmother Mother Paternal Grandfather Paternal Grandmother Son Alive Social History Tobacco Use Types Packs/Day Years Used Date Smoking Tobacco: Never Smokeless Tobacco: Never Tobacco Cessation:Counseling Given: Not Answered Alcohol Use Standard Drinks/Week Comments Yes 0 (1 standard drink = 0.6 oz pur e alcohol) Comments Unknown Sex and Gender Information Value Date Recorded Sex Assigned at Not on file Legal Sex Female 9:24 AM EST Gender Identity Not on file Sexual Orientation Not on file Obstetrics History Last Filed Vital Signs Vital Sign Reading Time Taken Comments Blood Pressure 92/60 05/06/2024 11:33 AM EST Pulse 54 05/06/2024 11:33 AM EST Temperature 36.5 ??C (97.7 ??F) 05/06/2024 11:[address] Respiratory Rate 14 05/06/2024 11:33 AM EST Oxygen Saturation - - Inhaled Oxygen Concentration - - Weight 65.3 kg (144 lb) 05/06/2024 11:33 AM EST Height 149.9 cm (4' 11 ) 05/06/2024 11:33 AM EST Body Mass Index 29.08 05/06/2024 11:33 AM EST Plan of Treatment Upcoming Encounters Date Type Department Care Team (Late st Contact Info) Description 08/22/2024 10:30 AM EDT Appointment Radiology Department [address] [phone] 10/30/2024 2:45 PM EDT Office Visit Orthopedic Surgery - [place] [address] [facility] [address] [place] [address] Alfie Granados, DPLisa [address] [facility] [address] [place] [address] Health Maintenance Due Date Last Done Comments Hepatitis B Vaccines (1 of 3 - 19+ 3-dose series) 2001 Pneumococcal Vaccine: Pediatrics (0 to 5 Years) and At-Risk Patients (6 to 64 Years) (1 of 2 - PCV) 2001 Cervical Cancer Screening: HPV 2003 Depression Screening 04/29/2022 HIV Screening 04/29/2022 Hepatitis C Screening 04/29/2022 Social Influencers of Health Screening 04/29/2022 DTaP,Tdap,and Td Vaccines (2 - Td or Tdap) 08/13/2022 08/13/2012 Breast Cancer Screening 11/01/2022 11/02/19 21, 06/05/2019, 12/03/2018 COVID-19 Vaccine ( season) 2024 08/11/2021, 09/11/2020, 08/14/2020 Cholesterol Screening (Lipid Panel) 05/12/2029 05/12/2024, 02/02/2022 Influenza Vaccine Completed 02/13/2024, , 02/21/2021, Additional history exists HIB Vaccines Aged Out No longer eligi ble based on patient's age to complete this topic HPV Vaccines Aged Out No longer eligi ble based on patient's age to complete this topic Hepatitis A Vaccines Aged Out No long er eligible based on patient's age to complete this topic IPV Vaccines Aged Out No longer eligi ble based on patient's age to complete this topic MMR Vaccines Aged Out No longer eligi ble based on patient's age to complete this topic Meningococcal ACWY Vaccine Aged Out N o longer eligible based on patient's age to complete this topic Meningococcal B Vacine Aged Out No lo nger eligible based on patient's age to complete this topic RSV Immunization Patients Under 20 months Aged Out No longer eligible based on patient's age to complete this topic Varicella Vaccines Aged Out No longer eligible based on patient's age to complete this topic Procedures Procedure Name Priority Date/Time Associated Diagnosis Comments LIPID PANEL WITH REFLEX TO DIRECT LDL Routine 05/12/2024 10:51 AM EST Adult general medical examination COMPREHENSIVE METABOLIC PANEL Routine 05/12/2024 10:51 AM EST Adult general medical examination VITAMIN D 25 HYDROXY Routine 05/12/2024 10:51 AM EST Adult general medical examination CULTURE URINE Routine 05/06/2024 12:30 PM EST Urinary tract infection without hematuria, site unspecified INJECTION TENDON OR LIGAMENT Routine 05/01/2024 2:30 PM EST Plantar fasciitis DIAGNOSTIC MAMMOGRAPHY INCLUDING CAD BILATERAL Routine 11/01/2020 11:05 AM EDT Unspecified lump in the right breast, upper outer quadrant from Last 3 Months or Most Recently Relevant to Health Maintenance Results * (ABNORMAL) Lipid panel with reflex to direct LDL (05/12/2024 10:51 AM EST) Cholesterol 169 0 - 200 mg/dL LAB CHEMISTRY METHOD 05/12/2024 3:00 PM [facility] Triglycerides 63 0 - 150 mg/dL LAB CHEMISTRY METHOD 05/12/2024 3:00 PM [facility] HDL 52 >=40 mg/dL LAB CHEMISTRY METHOD 05/12/2024 3:00 PM [facility] LDL Calculated 104(H) 0 - 100 mg/dL LAB CHEMISTRY METHOD 05/12/2024 3:00 PM [facility] VLDL Cholesterol Suhail 12.6 mg/dL LAB CHEMISTRY METHOD 05/12/2024 3:00 PM [facility] Non HDL Chol. (LDL+VLDL) 117 <145 mg/dL LAB CHEMISTRY METHOD 05/12/2024 3:00 PM [facility] Chol/HDL Ratio 3.3 0.0 - 4.4 LAB CHEMISTRY METHOD 05/12/2024 3:00 PM EST [facility] Blood Venous blood specimen / Unknown Venipuncture / Unknown 05/12/2024 10:51 AM EST 05/12/2024 10:51 AM EST Marlena Yo MD LAB BLOOD ORDERABL ES Final Result Performing Organization Address [facility]/ZIP Co de Phone Number [facility] [address] [place] [address], [place] [phone] * (ABNORMAL) Vitamin D 25 hydroxy (05/12/2024 10:51 AM EST) Pathologist [facility] Vit D, 25-Hydroxy 24.5(L) 30.0 - 80.0 ng/mL LAB CHEMISTRY METHOD 05/12/2024 3:08 PM EST [facility] Blood Venous blood specimen / Unknown Venipuncture / Unknown 05/12/2024 10:51 AM EST 05/12/2024 10:51 AM EST Marlena Yo MD LAB BLOOD ORDERABL ES Final Result Performing Organization Address [facility] Co de Phone Number [facility] [address] [place] [address], [place] [phone] * (ABNORMAL) Comprehensive metabolic panel (05/12/2024 10:51 AM EST) [facility] Sodium 140 133 - 145 mmol/L LAB CHEMISTRY METHOD 05/12/2024 2:59 PM EST [facility] Potassium 4.2 3.5 - 5.5 mmol/L LAB CHEMISTRY METHOD 05/12/2024 2:59 PM EST [facility] Chloride 108 96 - 110 mmol/L LAB CHEMISTRY METHOD 05/12/2024 2:59 PM EST [facility] CO2 26 21 - 32 mmol/L LAB CHEMISTRY METHOD 05/12/2024 2:59 PM [facility] Anion Gap 6 3 - 11 LAB CHEMISTRY METHOD 05/12/2024 2:59 PM [facility] Glucose 87 70 - 100 mg/dL LAB CHEMISTRY METHOD 05/12/2024 2:59 PM [facility] BUN 13 5 - 25 mg/dL LAB CHEMISTRY METHOD 05/12/2024 2:59 PM [facility] Creatinine 0.84 0.50 - 1.10 mg/dL LAB CHEMISTRY METHOD 05/12/2024 2:59 PM [facility] eGFR 90 >=60 mL/min/1. 73m2 LAB CHEMISTRY METHOD 05/12/2024 2:59 PM [facility] Comment:Calculation based on the??Chronic Kidney Disease Epidemiology Collaboration (CKD-EPI) equation refit??without adjustment for race. BUN/Creatinine Ratio 15.5 LAB CHEMISTRY METHOD 05/12/2024 2:59 PM [facility] Calcium 9.5 8.5 - 10.5 mg/dL LAB CHEMISTRY METHOD 05/12/2024 2:59 PM [facility] AST (SGOT) 11 10 - 42 unit/L LAB CHEMISTRY METHOD 05/12/2024 2:59 PM [facility] ALT (SGPT) 18 10 - 60 unit/L LAB CHEMISTRY METHOD 05/12/2024 2:59 PM [facility] Alkaline Phosphatase 58 42 - 121 unit/L LAB CHEMISTRY METHOD 05/12/2024 2:59 PM [facility] Total Protein 7.3 6.0 - 8.0 g/dL LAB CHEMISTRY METHOD 05/12/2024 2:59 PM [facility] Albumin 3.8 3.2 - 5.0 g/dL LAB CHEMISTRY METHOD 05/12/2024 2:59 PM [facility] Total Bilirubin 1.5(H) 0.0 - 1.4 mg/dL LAB CHEMISTRY METHOD 05/12/2024 2:59 PM EST [facility] Blood Venous blood specimen / Unknown Venipuncture / Unknown 05/12/2024 10:51 AM EST 05/12/2024 10:51 AM EST us Marlena Yo MD LAB BLOOD ORDERABL ES Final Result [facility] [address] [place] [address], * (ABNORMAL) Culture urine (05/06/2024 12:30 PM EST) Culture, Urine >100,000 CFU/mL Escherichia coli ESBL(A) ALEKSANDAR 05/09/2024 9:06 AM EST [facility] Comment: THIS ORGANISM IS POSITIVE FOR EXTENDED SPECTRUM BETA-LACTAMASE (ESBL). ??EXTENDED SPECTRUM BETA-LACTAMASE ??PRODUCING ORGANISMS DEMONSTRATE DECREASED ACTIVITY WITH PENICILLILNS, CEPHALOSPORINS AND AZTREONAM. This is an edited result. Previous organism was Gram negative bacilli on 05/07/2024 at 1304 EST. Edited result: Previously reported as Escherichia coli on 05/08/2024 at 1030 EST. Urine Urine specimen obtained by clean catch procedure / Unknown Non-blood Collection / Unknown 05/06/2024 12:30 PM EST 05/06/2024 12:30 PM EST Narrative [facility] - 05/09/2024 9:06 AM EST Results faxed 05/09/24 at 0905 Organism Antibiotic Method Susceptibility Escherichia coli ESBL Amoxicillin/Clavulanate ALEKSANDAR 8 ug/ml: Susceptible Escherichia coli ESBL Ampicillin/Sulbactam ALEKSANDAR 8 ug/ml: Susceptible Escherichia coli ESBL Piperacillin/Tazobactam ALEKSANDAR <=4 ug/ml: Susceptible Escherichia coli ESBL Cefazolin (Urine) ALEKSANDAR >=32 ug/ml: Resistant Escherichia coli ESBL Cefoxitin ALEKSANDAR <=4 ug/ml: Susceptible Escherichia coli ESBL Ceftazidime ALEKSANDAR 8 ug/ml: Intermediate Escherichia coli ESBL Ceftriaxone ALEKSANDAR >=64 ug/ml: Resistant Escherichia coli ESBL Cefepime ALEKSANDAR 16 ug/ml: Resistant Escherichia coli ESBL Meropenem ALEKSANDAR <=0.25 ug/ml: Susceptible Escherichia coli ESBL Amikacin ALEKSANDAR 2 ug/ml: Susceptible Escherichia coli ESBL Gentamicin ALEKSANDAR <=1 ug/ml: Susceptible Escherichia coli ESBL Ciprofloxacin ALEKSANDAR 0.5 ug/ml: Intermediate Escherichia coli ESBL Levofloxacin ALEKSANDAR 1 ug/ml: Intermediate Escherichia coli ESBL Nitrofurantoin ALEKSANDAR <=16 ug/ml: Susceptible Escherichia coli ESBL Trimethoprim/Sulfa methoxazol e ALEKSANDAR <=20 ug/ml: Susceptible Marlena Yo MD LAB MICROBIOLOGY - GENERAL ORDERABLES Final Result [facility] ([facility]) [facility] [address] [place] [address], * Injection tendon or ligament (05/01/2024 2:30 PM EST) Narrative Alfie Granados DPM - 05/01/2024 2:30 PM EST Alfie Granados DPM ? 05/01/2024 ??5:35 PM Injection tendon or ligament Indications: pain Details: 25 G needle Medications: 1 mL lidocaine (PF) 1 %; 40 mg triamcinolone acetonide 40 mg/mL Informed Consent: ??Laterality: ??Left Alfie Granados DPM IN CLINIC/BEDSIDE ORDERABLE S Final Result * DIAGNOSTIC MAMMOGRAPHY INCLUDING CAD BILATERAL (11/01/2020 11:05 AM EDT) Anatomical Region Laterality Modality Mammography 10/20/2020 8:52 AM EDT Narrative 11/01/2020 12:18 PM EDT This is a summary report. The complete report is available in the patient's medical record. If you cannot access the medical record, please contact the sending organization for a detailed fax or copy. Exam: Bilateral diagnostic mammogram and right breast ultrasound History: Palpable tender right breast lump. Comparison: Mammography as recent as 06/05/2019 and as far back as 09/28/2015 Findings: Bilateral full-field digital diagnostic mammography was performed with tomosynthesis and interpreted with computer-aided detection. Breast parenchyma is heterogeneously dense, limiting mammographic sensitivity. ??Waxing and waning bilateral circumscribed lesions which is a pattern seen with cysts and bilateral breast cysts have been documented on previous sonograms. ??No one area has more suspicious features another. ??No architectural distortion or suspicious calcifications. BB marker placed at the site of the palpable lump in the upper outer right breast corresponds with a 2 cm circumscribed lesion on mammography. ??Ultrasound shows a corresponding 1.8 x 1.6 x 1.1 cm avascular anechoic lesion with through- transmission compatible with a cyst which is located at the 10 o'clock position, 4 cm from the nipple. ??No surrounding hyperemia on color Doppler. ??Cyst aspiration under ultrasound guidance has been scheduled for symptomatic relief. Impression: Palpable right breast lump corresponds with a 1.8 cm cyst. ??Cyst aspiration under ultrasound guidance has been scheduled for symptomatic relief of right breast pain. No mammographic evidence of malignancy. BI-RADS 2-benign Procedure Note Neelima Arenas MD - 05/09/2022 This is a summary report. The complete report is available in thepatient's medical record. If you cannot access the medical record, pleasecontact the sending organization for a detailed fax or copy. Exam: Bilateral diagnostic mammogram and right breast ultrasound History: Palpable tender right breast lump. Comparison: Mammography as recent as 06/05/2019 and as far back as09/28/2015 Findings: Bilateral full-field digital diagnostic mammography was performed withtomosynthesis and interpreted with computer-aided detection. Breast parenchyma is heterogeneously dense, limiting mammographicsensitivity. Waxing and waning bilateral circumscribed lesions which is apattern seen with cysts and bilateral breast cysts have been documented onprevious sonograms. No one area has more suspicious features another. Noarchitectural distortion or suspicious calcifications. BB marker placed at the site of the palpable lump in the upper outer rightbreast corresponds with a 2 cm circumscribed lesion on mammography.Ultrasound shows a corresponding 1.8 x 1.6 x 1.1 cm avascular anechoiclesion with through- transmission compatible with a cyst which is locatedat the 10 o'clock position, 4 cm from the nipple. No surroundinghyperemia on color Doppler. Cyst aspiration under ultrasound guidance hasbeen scheduled for symptomatic relief. Impression: Palpable right breast lump corresponds with a 1.8 cm cyst. Cystaspiration under ultrasound guidance has been scheduled for symptomaticrelief of right breast pain. No mammographic evidence of malignancy. BI-RADS 2-benign Yolanda Markus JOEP IMG BI PROCEDURES Final Result from Last 3 Months or Most Recently Relevant to Health Maintenance Additional Health Concerns Infection Onset Date Last Indicated ESBL 05/06/2024 05/06/[address] [place] [place] [address] [employer] PLAN Care Teams Housekeeping Assistant Relationship Specialty Start Date End Date Marlena Yo MD [address] [place] [phone] PCP - General Internal Medicine 05/06/24
== END 2024-07-04 10:31 | disposition home or self-care (01) ==
PROVIDERS: PCP Internal Medicine; Visit Provider Student in an Organized Health Care Education/Training Program
DX: G62.9 Polyneuropathy, unspecified (principal)
CPT/HCPCS: 99213; G2211

== ENCOUNTER → 2024-07-04 09:46 | Outpatient (BNVA) | payer OTHER, SELFPAY | PROVIDERS: PCP Internal Medicine; Visit Provider Student in an Organized Health Care Education/Training Program | DX: G62.9 Polyneuropathy, unspecified (principal) | CPT/HCPCS: 99212 ==

== ENCOUNTER 2024-07-30 07:57 | Outpatient (REF) | payer OTHER, SELFPAY ==
--- OUTSIDE RECORDS SUMMARY | 2024-07-30 08:00 | XMS_ITS | Clinical Summary ---
Author Organization 175 [facility] Address [address] [place] [address] Phone Care Team Providers Care Mail Sorting Supervisor Name Role Phone Marlena Yo MD Primary [...] 11:30 AM EST Office Visit Adult Medicine [address] [phone] Marlena Kraus MD Adult general medical examination (Primary Dx); Encounter for screening mammogram for malignant neoplasm of breast; Urinary tract infection without hematuria, site unspecified; Skin tag 05/01/2024 2:30 PM EST Office Visit Orthopedic Surgery [address] [phone] Alfie Granados, DPLisa Pain in both feet [...] TUBAL LIGATION KNEE ARTHROSCOPY 11/01 Right PROCEDURE: [place] ARTHROSCOPY AID [place] SPINE&/FX KNEE W/O FIXJ; COMMENT: patellar tracking problems OTHER SURGICAL HISTORY 2010 PROCEDURE: [place] UNLISTED LAPAROSCOPY PROCEDURE OVIDUCT OVARY; COMMENT: torsion with removal of scar tissue SECTION PROCEDURE: [place] DELIVERY ONLY; COMMENT: 2004 and 2006 FINE [...] Mother Arthritis Paternal Grandfather Arthritis Paternal Grandmother [place] Asthma Son eczema, shellfi sh and seasonal [...] 08/22/2024 10:30 AM EDT Appointment Radiology Department [address] [phone] 10/30/2024 2:45 PM EDT Office Visit Orthopedic Surgery - [place] [address] [facility] [address] [place] [address] Alfie Granados, DPLisa [address] [facility] [address] [place] [address] Health Maintenance Due Date Last Done Comments [...] LAB CHEMISTRY METHOD 05/12/2024 3:00 PM EST [facility] Blood Venous blood specimen / Unknown Venipuncture / Unknown 05/12/2024 10:51 AM EST 05/12/2024 10:51 AM EST Marlena Yo MD LAB BLOOD ORDERABL ES Final Result Performing Organization Address [facility]/ZIP Co de Phone Number [facility] [address] [place] [address], [place] [phone] * (ABNORMAL) Vitamin D 25 hydroxy (05/12/2024 10:51 AM EST) Pathologist [facility] Vit D, 25-Hydroxy 24.5(L) 30.0 - 80.0 ng/mL LAB CHEMISTRY METHOD 05/12/2024 3:08 PM EST [facility] Blood Venous blood specimen / Unknown Venipuncture / Unknown 05/12/2024 10:51 AM EST 05/12/2024 10:51 AM EST Marlena Yo MD LAB BLOOD ORDERABL ES Final Result Performing Organization Address [facility] Co de Phone Number [facility] [address] [place] [address], [place] [phone] * (ABNORMAL) Comprehensive metabolic panel (05/12/2024 10:51 AM EST) [facility] Sodium 140 133 - 145 mmol/L LAB CHEMISTRY METHOD 05/12/2024 2:59 PM EST [facility] Potassium 4.2 3.5 - 5.5 mmol/L LAB CHEMISTRY METHOD 05/12/2024 2:59 PM EST [facility] Chloride 108 96 - 110 mmol/L LAB CHEMISTRY METHOD 05/12/2024 2:59 PM EST [facility] CO2 26 21 - 32 [...] LAB CHEMISTRY METHOD 05/12/2024 2:59 PM EST [facility] Blood Venous blood specimen / Unknown Venipuncture / Unknown 05/12/2024 10:51 AM EST 05/12/2024 10:51 AM EST us Marlena Yo MD LAB BLOOD ORDERABL ES Final Result [facility] [address] [place] [address], * (ABNORMAL) Culture urine (05/06/2024 12:30 PM EST) Culture, Urine >100,000 CFU/mL Escherichia coli ESBL(A) ALEKSANDAR 05/09/2024 9:06 AM EST [facility] Comment: THIS ORGANISM IS POSITIVE [...] PM EST 05/06/2024 12:30 PM EST Narrative [facility] - 05/09/2024 9:06 AM EST [...] LAB MICROBIOLOGY - GENERAL ORDERABLES Final Result [facility] ([facility]) [facility] [address] [place] [address], * Injection tendon or ligament (05/01/2024 2:30 PM EST) Narrative Alfie Granados DPM - 05/01/2024 2:30 PM EST Alfie Granados DPM ? 05/01/2024 ??5:35 PM Injection tendon or ligament Indications: pain Details: 25 G needle Medications: 1 mL lidocaine (PF) 1 %; 40 mg triamcinolone acetonide 40 mg/mL Informed Consent: ??Laterality: ??Left lAfie Granados DPM IN CLINIC/BEDSIDE ORDERABLE S Final [...] evidence of malignancy. BI-RADS 2-benign Yolanda Markus JEOP IMG BI PROCEDURES Final Result from Last 3 Months or Most Recently Relevant to Health Maintenance Additional Health Concerns Infection Onset Date Last Indicated ESBL 05/06/2024 05/06/[address] [place] [address] [employer] [place] [address] Care Teams Mail Sorting Supervisor Relationship Specialty Start Date End Date Marlena Yo MD [address] [place] [address] [phone] PCP - General Internal Medicine 05/06/24
--- NOTE | 2024-07-30 08:19 | EMG_ITS ---
Chief complaint: Left arm pain Reason for referral: Evaluate for Carpal Tunnel Syndrome Referred by: Dr. Stone Procedure done: Left upper extremity NCS/EMG Precautions and/or limitations: None The limb temperature was monitored continuously and remained between 32-36 degrees C during the performance of the NCS. Nerve Conduction Studies Anti Sensory Summary Table ?Stim Site NR Onset (ms) Norm Onset (ms) Peak (ms) Norm Peak (ms) O-P Amp (?V) Norm O-P Amp Site1 Site2 Delta-0 (ms) Dist (cm) Judah (m/s) Norm Judah (m/s) Left Median Anti Sensory (2nd Digit) Wrist ? 2.7 3.4 <3.6 15.5 >10 Wrist 2nd Digit 2.7 14.0 52 Left Radial Anti Sensory (Thumb) Forearm ? 1.6 2.2 <3.1 33.7 Forearm Thumb 1.6 0.0 Left Ulnar Anti Sensory (5th Digit) Wrist ? 2.1 2.9 <3.7 20.8 >15.0 Wrist 5th Digit 2.1 14.0 67 Motor Summary Table ?Stim Site NR Onset (ms) Norm Onset (ms) O-P Amp (mV) Norm O-P Amp iAmp (mV) Amp (1st) (%) Site1 Site2 Delta-0 (ms) Dist (cm) Judah (m/s) Norm Judah (m/s) Left Median Motor (Abd Poll Brev) Wrist ? 3.3 <3.9 9.3 >4.5 11.0 100.0 Elbow Wrist 3.0 16.0 53 >45 Elbow ? 6.3 9.1 11.1 97.8 Left Ulnar Motor (Abd Dig Minimi) Wrist ? 2.8 <3.0 6.6 >5 7.2 100.0 B Elbow Wrist 2.4 15.0 62 >45 B Elbow ? 5.2 6.7 7.2 101.5 A Elbow B Elbow 1.5 10.0 67 >45 A Elbow ? 6.7 6.4 6.9 97.0 Paraspinal EMG ?Side Muscle Nerve Root Ins Act Fibs Psw Comment Left Cervical Upper Rami Nml Nml Nml Left Cervical Mid Rami Nml Nml Nml Left Cervical Lower Rami Nml Nml Nml EMG ?Side Muscle Nerve Root Ins Act Fibs Psw Amp Dur Poly Recrt Int Pat Comment Left 1stDorInt Ulnar C8-T1 Nml Nml Nml Nml Nml 0 Nml Complete Left FlexCarRad Median C6-7 Nml Nml Nml Nml Nml 0 Nml Complete Left Biceps Musculocut C5-6 Nml Nml Nml Nml Nml 0 Nml Complete Left Triceps Radial C6-7-8 Nml Nml Nml Nml Nml 0 Nml Complete Left Deltoid Axillary C5-6 Nml Nml Nml Nml Nml 0 Nml Complete FINDINGS: All motor and sensory nerves tested showed normal latencies, amplitudes and conduction velocities. Concentric needle EMG was performed in selected muscles of the left upper extremity and cervical paraspinals. Study did not reveal signs of electric abnormalities as shown in the table above. IMPRESSION: 1. This is a normal study. 2. There is no electrodiagnostic evidence for median neuropathy, ulnar neuropathy, brachial plexopathy, or cervical radiculopathy. Thank you for your kind referral. Catie Hein MD, BECKA Board Certified, [employer] and [employer] (ABPMR) Board Certified, [employer] Board [employer] Electrodiagnostic Medicine (ABEM) CODIN [id number] MTDD
[2024-07-30 09:10] LABS: MANUAL DIFF FLAG NO
[2024-07-30 09:51] LABS: Basophils Percent Auto 0.5 % (0-2); Eosinophils Absolute Auto 0.1 X10*3/uL (0.0-0.4); Eosinophils Percent Auto 1.5 % (0-4); Hematocrit 43.9 % (37.0-47.0); Hemoglobin 15.1 g/dl (12.0-16.0); Imm Gran Abs Auto 0.02 X10*3/uL (0.00-0.03); Imm Gran Pct Auto 0.3 % (0.0-0.4); Lymphocytes Absolute Auto 1.5 X10*3/uL (1.2-4.9); Lymphocytes Percent Auto 25.6 % (20-40); Mean Corpuscular HGB Conc 34.4 g/dl (31.0-35.0); Mean Corpuscular Hemoglobin 31.7 pg (27.0-33.0); Mean Platelet Volume 11.2 fL (9.4-12.3); Monocytes Absolute Auto 0.4 X10*3/uL (0.1-1.2); Neutrophils Absolute Auto 3.8 x10*3/uL (2.0-8.3); Neutrophils Percent Auto 66.1 % (45-73); Platelet Count 269 X10*3/uL (160-400); Red Blood Count 4.77 X10*6/uL (4.20-5.50); Red Cell Distribution Width 12.2 % (11.0-16.0); White Blood Count 5.8 X10*3/uL (4.8-10.8)
[2024-07-30 10:33] LABS: Erythrocyte Sedimentation Rate 6 MM/HR (0-20)
[2024-07-30 10:35] LABS: Alanine Aminotransferase 21 U/L (0-31); Albumin Level 4.2 g/dL (3.5-5.0); Alkaline Phosphatase 51 U/L (39-117); Anion Gap 10 (12-20); Aspartate Amino Transferase 37 U/L (5-31); Bilirubin Total 1.7 mg/dL (0.0-1.0); Blood Urea Nitrogen 13 mg/dL (9-16); Calcium 9.4 mg/dL (8.4-10.2); Carbon Dioxide 24 mmol/L (22-29); Chloride 110 mmol/L (96-108); Estimated Glomerular Filt Rate > 60; Glucose Random 80 mg/dL (60-115); Potassium 4.2 mmol/L (3.3-5.1); Sodium 140 mmol/L (135-145); Total Protein 7.8 g/dL (6.5-8.0)
[2024-07-30 10:51] LABS: Vitamin B12 283 pg/mL (200-900)
[2024-07-30 11:03] LABS: TSH reflex Free T4 1.17 uIU/mL (0.32-4.0)
== END 2024-07-30 07:58 | disposition home or self-care (01) ==
LOC: HO.NEURO 07:57
PROVIDERS: PCP Internal Medicine; Visit Provider Student in an Organized Health Care Education/Training Program
DX: G62.9 Polyneuropathy, unspecified (principal); E55.9 Vitamin D deficiency, unspecified
CPT/HCPCS: 36415; 80053; 82306; 82607; 84443; 85025; 85652; 86140; 95886; 95909

== ENCOUNTER → 2024-07-30 08:19 | Outpatient (BNV) | payer OTHER, SELFPAY | PROVIDERS: PCP Internal Medicine; Visit Provider Physical Medicine & Rehabilitation | DX: M79.602 Pain in left arm (principal) | CPT/HCPCS: 95886; 95909 ==

== ENCOUNTER 2024-08-13 07:24 | Outpatient (AMB) | payer OTHER, SELFPAY ==
[2024-08-13 07:35] VITALS: BP 108/64; PULSE 102; O2SAT 99; BMI 28.9
--- NOTE | 2024-08-13 07:35 | MHC.OFFVIS ---
Vital Signs 08/13/24 07:35 Height 4 ft 11 in Weight 143 lb 4.807 oz BMI 28.9 BP 108/64 Blood Pressure Location Lt brachial Position Sitting Pulse 102 H Pulse Source Pulse Oximeter Pulse Oximetry (%) 99 Oxygen Delivery Method Room Air Intake Visit Reasons: 1 month Intake Note: Patient last seen by Doctor Marge Stone on 07/04/24. Presents today for 1 month follow up and test results. Patient would like refill of diclofenac gel. Allergies prednisone Adverse Reaction (Intermediate, Verified 08/13/24 07:36) HEART RACING benzoyl peroxide [From Benzamycin] Adverse Reaction (Unknown, Verified 08/13/24 07:36) Rash erythromycin base [From Benzamycin] Adverse Reaction (Unknown, Verified 08/13/24 07:36) Rash SEAFOOD Allergy (Intermediate, Uncoded 08/13/24 07:36) TONGUE SWELLING Medication List - Last Reconciled 08/13/24 by Marge Stone MD albuterol sulfate 90 mcg/actuation 2 inhalations inhalation Q6H PRN amitriptyline 25 mg PO BEDTIME [id number] 50-325-40 mg 1 tab PO Q8H PRN cefuroxime axetil 250 mg PO Q12H 5 days cholecalciferol (vitamin D3) 25 mcg PO DAILY cyanocobalamin (vitamin B-12) 500 mcg PO DAILY diclofenac sodium 1% (Voltaren Arthritis Pain) 4 grams topical QID epinephrine 0.3 mg IM ONCE PRN ibuprofen 600 mg PO Q6H PRN [thumb spica As directed use as much as possible throughout the day] valacyclovir 1,000 mg PO DAILY PRN HPI Comments Details: Patient is a 44-year-old female with depression and chronic migraine headaches here today for follow up Interval History: Patient last seen 07/04/2024 with me. At that time she was complaining of a transient sharp pain to the tip of her lateral 3 fingers on the left hand. Blood work an EMG ordered Today, Patient reports no change in her symptoms Rheumatologic History: Initial history: This is a 41-year-old female with a past medical history of asthma, migraines presents for evaluation of an inflammatory arthritis.. Patient stated she has had bilateral hand pain and stiffness for years. Her hand pain is worse with activity. She had a positive BANDAR in the past and was evaluated by Dr. Jonas in 2018 and was deemed not to have an inflammatory arthritis. She had bilateral thumb trigger finger injections which helped for a few months. She states she has always been wobbly when she walks and recently she injured her right ankle. She also has been having worsening fatigue and headaches over the last few weeks. More than a year ago she developed an itchy skin rash on her breast. She was evaluated by Dermatology and she was advised to take Darlene daily to prevent the rash. She states that some of these rashes are worse in the sun. She did not have a skin biopsy. She denies any blood or frothy urine. No history of DVT/PE. Current Rheumatology Medication(s): Diclofenac gel 1% topical PFSH Medical History (Updated 08/13/24 @ 08:00 by Marge Stone MD) Hepatic steatosis Migraine Asthma Ovarian cyst COVID-19 Surgical History History of removal of ovarian cyst Hx of arthroscopic knee surgery Hx of cholecystectomy S/P fine needle aspiration History of 2 sections Hx of tubal ligation Family History Father Hypertension Arthritis Hypercholesteremia Paternal Grandfather Arthritis Paternal Grandmother Arthritis Brother Thyroid disease Seizures Other Diabetes Social History Alcohol intake: never Patient Tobacco Use Status: Never used Tobacco Current occupational status: employed 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 Review of Systems Const Details: Review of Systems Constitutional: Denies fever, chills, weight loss ENT: Denies vision changes, eye pain or eye redness, dental caries, dry mouth GI: Denies nausea, vomiting, diarrhea, abdominal pain, change in BM Pulm: Denies SOB, SCHAEFER, hemoptysis, wheezing Cards: Denies chest pain, palpitations Skin: Denies Raynaud's, rash, nail changes, photosensitivity, TMD TEACHER ASSISTANT: Denies headaches, weakness, paresthesias, recurrent falls MSK: as per HPI All other systems reviewed and are unremarkable except noted above Physical Exam Vital Signs: Last Vital Signs Pulse 102 H 08/13/24 07:35 BP 108/64 08/13/24 07:35 Pulse Ox 99 08/13/24 07:35 Oxygen Delivery Method Room Air 08/13/24 07:35 BMI result Body Mass Index 28.9 Vital signs reviewed Physical Examination CONSTITUITIONAL Patient alert and cooperative. Well appearing and in no apparent painful distress HEENT Conjunctiva and sclera clear. ?Pupils equal round and reactive to light. ?No lymphadenopathy. ? CHEST/RESPIRATORY SYSTEM Normal respiratory effort and able to speak in complete sentences. ?Clear to auscultation bilaterally. ?No crackles, rales, rhonchi, wheezes heard. CARDIAC SYSTEM Regular rate and rhythm. ?S1 and S2 heard no murmurs. ?Radial pulses intact bilaterally MSK Hands: ?Good search engine optimization strategist strength bilaterally. No deformities noted. ?No synovitis noted to the MCPs, PIPs or DIPs. ?No tenderness to palpation of these joints. Wrists: ?Full range of motion at the wrists without pain. ?No tenderness to palpation or synovitis noted to the wrists. Elbows: Full range of motion without pain. No tenderness, weakness, swelling, increased warmth or erythema. Shoulders: Full range of motion without pain. No tenderness, weakness, swelling, increased warmth or erythema. Hips: Full range of motion without pain. Hip bursa: No tenderness to palpation Knees: ?Full range of motion. ?No tenderness, swelling, increased warmth or erythema.?No effusion or crepitations Ankles: Full range of motion. ?No tenderness, swelling, increased warmth or erythema.? Feet: ?Negative squeeze test. ?No tenderness to palpation or swelling of the MTPs. Tender points:?No tenderness to palpation of the bilateral trapezius, supraspinatus, greater trochanters, anterior costochondral junctions, bilateral gluteal areas, bilateral suboccipital muscle insertions SKIN Skin intact without rashes. Results Reviewed Results Reviewed: Laboratory Tests 07/30/24 09:09 WBC 5.8 RBC 4.77 Hgb 15.1 Hct 43.9 Plt Count 269 ESR 6 Sodium 140 Potassium 4.2 Chloride 110 H Carbon Dioxide 24 BUN 13 Creatinine 0.76 Total Bilirubin 1.7 H AST 37 H ALT 21 Alkaline Phosphatase 51 C-Reactive Protein 0.10 Total Protein 7.8 Albumin 4.2 Vitamin B12 283 25-OH Vitamin D Total 22 L TSH 1.17 Immunology labs 03/17/22 11:02 BANDAR Screen NEGATIVE SS-A/Ro Antibody <1.0 NEG SS-B/La Antibody <1.0 NEG Sm (Singh) Antibody <1.0 NEG SM/FIRE ALARM DISPATCHER IgG Antibody <1.0 NEG Double Strand DNA Ab <1 Anti-ds DNA (Crithidia) Negative Beta-2-GPI IgG Ab <2.0 Beta-2-GPI IgA Ab <2.0 Beta-2-GPI IgM Ab 7.1 Thyroglobulin Antibody <1 Thyroid Peroxidase Ab 2 Anti-Cardiolipin IgG Ab <2.0 Anti-Cardiolipin IgM Ab 3.5 Complement C3 150 Complement C4 31 Assessment & Plan Assessment & Plan (1) Numbness and tingling in left hand: Code(s): R20.0 - Anesthesia of skin; R20.2 - Paresthesia of skin Plan: #?Neuropathy Patient complaining of shooting pain down the left arm that is transient and intermittent Differentials: herniated cervical disc, thoracic outlet syndrome, shoulder impingment syndrome, cubital tunnel syndrome, radial tunnel syndrome and brachial plexus injury Labs overall unremarkable except for a low vitamin-D. Recommending vitamin-D supplementation over the counter EMG also unremarkable. At this time I do not think that her symptoms are related to underlying nerve damage. Would still like for her to check heavy metals. Inform patient that if symptoms become more persistent we can pursue x-rays of the neck and chest. Plan - follow up p.r.n. if symptoms worsen Plan I spent 20 minutes reviewing the record and labs, taking a history, examining the patient, discussing the treatment plan and documenting in the medical record Medications: Refilled diclofenac sodium 1% (Voltaren Arthritis Pain) apply to single knee, ankle, foot; for foot includes sole/toes/top of foot 4 grams topical QID 100 grams 2RF M65.4 - Radial styloid tenosynovitis [de Quervain] Coding Level of Care Code Est Pt Level 3 (61450) Diagnoses Numbness and tingling in left hand R20.0; R20.2
== END 2024-08-13 07:55 | disposition home or self-care (01) ==
LOC: HO.RHE 07:25
PROVIDERS: PCP Internal Medicine; Visit Provider Student in an Organized Health Care Education/Training Program
DX: R20.0 Anesthesia of skin (principal); R20.2 Paresthesia of skin
CPT/HCPCS: 99213

== ENCOUNTER → 2024-08-13 07:24 | Outpatient (BNVA) | payer OTHER, SELFPAY | PROVIDERS: PCP Internal Medicine; Visit Provider Student in an Organized Health Care Education/Training Program | DX: R20.2 Paresthesia of skin (principal); R20.0 Anesthesia of skin; M65.4 Radial styloid tenosynovitis [de Quervain]; M25.642 Stiffness of left hand, not elsewhere classified; M25.641 Stiffness of right hand, not elsewhere classified; M79.642 Pain in left hand; M79.641 Pain in right hand | CPT/HCPCS: 99212 ==